=== PATIENT | male | born 1935 | race Caucasian/White ===

== ENCOUNTER 2019-09-20 15:43 | Outpatient (CLI) | payer OTHER, SELFPAY ==
--- NOTE | 2019-09-20 16:14 | MR_ITS ---
WS: [id number] MRI CERVICAL SPINE HISTORY: CHRONIC NECK PAIN COMPARISON: None available. C3 anterolisthesis by 4.4 mm. Less than 2 mm retrolisthesis of C4. There is severe degenerative disc disease at C4-5, C5-6 and C6-7. Osteophytic ridging and disc bulgin g at multiple levels. Craniocervical junction, C1 and C2 relationship, odontoid process and soft tissues are normal. C2-C3: Mild osteophytic ridging with no stenosis. C3-C4: Mild unroofing of the disc. There is annular disc bulging and osteophytic ridging. Contact on the ventral cord moderate central and bilateral foraminal stenosis. C4-C5: Diffuse osteophytic ridging. Severe disc space narrowing at this level. Mild central stenosis. Severe bilateral foraminal stenosis, LEFT greater than RIGHT predominantly due to osteophytes. C5-C6: Marked osteophytic ridging and facet arthritis. Mild central stenosis with moderate bilateral foraminal stenosis, LEFT greater than RIGHT. C6-C7: Marked osteophytic ridging with mild central stenosis. Moderate bilateral foraminal stenosis. C7-T1: Diffuse annular disc bulging and osteophytic ridging. Mild facet arthropathy. Mild central and bilateral foraminal stenosis. Paraspinal soft tissue are normal. MR/MR cervical spin wo con* [id number] IMPRESSION: 1. Severe degenerative changes throughout the cervical spine. Multilevel steno ses due to combination of osteophytic ridging and disc disease. 2. C3 anterolisthesis by 4.4 mm. 3. Advanced degenerative disc disease most significant at C4-5, C5-6 and C6-7. 4. Moderate central and bilateral foraminal stenosis is at the C3-4 level. 5. Mild central stenosis with severe bilateral foraminal stenosis at C4-5. 6. Mild central stenosis with moderate bilateral foraminal stenosis at C5-6 an d C6-7.
== END 2019-09-20 15:44 | disposition home or self-care (01) ==
PROVIDERS: Family Provider Internal Medicine; PCP Internal Medicine; Visit Provider Emergency Medicine Emergency Medical Services
DX: G89.29 Other chronic pain (principal); M48.02 Spinal stenosis, cervical region; M25.78 Osteophyte, vertebrae; M50.323 Other cervical disc degeneration at C6-C7 level
CPT/HCPCS: 72141

== ENCOUNTER 2019-10-24 04:42 | Emergency (ER) | payer OTHER, MEDICARE, SELFPAY ==
[2019-10-24 04:45] VITALS: BP 188/79; PULSE 68; RESP 17; TEMP 36.8; O2SAT 97; BMI 19.5
--- NOTE | 2019-10-24 04:53 | CTR_ITS ---
PROCEDURE INFORMATION: Exam: CT Abdomen And Pelvis Without Contrast Exam date and time: 10/24/2019 5:28 AM Age: 84 years old Clinical indication: Abdominal pain; Flank; Right; Prior surgery; Surgery date: 6+ months; Surgery type: Appy; Additional info: Flank pain TECHNIQUE: Imaging protocol: Computed tomography of the abdomen and pelvis without contrast. Radiation optimization: All CT scans at this facility use at least one of these dose optimization techniques: automated exposure control; mA and/or kV adjustment per patient size (includes targeted exams where dose is matched to clinical indication); or iterative reconstruction. COMPARISON: CT Abdomen/Pelvis Renal [id number] 11/14/2016 8:38 AM RADIATION DOSE METRICS: Total DLP (mGy-cm): 492.86 FINDINGS: Lungs: There is right middle lobe and lingular bronchiectasis with patchy areas of irregular peribronchovascular consolidation. Liver: The liver is normal. Gallbladder and bile ducts: The gallbladder is normal. There is no biliary dilation. Pancreas: There is moderate atrophy of the pancreas. Spleen: Splenic size is normal. There are scattered calcifications consistent with healed granulomas. Adrenals: The adrenal glands are unremarkable. Kidneys and ureters: Moderate right hydronephrosis. Right renal and perirenal edema. Diffusely distended right ureter. 5 x 3 x 3 mm stone in the distal right ureter at the ureterovesical junction. No hydronephrosis or ureteral dilation on the left. There are bilateral nonobstructive intrarenal stones. Stomach and bowel: The stomach is unremarkable. The small bowel is nondilated. The colon is unremarkable. Appendix: The appendix is not definitively identified, although there are no secondary signs of appendicitis. Intraperitoneal space: There is no free air or significant intraperitoneal free fluid. Vasculature: There is moderate aortic atherosclerotic disease. There is no aortic aneurysm. Lymph nodes: There is no lymphadenopathy in the retroperitoneum, mesentery, pelvis or inguinal regions. Bladder: The bladder wall is thin. There is a 3 mm stone lying dependently in the bladder lumen near the left ureterovesical junction. Reproductive: The prostate and seminal vesicles are unremarkable. Bones/joints: There is severe multilevel degenerative disease in the lumbar spine. There is moderate degenerative disease of the right hip. The pelvis and hips are intact. Soft tissues: The ventral abdominal wall is intact. There is a fat containing right posterior diaphragmatic hernia. CT/CT kidney stone [id number] IMPRESSION: 1. 5 mm obstructive stone in the distal right ureter at the ureterovesical junction producing moderate hydronephrosis. 2. Bilateral nonobstructive nephrolithiasis. 3. 3 mm stone in the urinary bladder. 4. 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 5. Incidental findings above. Radiation Dose CTDIVOL = (mGy): DLP = 492.86 (mGy-cm)
--- NOTE | 2019-10-24 05:02 | W.ED.ABDPA2 ---
Documented by User: Tobias Polanco DO 10/24/19 05:50 HPI - Abdominal Pain General: Chief Complaint: Abdominal Pain Stated Complaint: ABD PAIN; R FLANK PAIN/BACK PAIN Time Seen by Provider: 10/24/19 04:52 History of Present Illness: HPI narrative: 84-year-old male complains of right-sided back and flank pain radiating into his abdomen for the last 7 days or so on and off. He notes that it came and went several times, but is been constant since midnight last night. No vomiting. No fever. Some hesitancy and frequency. No blood in the urine. MD elicited complaint: flank pain Pertinent past history: kidney stones Onset (ago): day(s) Pain Consistency: constant Location: R flank and Pelvis Severity: moderate Quality: stabbing Radiation: RLQ Exacerbating factors: movement Relieving factors: nothing Associated Symptoms: Reports constipation and nausea; Denies coffee ground emesis, fever(s), hematochezia, hematuria and vomiting Review of Systems Const: Denies: fever(s) Eyes: Denies: change in vision ENMT: Denies: swelling of lips/tongue Card: Denies: chest pain, palpitations or irregular heart rhythm Resp: Denies: dyspnea or productive cough GI: Reports: nausea and constipation; Denies: vomiting, coffee ground emesis or hematochezia : Denies: hematuria Musc: Reports: back pain; Denies: neck pain Skin/Breast: Denies: rash Neuro: Denies: headache(s), dizziness or vertigo Psych: Denies: anxiety Physical Exam Const: GENERAL APPEARANCE: well developed ORIENTATION/CONSCIOUSNESS: Yes oriented to person, Yes oriented to place and Yes oriented to time HENMT: COMMON NORMALS: normocephalic, external ears normal and Normal external nose present HEAD & SCALP: normocephalic FACE & SINUS: normal facial exam NOSE: Normal external nose present and No nasal discharge present EXTERNAL EAR: Yes external ears normal MOUTH: tongue normal Eye: COMMON NORMALS: Equal, round and reactive pupils present, EOMs intact bilaterally and conjunctivae normal EYELID: eyelids normal CONJUNCTIVA: Yes conjunctivae normal PUPIL: Yes Equal, round and reactive pupils present Neck/C-Spine: GENERAL: No tracheal deviation Chest: COMMONS NORMALS: normal inspection of the chest CHEST: No tenderness Resp: COMMON NORMALS: clear to auscultation bilaterally EFFORT & INSPECTION: No tachypneic, No respiratory distress, No retractions, No uses accessory muscles and No tracheal deviation AUSCULTATION: clear to auscultation bilaterally, no rhonchi, no wheezes and lung sounds not diminished Cardio: COMMON NORMALS: regular rate and regular rhythm RATE: regular rate RHYTHM: regular rhythm HEART SOUNDS: no murmurs PERIPHERAL PULSES: radial pulses present GI: INSPECTION: No abdominal distension AUSCULTATION: No Hyperactive bowel sounds present and No Hypoactive bowel sounds present PALPATION: No Guarding due to palpation present (GI) and No Rigid due to palpation PERCUSSION: no dullness to percussion and no tympanic to percussion : BLADDER/KIDNEY EXAM: Yes CVA tenderness on the right Back/Pelvis: GENERAL BACK: Yes CVA tenderness Neuro: SENSORIUM/ORIENTATION: Yes oriented to person, Yes oriented to place and Yes oriented to time Psych: COMMON NORMALS: mental status grossly normal Skin: COMMON NORMALS: no rashes or lesions noted GENERAL SKIN EXAM: no rashes or lesions noted Course Vital Signs: Vital signs: Vital Signs Temperature 98.2 F 10/24/19 04:45 Pulse Rate 52 L 10/24/19 07:38 Respiratory Rate 16 10/24/19 07:38 Blood Pressure 149/69 10/24/19 07:38 Pulse Oximetry 98 10/24/19 07:38 MDM - Abdominal Pain MDM Narrative: Medical decision making narrative: 84-year-old male presents with right flank pain on and off for the last week. No fever. No vomiting. His white blood cell count is 8.9. Hemoglobin 12. Creatinine is 1.4. On CT he has by my measurement of 4 to 5 mm stone at the right UVJ with right-sided hydronephrosis. Awaiting a official read. Also awaiting a urine sample. Will be checked out to Dr. Gomes at shift change. Lab Data: Labs: Lab Results 10/24/19 10/24/19 10/24/19 Range/Units 05:02 05:02 05:24 WBC 8.9 (4.0-10.0) 10^3/ uL RBC 4.15 (4.1-5.3) 10^6/u L Hgb 12.0 (11.7-16.6) g/dL Hct 37.6 L (42.0-52.0) % MCV 90.6 (80-94) fL MCH 28.9 (28.0-34.0) pg MCHC 31.9 (30.0-36.0) g/dL RDW 13.5 (12.1-15.1) % Plt Count 230 (130-400) 10^3/c mm MPV 10.3 (7.4-10.4) fL Neut % (Auto) 66.5 % Lymph % (Auto) 21.7 % [place] % (Auto) 9.8 % Eos % (Auto) 1.6 % Baso % (Auto) 0.2 % Neut # (Auto) 5.9 (1.8-7.7) 10^3/u L Lymph # (Auto) 1.9 (0.8-4.8) 10^3/u L [place] # (Auto) 0.9 (0.2-0.9) 10^3/u L Eos # (Auto) 0.1 (0.0-0.8) 10^3/u L Baso # (Auto) 0.0 (0.0-0.1) 10^3/u L Nucleated RBC % (a uto) 0 % Nucleated RBCs # 0.0 /100WBC Sodium 139 (136-145) mmol/L Potassium 4.4 (3.5-5.1) mmol/L Chloride 103 (98-107) mmol/L Carbon Dioxide 26 (22-29) mmol/L Anion Gap 14.4 (5-19) BUN 18 (8-23) mg/dL Creatinine 1.4 H (0.7-1.2) mg/dL Glucose 121 H (65-115) mg/dL Calculated Osmolal ity 286 (285-295) mOsm/k g Calcium 9.5 (8.5-10.5) mg/dL Total Bilirubin 0.5 (0.15-1.2) mg/dL AST 22 (0-40) U/L ALT 11 (0-41) U/L Alkaline Phosphata se 103 (40-130) IU/L Total Protein 7.4 (6.6-8.7) g/dL Albumin 4.0 (3.5-5.2) g/dL Globulin 3.4 (1.3-4.6) g/dL Urine Color Yellow (Yellow) Urine Appearance Clear (CLEAR) Urine pH 5 (5-7) Ur Specific Gravit y 1.020 (1.005-1.030) Urine Protein Neg (Negative) Urine Glucose (UA) Norm (Normal) Urine Ketones Negative (Negative) Urine Blood 2+ H (Negative) Urine Nitrate Negative (Negative) Urine Bilirubin Neg (NEGATIVE) Urine Urobilinogen Norm (Negative) mg/dL Ur Leukocyte Joceline ase Negative (Negative) Urine RBC 10-15 H (0-2) /hpf Urine WBC 0-4 H (0-5) /hpf Ur Squamous Epith Cells 0-4 H (0-5) Amorphous Sediment Not Reportable Urine Bacteria Trace (NONE) Hyaline Casts Rare Urine Mucus 1+ Discharge Plan Discharge Patient Disposition: Home, Self-Care Clinical Impression: Calculus of kidney Condition: Stable Prescriptions: New hydrocodone-acetaminophen 5-325 mg tablet 1 tab PO Q6H PRN (Reason: pain) Qty: 25 RF: 0 Zofran 4 mg tablet 4 mg PO Q6H PRN (Reason: nausea and vomiting) Qty: 20 RF: 0 tamsulosin 0.4 mg capsule 0.4 mg PO DAILY Qty: 14 RF: 0 Discharge Orders: Discharge Order (Routine); Ordered 10/24/19 Ordered By: Steve Gomes Referrals: George Dale MD [Physician] - (Follow-up renal stone) Discharge Diet: Advance as tolerated Discharge Activity: Resume usual activity Patient Instructions: Kidney Stones (ED), Renal Colic (ED), How to Strain Your Urine (ED) Discharge Date/Time: 10/24/19 07:38 Sign Out Sign Out Data: Patient Sign Out occurred on 10/24/19 at 06:27. Patient's care was discussed, and care was transferred from to Steve Gomes DO. Coding Level of Care Code ED Customer Orders Clerk for [employer] Exam Comprehensive Documented by User: Steve Gomes DO 10/24/19 14:41 HPI - Abdominal Pain General: Chief Complaint: Abdominal Pain Stated Complaint: ABD PAIN; R FLANK PAIN/BACK PAIN Time Seen by Provider: 10/24/19 04:52 Course Vital Signs: Vital signs: Vital Signs Temperature 98.2 F 10/24/19 04:45 Pulse Rate 52 L 10/24/19 07:38 Respiratory Rate 16 10/24/19 07:38 Blood Pressure 149/69 10/24/19 07:38 Pulse Oximetry 98 10/24/19 07:38 MDM - Abdominal Pain MDM Narrative: Medical decision making narrative: Patient has nephrolithiasis. Will discharge home on Zofran hydrocodone and tamsulosin Follow-up with Dr. Suyapa su stone return to pathology lab available his pain is well controlled now all questions were answered patient is experiencing good pain control will discharge home with above plan. Lab Data: Labs: Lab Results 10/24/19 10/24/19 10/24/19 Range/Units 05:02 05:02 05:24 WBC 8.9 (4.0-10.0) 10^3/ uL RBC 4.15 (4.1-5.3) 10^6/u L Hgb 12.0 (11.7-16.6) g/dL Hct 37.6 L (42.0-52.0) % MCV 90.6 (80-94) fL MCH 28.9 (28.0-34.0) pg MCHC 31.9 (30.0-36.0) g/dL RDW 13.5 (12.1-15.1) % Plt Count 230 (130-400) 10^3/c mm MPV 10.3 (7.4-10.4) fL Neut % (Auto) 66.5 % Lymph % (Auto) 21.7 % [place] % (Auto) 9.8 % Eos % (Auto) 1.6 % Baso % (Auto) 0.2 % Neut # (Auto) 5.9 (1.8-7.7) 10^3/u L Lymph # (Auto) 1.9 (0.8-4.8) 10^3/u L [place] # (Auto) 0.9 (0.2-0.9) 10^3/u L Eos # (Auto) 0.1 (0.0-0.8) 10^3/u L Baso # (Auto) 0.0 (0.0-0.1) 10^3/u L Nucleated RBC % (a uto) 0 % Nucleated RBCs # 0.0 /100WBC Sodium 139 (136-145) mmol/L Potassium 4.4 (3.5-5.1) mmol/L Chloride 103 (98-107) mmol/L Carbon Dioxide 26 (22-29) mmol/L Anion Gap 14.4 (5-19) BUN 18 (8-23) mg/dL Creatinine 1.4 H (0.7-1.2) mg/dL Glucose 121 H (65-115) mg/dL Calculated Osmolal ity 286 (285-295) mOsm/k g Calcium 9.5 (8.5-10.5) mg/dL Total Bilirubin 0.5 (0.15-1.2) mg/dL AST 22 (0-40) U/L ALT 11 (0-41) U/L Alkaline Phosphata se 103 (40-130) IU/L Total Protein 7.4 (6.6-8.7) g/dL Albumin 4.0 (3.5-5.2) g/dL Globulin 3.4 (1.3-4.6) g/dL Urine Color Yellow (Yellow) Urine Appearance Clear (CLEAR) Urine pH 5 (5-7) Ur Specific Gravit y 1.020 (1.005-1.030) Urine Protein Neg (Negative) Urine Glucose (UA) Norm (Normal) Urine Ketones Negative (Negative) Urine Blood 2+ H (Negative) Urine Nitrate Negative (Negative) Urine Bilirubin Neg (NEGATIVE) Urine Urobilinogen Norm (Negative) mg/dL Ur Leukocyte Joceline ase Negative (Negative) Urine RBC 10-15 H (0-2) /hpf Urine WBC 0-4 H (0-5) /hpf Ur Squamous Epith Cells 0-4 H (0-5) Amorphous Sediment Not Reportable Urine Bacteria Trace (NONE) Hyaline Casts Rare Urine Mucus 1+ Discharge Plan Discharge Patient Disposition: Home, Self-Care Clinical Impression: Calculus of kidney Condition: Stable Prescriptions: New hydrocodone-acetaminophen 5-325 mg tablet 1 tab PO Q6H PRN (Reason: pain) Qty: 25 RF: 0 Zofran 4 mg tablet 4 mg PO Q6H PRN (Reason: nausea and vomiting) Qty: 20 RF: 0 tamsulosin 0.4 mg capsule 0.4 mg PO DAILY Qty: 14 RF: 0 Discharge Orders: Discharge Order (Routine); Ordered 10/24/19 Ordered By: Steve Gomes Referrals: George Dale MD [Physician] - (Follow-up renal stone) Discharge Diet: Advance as tolerated Discharge Activity: Resume usual activity Patient Instructions: Kidney Stones (ED), Renal Colic (ED), How to Strain Your Urine (ED) Discharge Date/Time: 10/24/19 07:38 Sign Out Sign Out Data: Patient Sign Out occurred on 10/24/19 at 06:27. Patient's care was discussed, and care was transferred from to Steve Gomes DO. Coding Level of Care Code ED Customer Orders Clerk for [place] Fwd Exam Comprehensive
[2019-10-24 05:08] VITALS: BP 146/72; PULSE 53; RESP 18; O2SAT 98
[2019-10-24 05:16] LABS: Basophils % 0.2 %; Eosinophils # 0.1 10^3/uL (0.0-0.8); Eosinophils % 1.6 %; Hematocrit 37.6 % (42.0-52.0); Lymphocytes # 1.9 10^3/uL (0.8-4.8); Lymphocytes % 21.7 %; Mean Corpuscular HGB Conc 31.9 g/dL (30.0-36.0); Mean Corpuscular Hemoglobin 28.9 pg (28.0-34.0); Mean Corpuscular Volume 90.6 fL (80-94); Mean Platelet Volume 10.3 fL (7.4-10.4); Monocytes # 0.9 10^3/uL (0.2-0.9); Monocytes % 9.8 %; Neutrophils # 5.9 10^3/uL (1.8-7.7); Neutrophils % 66.5 %; Nucleated Red Blood Cells % 0 %; Platelet Count 230 10^3/cmm (130-400); Red Blood Count 4.15 10^6/uL (4.1-5.3); Red Cell Distribution Width 13.5 % (12.1-15.1); White Blood Count 8.9 10^3/uL (4.0-10.0)
[2019-10-24] MEDS: ondansetron 2 mg/ML SDV 2 mL 4 MG IVP (05:31)
[2019-10-24] MEDS: sodium chloride 0.9% 500 ML IV (05:31)
[2019-10-24 05:32] VITALS: RESP 18
[2019-10-24] MEDS: HYDROmorphone 1 mg/mL INJ 1 mL IVP (05:32)
[2019-10-24 05:33] LABS: Alanine Aminotransferase 11 U/L (0-41); Alkaline Phosphatase 103 IU/L (40-130); Anion Gap 14.4 (5-19); Aspartate Amino Transferase 22 U/L (0-40); Blood Urea Nitrogen 18 mg/dL (8-23); Calcium 9.5 mg/dL (8.5-10.5); Carbon Dioxide 26 mmol/L (22-29); Chloride 103 mmol/L (98-107); Globulin 3.4 g/dL (1.3-4.6); Glucose 121 mg/dL (65-115); Osmolality Calculated 286 mOsm/kg (285-295); Potassium 4.4 mmol/L (3.5-5.1); Sodium 139 mmol/L (136-145); Total Bilirubin 0.5 mg/dL (0.15-1.2); Total Protein 7.4 g/dL (6.6-8.7)
--- NOTE | 2019-10-24 05:39 | PC.NURSE ---
Pt. to CT scan via stretcher, with tech
[2019-10-24 05:59] VITALS: BP 125/73; PULSE 59; RESP 19; O2SAT 99
--- NOTE | 2019-10-24 06:00 | PC.NURSE ---
Pt. resting with eyes closed. Breathing even, non labored. VSS. 1:1 sitter at bedside. Awaiting acceptance at psychiatric facility
[2019-10-24 06:23] LABS: Add Urine Microscopic? YES; Bilirubin Urine Neg (NEGATIVE); Blood Urine 2+ (Negative); Glucose Urine UA Norm (Normal); Ketones Urine Negative (Negative); Leukocyte Esterase Urine Negative (Negative); Nitrate Urine Negative (Negative); Protein Urine Neg (Negative); Urine Appearance Clear (CLEAR); Urine Color Yellow (Yellow); Urobilinogen Urine Norm (Negative); pH Urine 5 (5-7)
[2019-10-24 06:24] LABS: Add Urine Culture? Yes; Bacteria Urine TRACE; Hyaline Casts Urine RARE; Mucus Urine 1+; Squamous Epithelial Cell Urine 0-4 (0-5); WBC Urine 0-4 /hpf (0-5)
[2019-10-24 07:38] VITALS: BP 149/69; PULSE 52; RESP 16; O2SAT 98
--- NOTE | 2019-10-27 12:29 | DCPLANNER ---
funeral location manager had message to schedule a follow up appointment for patient with Dr. Dale. funeral location manager called the office of Dr. Dale, spoke with Dorian, gave clinic patients information. funeral location manager was told that patients information would be printed and reviewed. Clinic will call patient with appointment information. Patient has [facility] insurance, insurance case manager called Shira with [facility], and informed her that patient was seen in the ER and that patient needed a follow up appointment with urology.
--- NOTE | 2019-11-10 14:22 | DCPLANNER ---
clothing manager called the office of Dr. Dale to confirm if an appointment had been scheduled for patient. clothing manager spoke with Marti, was told that patient cancelled appointment.
== END 2019-10-24 07:38 | disposition home or self-care (01) ==
PROVIDERS: Emergency Medicine; Emergency Provider Family Medicine; PCP Internal Medicine
DX: N20.0 Calculus of kidney (principal)
CPT/HCPCS: 12345; 74176; 80053; 81001; 81003; 85025; 87086; 96361; 96374; 96375; 99283; J1170; J2405; J7040

== ENCOUNTER 2019-11-30 14:14 | Emergency (ER) | payer OTHER, MEDICARE, SELFPAY ==
[2019-11-30 14:28] VITALS: BP 143/80; PULSE 87; RESP 14; TEMP 37; O2SAT 96; BMI 19.5
--- NOTE | 2019-11-30 14:35 | ED_ITS ---
HPI - General Adult General: Chief complaint: General Medical Stated complaint: vertigo Time Seen by Provider: 11/30/19 14:33 History of Present Illness: HPI narrative: 84-year-old male presents emergency room complaining of vertigo is been off and on for several months the last month is been particularly bad he states when he standing up anytime he looks up he will get severe unsteadiness when asking about spinning sensation however though he does not get that he does gets very unsteady and he will feel like he is going loses balance and falls. Gets better if he sits down he can look up when he seated and it does not bother nearly as bad. Not really take anything for it [facility] and was [facility] here he denies any chest pain or tightness. He is not been sick recently no fever no respiratory symptoms. Onset (ago): day(s) Location: head Severity: severe Relieving factors: rest Exacerbating factors: other (Looking up while standing) Associated symptoms: Deny chest pain, confusion, cough, diaphoresis, decreased appetite, dyspnea, fevers/chills, headache(s), malaise, nausea, rash, palpitations, seizures, short of breath, syncope, vomiting or weakness Treatments prior to arrival: none Review of Systems Const: Denies: malaise or diaphoresis ENMT: Denies: throat pain, ear or mastoid pain, nasal discharge or nasal congestion Card: Denies: chest pain, palpitations or syncope Resp: Denies: dyspnea GI: Denies: nausea or vomiting : Denies: flank pain, dysuria, urinary frequency or urinary urgency Skin/Breast: Denies: rash or pruritus Neuro: Denies: headache(s) or confusion PFSH ED PFSH: Medical History (Updated 11/30/19 @ 17:08 by Steve Gomes DO) BPH (benign prostatic hyperplasia) Nephrolithiasis Surgical History (Updated 11/30/19 @ 15:07 by Steve Gomes DO) History of appendectomy History of hernia repair Social History (Updated 11/30/19 @ 15:07 by Steve Gomes DO) Smoking and tobacco status: never smoked Alcohol intake: never Physical Exam Const: COMMON NORMALS: no acute distress GENERAL APPEARANCE: cooperative and comfortable ORIENTATION/CONSCIOUSNESS: Yes awake, Yes oriented to person, Yes oriented to place and Yes oriented to time HENMT: COMMON NORMALS: normocephalic, atraumatic and hearing grossly normal bilaterally HEAD & SCALP: normocephalic and atraumatic Eye: COMMON NORMALS: Equal, round and reactive pupils present, EOMs intact bilaterally, conjunctivae normal and no scleral icterus CONJUNCTIVA: Yes conjunctivae normal PUPIL: Yes Equal, round and reactive pupils present Neck/C-Spine: COMMON NORMALS: full ROM, no lymphadenopathy, supple and no JVD Lymph: LYMPHATIC: no lymphadenopathy noted and no lymphedema noted Resp: COMMON NORMALS: normal respiratory effort, No retractions, No use of accessory muscles and clear to auscultation bilaterally AUSCULTATION: clear to auscultation bilaterally Cardio: COMMON NORMALS: no JVD, regular rate, regular rhythm and No murmurs present (Cardio) RATE: regular rate RHYTHM: regular rhythm GI: COMMON NORMALS: Soft to palpation and No hepatosplenomegaly present AUSCULTATION: Yes normoactive bowel sounds PALPATION: Yes Soft to palpation, No Tenderness to palpation present (GI), No Guarding due to palpation present (GI) and Yes No hepatosplenomegaly present Extremity: COMMON NORMALS: normal to inspection, capillary refill normal, no clubbing, cyanosis or edema, no calf tenderness and no pedal edema Neuro: SENSORIUM/ORIENTATION: Yes oriented to person, Yes oriented to place and Yes oriented to time OTHER: No focal neurologic deficits Skin: COMMON NORMALS: no rashes or lesions noted GENERAL SKIN EXAM: no rashes or lesions noted Course Vital Signs: Vital signs: Vital Signs Temperature 98.6 F 11/30/19 14:28 Pulse Rate 59 L 11/30/19 17:34 Respiratory Rate 14 11/30/19 17:34 Blood Pressure 150/71 11/30/19 17:34 Pulse Oximetry 97 11/30/19 17:34 MDM - General Adult MDM Narrative: Medical decision making narrative: She is somewhat improved already it is reproducible with change in position no other findings on evaluation will go ahead and discharge home put her on meclizine return if she has any further problems Lab Data: Labs: Lab Results 11/30/19 11/30/19 Range/Units 14:57 14:57 WBC 6.5 (4.0-10.0) 10^3/ uL RBC 3.73 L (4.1-5.3) 10^6/u L Hgb 10.5 L (11.7-16.6) g/dL Hct 33.6 L (42.0-52.0) % MCV 90.1 (80-94) fL MCH 28.2 (28.0-34.0) pg MCHC 31.3 (30.0-36.0) g/dL RDW 12.7 (12.1-15.1) % Plt Count 257 (130-400) 10^3/c mm MPV 10.0 (7.4-10.4) fL Neut % (Auto) 68.1 % Lymph % (Auto) 19.5 % [place] % (Auto) 9.9 % Eos % (Auto) 1.9 % Baso % (Auto) 0.3 % Neut # (Auto) 4.39 (1.8-7.7) 10^3/u L Lymph # (Auto) 1.3 (0.8-4.8) 10^3/u L [place] # (Auto) 0.6 (0.2-0.9) 10^3/u L Eos # (Auto) 0.1 (0.0-0.8) 10^3/u L Baso # (Auto) 0.0 (0.0-0.1) 10^3/u L Nucleated RBC % (a uto) 0 % Nucleated RBCs # 0.0 /100WBC Sodium 135 L (136-145) mmol/L Potassium 4.4 (3.5-5.1) mmol/L Chloride 100 (98-107) mmol/L Carbon Dioxide 27 (22-29) mmol/L Anion Gap 12.4 (5-19) BUN 21 (8-23) mg/dL Creatinine 1.2 (0.7-1.2) mg/dL GFR Calculation Not Reportable Glucose 121 H (65-115) mg/dL Calculated Osmolal ity 278 L (285-295) mOsm/k g Calcium 9.5 (8.5-10.5) mg/dL Total Bilirubin 0.3 (0.15-1.2) mg/dL AST 19 (0-40) U/L ALT 9 (0-41) U/L Alkaline Phosphata se 103 (40-130) IU/L Total Protein 7.3 (6.6-8.7) g/dL Albumin 3.6 (3.5-5.2) g/dL Globulin 3.7 (1.3-4.6) g/dL Discharge Plan Discharge Patient Disposition: Home Clinical Impression: Positional vertigo Condition: Stable Prescriptions: New meclizine 25 mg tablet 25 mg PO DAILY PRN (Reason: dizziness) Qty: 20 RF: 0 No Action losartan 50 mg Tablet 25 mg PO DAILY RF: 0 latanoprost 0.005 % drops 1 drp ophthalmic (eye) QPM RF: 0 Calcium 600 600 mg calcium (1,500 mg) Tablet 600 mg PO DAILY RF: 0 iron 325 mg (65 mg iron) Tablet 325 mg PO DAILY RF: 0 ibuprofen 200 mg Tablet 200 mg PO BID RF: 0 omeprazole 20 mg Capsule,Delayed Release(Dr/Ec) 20 mg PO QAM RF: 0 timolol maleate 0.5 % drops 1 drp ophthalmic (eye) BID RF: 0 Flonase Allergy Relief 50 mcg/actuation [place],Suspension 2 spray INTRANASAL DAILY PRN (Reason: unknown) RF: 0 Proscar 5 mg Tablet 5 mg PO DAILY RF: 0 brimonidine 0.15 % drops 1 drp ophthalmic (eye) BID RF: 0 Glucosamine Complex-MSM Capsule 1 cap PO DAILY RF: 0 Fish Oil 1,000 mg (120 mg-180 mg) Capsule 1 cap PO DAILY RF: 0 calcitonin (salmon) 1 spray nasal DAILY RF: 0 tamsulosin 0.4 mg capsule 0.4 - 0.8 mg PO DAILY RF: 0 Discharge Orders: Discharge Order (Routine); Ordered 11/30/19 Ordered By: Steve Gomes Referrals: Wilber Dodge MD [Primary Care Provider] - Discharge Diet: Usual diet Discharge Activity: Limit activity as instructed Activity Restrictions/Additional Instructions: Follow-up with Dr. Dodge in 1 week return to the ER if you have further problems Discharge Date/Time: 11/30/19 17:35 Coding Level of Care Code ED Police Dispatcher for [place] Exam Comprehensive NIH stroke score NIHSS Level Of Consciousness - 1a: 0 Level Of Consciousness Questions - 1b: Both Correct Level Of Consciousness Commands - 1c: Both Correct Best Gaze - 2: Normal Visual [place] - 3: No Visual Loss Facial Palsy - 4: Normal Motor Arm Right - 5: No Drift Motor Arm Left - 5: No Drift Motor Leg Right - 6: No Drift Motor Leg Left - 6: No Drift Limb Ataxia - 7: Absent Sensory - 8: Normal Best Language - 9: No Aphasia Dysarthia - 10: Normal Extinction And Inattention - 11: 0 Score Total Score: 0
[2019-11-30 14:46] VITALS: O2SAT 96
--- NOTE | 2019-11-30 14:47 | CTR_ITS ---
PROCEDURE INFORMATION: Exam: CT Angiography Head With Contrast Exam date and time: 11/30/2019 3:44 PM Age: 84 years old Clinical indication: Other: CVA; Patient HX: Vertigo x1 month, gets foggy when standing TECHNIQUE: Imaging protocol: Computed tomography angiography of the head with intravenous contrast. 3D rendering: MIP and/or 3D reconstructed images were created by the technologist. Radiation optimization: All CT scans at this facility use at least one of these dose optimization techniques: automated exposure control; mA and/or kV adjustment per patient size (includes targeted exams where dose is matched to clinical indication); or iterative reconstruction. Contrast material: VISIPAQUE 320; Contrast volume: 95 ml; Contrast route: INTRAVENOUS (IV); COMPARISON: CT head wo con* [id number] 11/30/2019 4:13 PM RADIATION DOSE METRICS: Total DLP (mGy-cm): 1544.03 FINDINGS: ANTERIOR CIRCULATION: Right internal carotid artery: Unremarkable. Intracranial segment is patent with no significant stenosis. No aneurysm. Right middle cerebral artery: Unremarkable. No occlusion or significant stenosis. No aneurysm. Right anterior cerebral artery: Unremarkable. No occlusion or significant stenosis. No aneurysm. Left internal carotid artery: Unremarkable. Intracranial segment is patent with no significant stenosis. No aneurysm. Left middle cerebral artery: Unremarkable. No occlusion or significant stenosis. No aneurysm. Left anterior cerebral artery: Unremarkable. No occlusion or significant stenosis. No aneurysm. POSTERIOR CIRCULATION: Right vertebral artery: Unremarkable. No occlusion or significant stenosis. No aneurysm. Left vertebral artery: Unremarkable. No occlusion or significant stenosis. No aneurysm. Basilar artery: Unremarkable. No occlusion or significant stenosis. No aneurysm. Right posterior cerebral artery: Unremarkable. No occlusion or significant stenosis. No aneurysm. Left posterior cerebral artery: Unremarkable. No occlusion or significant stenosis. No aneurysm. IMPRESSION: No large vessel stenosis or occlusion. PROCEDURE INFORMATION: Exam: CT Angiography Neck With Contrast Exam date and time: 11/30/2019 3:44 PM Age: 84 years old Clinical indication: Other: CVA; Patient HX: Vertigo x1 month, gets foggy when standing TECHNIQUE: Imaging protocol: Computed tomography angiography of the neck with intravenous contrast. 3D rendering: MIP and/or 3D reconstructed images were created by the technologist. Radiation optimization: All CT scans at this facility use at least one of these dose optimization techniques: automated exposure control; mA and/or kV adjustment per patient size (includes targeted exams where dose is matched to clinical indication); or iterative reconstruction. Contrast material: VISIPAQUE 320; Contrast volume: 95 ml; Contrast route: INTRAVENOUS (IV); COMPARISON: CT head wo con* [id number] 11/30/2019 4:13 PM RADIATION DOSE METRICS: Total DLP (mGy-cm): 1544.03 FINDINGS: Right common carotid artery: No stenosis. No dissection or occlusion. Right internal carotid artery: Minimal calcified plaque proximally. Tortuous. No stenosis of the extracranial segment. No dissection or occlusion. Right external carotid artery: No occlusion or stenosis of the origin. Right vertebral artery: No stenosis. No dissection or occlusion. Left common carotid artery: No stenosis. No dissection or occlusion. Left internal carotid artery: Minimal partially calcified plaque proximally. Tortuous. No stenosis of the extracranial segment. No dissection or occlusion. Left external carotid artery: No occlusion or stenosis of the origin. Left vertebral artery: No stenosis. No dissection or occlusion. Bones/joints: No acute fracture. Soft tissues: Normal. No significant soft tissue swelling. CT/CT angio headneck* [id number] IMPRESSION: No stenosis or occlusion. REFERENCES: NASCET CRITERIA. The degree of internal carotid artery stenosis is based on NASCET criteria. Normal is no stenosis. Mild is less than 50% stenosis. Moderate is 50-69% stenosis. Severe is 70% to 99% stenosis. Total occlusion is no detectable patent lumen. Radiation Dose CTDIVOL = (mGy): DLP = 1544.03~1544.03 (mGy-cm)
--- NOTE | 2019-11-30 14:47 | CTR_ITS ---
PROCEDURE INFORMATION: Exam: CT Head Without Contrast Exam date and time: 11/30/2019 3:44 PM Age: 84 years old Clinical indication: Dizziness and numbness / parasthesia; Left; Additional info: L arm numbness TECHNIQUE: Imaging protocol: Computed tomography of the head without contrast. Radiation optimization: All CT scans at this facility use at least one of these dose optimization techniques: automated exposure control; mA and/or kV adjustment per patient size (includes targeted exams where dose is matched to clinical indication); or iterative reconstruction. COMPARISON: No relevant prior studies available. RADIATION DOSE METRICS: Total DLP (mGy-cm): 863.21 FINDINGS: Brain: No acute intracranial mass or bleed. Mild generalized cerebral atrophy. Mild cerebral hemisphere subcortical and periventricular white matter low-density which appears chronic. Punctate left basal ganglion mineralization. Ventricles: Normal. No ventriculomegaly. Bones/joints: Unremarkable. No acute fracture. Sinuses: Visualized sinuses are unremarkable. No fluid levels. Mastoid air cells: Visualized mastoid air cells are well aerated. Soft tissues: Unremarkable. CT/CT head wo con* [id number] IMPRESSION: No acute findings. Mild cerebral atrophy and mild senescent white matter changes. Radiation Dose CTDIVOL = (mGy): DLP = 863.21 (mGy-cm)
[2019-11-30 15:02] LABS: Basophils % 0.3 %; Eosinophils # 0.1 10^3/uL (0.0-0.8); Eosinophils % 1.9 %; Hematocrit 33.6 % (42.0-52.0); Hemoglobin 10.5 g/dL (11.7-16.6); Lymphocytes # 1.3 10^3/uL (0.8-4.8); Lymphocytes % 19.5 %; Mean Corpuscular HGB Conc 31.3 g/dL (30.0-36.0); Mean Corpuscular Hemoglobin 28.2 pg (28.0-34.0); Mean Corpuscular Volume 90.1 fL (80-94); Monocytes # 0.6 10^3/uL (0.2-0.9); Monocytes % 9.9 %; Neutrophils # 4.39 10^3/uL (1.8-7.7); Neutrophils % 68.1 %; Nucleated Red Blood Cells % 0 %; Platelet Count 257 10^3/cmm (130-400); Red Blood Count 3.73 10^6/uL (4.1-5.3); Red Cell Distribution Width 12.7 % (12.1-15.1); White Blood Count 6.5 10^3/uL (4.0-10.0)
[2019-11-30 15:24] LABS: Alanine Aminotransferase 9 U/L (0-41); Albumin Level 3.6 g/dL (3.5-5.2); Alkaline Phosphatase 103 IU/L (40-130); Anion Gap 12.4 (5-19); Aspartate Amino Transferase 19 U/L (0-40); Blood Urea Nitrogen 21 mg/dL (8-23); Calcium 9.5 mg/dL (8.5-10.5); Carbon Dioxide 27 mmol/L (22-29); Chloride 100 mmol/L (98-107); Globulin 3.7 g/dL (1.3-4.6); Glucose 121 mg/dL (65-115); Osmolality Calculated 278 mOsm/kg (285-295); Potassium 4.4 mmol/L (3.5-5.1); Sodium 135 mmol/L (136-145); Total Bilirubin 0.3 mg/dL (0.15-1.2); Total Protein 7.3 g/dL (6.6-8.7)
[2019-11-30 16:16] VITALS: BP 148/76; PULSE 68; O2SAT 99
--- NOTE | 2019-11-30 16:17 | PC.NURSE ---
pt to CT by stretcher with tech
[2019-11-30] MEDS: iodixanol 320 mg/mL 100mL Btl IV (16:25)
[2019-11-30 17:34] VITALS: BP 150/71; PULSE 59; RESP 14; O2SAT 97
== END 2019-11-30 17:35 | disposition home or self-care (01) ==
PROVIDERS: Emergency Provider Family Medicine; PCP Internal Medicine
DX: H81.10 Benign paroxysmal vertigo, unspecified ear (principal)
CPT/HCPCS: 12345; 36415; 70450; 70496; 70498; 80053; 85025; 99282; 99284; Q9967

== ENCOUNTER → 2020-09-18 07:56 | Outpatient (BNVA) | payer OTHER, SELFPAY | PROVIDERS: PCP Internal Medicine; Referring Provider Emergency Medicine Emergency Medical Services; Visit Provider Specialist | DX: G56.02 Carpal tunnel syndrome, left upper limb (principal); G56.22 Lesion of ulnar nerve, left upper limb | CPT/HCPCS: 95885; 95908; 99202 ==

== ENCOUNTER → 2020-11-16 00:01 | Outpatient (BNVA) | payer OTHER, SELFPAY | PROVIDERS: PCP Internal Medicine; Visit Provider Orthopaedic Surgery | DX: Z01.812 Encounter for preprocedural laboratory examination (principal); Z20.822 Contact with and (suspected) exposure to COVID-19 | CPT/HCPCS: 87635 ==

== ENCOUNTER 2020-11-22 05:57 | Day surgery (SDC) | payer OTHER, SELFPAY ==
[2020-11-22 06:17] VITALS: BP 174/78; PULSE 76; RESP 16; TEMP 36.6; O2SAT 96
--- NOTE | 2020-11-22 06:50 | W.PM.OPSUD ---
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
[2020-11-22] MEDS: sodium chloride 0.9% 1,000 ML 30 ML IV (06:51)
--- NOTE | 2020-11-22 06:52 | ANES.PREANE2 ---
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 Proposed Procedure: Operation Date: 11/22/20 07:00 Proposed Procedures p left Carpal Tunnel Release [id number] g56.02 g56.22(Left) - Demetrius Ching MD s left Ulna Nerve Decompression(Left) - Demetrius Ching MD Familial anesthetic complications: None Was Beta Ramos taken within 24 hours: N/A Was Clonidine taken within 24 hours: N/A Last intake: Intake Last Liquid Date 11/21/20 Last Liquid Time 19:00 Last Solid Date 11/21/20 Last Solid Time 19:00 Social: Social History: No alcohol and No tobacco Exam: Pre-Anes Outpt Exam: alert, oriented x 3, clear to auscultation bilaterally and regular rate & rhythm Airway: Cervical ROM: WNL MP: 3 Dentition: Other CV/HEM: CV/HEM: HTN GI: GI: GERD Anesthetic Plan: ASA status: 2 Anesthesia: MAC and Regional (specify below) Risk of > 500 ml blood loss (7ml/kg in children): No Meds/Allergies Current Medications: Current Medications Generic Name Dose Route Start Last Admin Trade Name Freq PRN Reason Stop Dose Admin Sodium Chloride 1,000 mls @ 30 ml s/hr 11/22/20 06:15 11/22/20 06:51 Sodium Chloride 0.9% IV 11/23/20 06:14 30 mls/hr .Q24H JUICE Administration PFSH Anesthesia PFSH: Medical History BPH (benign prostatic hyperplasia) Nephrolithiasis Surgical History History of appendectomy History of hernia repair Social History Smoking and tobacco status: never smoked Alcohol intake: never Data Anesthesia Cardiac Studies: No Data to Display
--- NOTE | 2020-11-22 08:07 | P.OP_ITS ---
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 A tourniquet was inflated to 225 mmHg. A timeout was performed. A 5 cm long incision was made behind the medial epicondyle. Dissection was accomplished bluntly under loupe magnification identifying the ulnar nerve pr oximally. Utilizing a hemostat the fascia over the nerve was elevated and incised proximally. Dissection was then carried distally behind the medial epicondyle and into the flexor carpi ulnaris musculature. Dissection was stopped with the first muscular branches identified. Elbow was brought through range of motion with the nerve seen to stay reduced behind the medial epicondyle. No formal transition was thought to be warranted. Wounds were irrigated with saline. A 3 cm long incision was made in line with the fourth ray from the distal edge of the carpal tunnel extending proximally. The subcutaneous fat and palmar fascia was divided with a scalpel blade. Under loupe magnification the ulnar neurovascular bundle was identified distally. A hemostat could be passed under the transverse carpal ligament allowing the distal 25% to be divided. A slotted guide was then passed beneath the transverse carpal ligament and the middle 50% divided. Blunt scissors were then passed over the guide freeing the proximal ligament. The tourniquet was deflated. Hemostasis provided with electrocautery. Wound edges were infiltrated with 10 cc of a half percent Marcaine solution about the left medial elbow and left carpal tunnel incisions. Deep tissues were closed with 2-0 Vicryl. Skin edges were reapproximated with a running 3-0 Prolene along the medial elbow and simple Prolene stitches over the carpal tunnel incisions.. Sterile dressings were applied. The patient was taken to the recovery room in stable condition
[2020-11-22 08:12] VITALS: BP 176/81; PULSE 71; RESP 14; TEMP 36.3; O2SAT 99
[2020-11-22 08:18] VITALS: BP 160/77; PULSE 71; RESP 14; O2SAT 99
[2020-11-22 08:23] VITALS: BP 160/85; BP 162/70; PULSE 71; PULSE 75; RESP 14; RESP 17; TEMP 36.3; TEMP 36.6; O2SAT 99
--- NOTE | 2020-11-22 08:26 | SUR.OPER ---
0820 pt awake. good cap refill on operative hand. pt able to move all fingers. report given to ops.
[2020-11-22 08:38] VITALS: BP 180/80; PULSE 69; RESP 15; TEMP 36.6; O2SAT 98
--- NOTE | 2020-11-22 14:48 | ANE.PACU2 ---
Inpatient post-anesthesia follow up: Airway intact: Yes Vital signs: Temperature 98 F Pulse Rate 69 Respiratory Rate 15 Blood Pressure 180/80 Pulse Oximetry 98 Oxygen Delivery Me thod Room Air Oxygen Flow Rate Fraction of Inspir ed Oxygen Hydration adequate: Yes Nausea and vomiting: No Pain level: 2 Mental status: Baseline
== END 2020-11-22 09:10 | disposition home or self-care (01) ==
PROVIDERS: PCP Internal Medicine; Visit Provider Orthopaedic Surgery
PROC: (CPT 64721; principal; 2020-11-22 07:00)
PROC: (CPT 64718; 2020-11-22 07:00)
DX: G56.02 Carpal tunnel syndrome, left upper limb (principal); G56.22 Lesion of ulnar nerve, left upper limb; I10 Essential (primary) hypertension; N40.0 Benign prostatic hyperplasia without lower urinary tract symptoms
CPT/HCPCS: 64718; 64721; 96365; J0690; J3010; J3490; J7030

== ENCOUNTER 2020-11-22 14:29 | Emergency (ER) | payer OTHER, MEDICARE, SELFPAY ==
[2020-11-22 15:18] VITALS: BP 168/85; PULSE 79; RESP 19; TEMP 37; O2SAT 95
--- NOTE | 2020-11-22 15:19 | ED_ITS ---
HPI - Male Genitourinary General: Chief complaint: Urogenital-Male Stated complaint: CANT URINATE AFTER SURGERY Time Seen by Provider: 11/22/20 15:25 History of Present Illness: HPI Narrative: 85-year-old male postop unable to void. He had a left carpal tunnel release earlier today. He has not been able to void throughout the day return to the emergency room exquisitely uncomfortable. He denies any flank pain denies any fever sweats or chills Onset (ago): hour(s) Duration: constant Location: abdomen Severity: moderate Quality: aching Relieving factors: none Exacerbating factors: none Associated symptoms: Reports urinary retention; Deny discharge, dysuria, fevers/chills, hematuria, nausea, rash, swelling, urinary incontinence or vomiting Review of Systems Const: Denies: fever(s), chills, body aches, change in appetite, fatigue or malaise ENMT: Denies: throat pain, ear or mastoid pain, nasal discharge or nasal congestion Card: Denies: chest pain, edema, dyspnea on exertion or orthopnea Resp: Denies: dyspnea, productive cough or non-productive cough GI: Denies: nausea or vomiting : Denies: dysuria, urinary incontinence or hematuria Skin/Breast: Denies: rash or pruritus PFSH ED PFSH: Medical History BPH (benign prostatic hyperplasia) Nephrolithiasis Surgical History History of appendectomy History of hernia repair Social History Smoking and tobacco status: never smoked Alcohol intake: never Physical Exam Const: COMMON NORMALS: no acute distress GENERAL APPEARANCE: cooperative and comfortable ORIENTATION/CONSCIOUSNESS: Yes awake, Yes oriented to person, Yes oriented to place and Yes oriented to time HENMT: COMMON NORMALS: normocephalic, atraumatic and hearing grossly normal bilaterally HEAD & SCALP: normocephalic and atraumatic Resp: COMMON NORMALS: normal respiratory effort, No retractions, No use of accessory muscles and clear to auscultation bilaterally AUSCULTATION: clear to auscultation bilaterally Cardio: COMMON NORMALS: regular rate, regular rhythm and No murmurs present (Cardio) RATE: regular rate RHYTHM: regular rhythm GI: COMMON NORMALS: Soft to palpation and No hepatosplenomegaly present AUSCULTATION: Yes normoactive bowel sounds PALPATION: Yes Soft to palpation, No Tenderness to palpation present (GI), No Guarding due to palpation present (GI) and Yes No hepatosplenomegaly present Extremity: COMMON NORMALS: normal to inspection, capillary refill normal, no clubbing, cyanosis or edema, no calf tenderness and no pedal edema Neuro: SENSORIUM/ORIENTATION: Yes oriented to person, Yes oriented to place and Yes oriented to time Skin: COMMON NORMALS: no rashes or lesions noted GENERAL SKIN EXAM: no rashes or lesions noted Course 2 Vital Signs: Vital signs: Vital Signs Temperature 98.6 F 11/22/20 15:18 Pulse Rate 79 11/22/20 15:18 Respiratory Rate 15 11/22/20 15:45 Blood Pressure 168/85 11/22/20 15:18 Pulse Oximetry 95 11/22/20 15:18 MDM - Male MDM Narrative: Medical decision making narrative: Acute urinary retention secondary to recent anesthesia. Leg bag placed discharged home continue current medications Case management will make follow-up arrangements with [facility] Lab Data: Labs: Lab Results 11/22/20 Range/Units 15:30 Urine Color Yellow (Yellow) Urine Appearance Sl hazy (CLEAR) Urine pH 7 (5-7) Ur Specific Gravit y 1.005 (1.005-1.030) Urine Protein Neg (Negative) Urine Glucose (UA) Norm (Normal) Urine Ketones Negative (Negative) Urine Blood 3+ H (Negative) Urine Nitrate Negative (Negative) Urine Bilirubin Neg (Negative) Urine Urobilinogen Norm (Negative) mg/dL Ur Leukocyte Joceline ase Negative (Negative) Urine RBC 40-50 H (0-2) /hpf Urine WBC None (0-5) /hpf Ur Squamous Epith Cells None (0-5) /hpf Amorphous Sediment Not Reportable Urine Bacteria None (NONE) /hpf Discharge Plan Discharge Patient Disposition: Home Clinical Impression: Acute retention of urine Condition: Stable Prescriptions: No Action hydrocodone-acetaminophen 5-325 mg tablet 1 tab PO Q4H Qty: 15 RF: 0 losartan 50 mg Tablet 25 mg PO DAILY RF: 0 latanoprost 0.005 % drops 1 drp ophthalmic (eye) QPM RF: 0 calcium carbonate [Calcium 600] 600 mg calcium (1,500 mg) Tablet 600 mg PO DAILY RF: 0 ibuprofen 200 mg Tablet 200 mg PO BID RF: 0 omeprazole 20 mg Capsule,Delayed Release(Dr/Ec) 20 mg PO QAM RF: 0 fluticasone propionate [Flonase Allergy Relief] 50 mcg/actuation [place],Suspension 2 spray INTRANASAL DAILY PRN (Reason: unknown) RF: 0 finasteride [Proscar] 5 mg Tablet 5 mg PO DAILY RF: 0 Glucosamine Complex-MSM Capsule 1 cap PO DAILY RF: 0 omega 2-cxa-vcc-fish oil [Fish Oil] 1,000 mg (120 mg-180 mg) Capsule 1 cap PO DAILY RF: 0 calcitonin (salmon) 1 spray nasal DAILY RF: 0 tamsulosin 0.4 mg capsule 0.4 - 0.8 mg PO DAILY RF: 0 Discharge Orders: Discharge ED (Routine); Ordered 11/22/20 Ordered By: Steve Gomes Referrals: Wilber Dodge MD [Primary Care Provider] - Patient Instructions: Opioid Safety Activity Restrictions/Additional Instructions: Case management will call with a follow-up appointment with Dr. Dale Coding Level of Care Code ED Spaghetti Machine Operator for Chg Fwd Exam Detailed
[2020-11-22 15:23] VITALS: RESP 15
[2020-11-22 15:45] VITALS: RESP 15
[2020-11-22 16:12] LABS: Add Urine Microscopic? YES; Bilirubin Urine Neg (Negative); Blood Urine 3+ (Negative); Glucose Urine UA Norm (Normal); Ketones Urine Negative (Negative); Leukocyte Esterase Urine Negative (Negative); Nitrate Urine Negative (Negative); Protein Urine Neg (Negative); Specific Gravity, Urine 1.005 (1.005-1.030); Urine Appearance SL Hazy (CLEAR); Urine Color Yellow (Yellow); Urobilinogen Urine Norm (Negative); pH Urine 7 (5-7)
[2020-11-22 16:13] LABS: Add Urine Culture? Yes; RBC Urine 40-50 /hpf (0-2)
--- NOTE | 2020-11-23 09:14 | DCPLANNER ---
talent acquisition operations manager had message to schedule a follow up appointment for patient with Dr. Dale. talent acquisition operations manager called the office of Dr. Dale, spoke with Abhi, gave clinic patients information. talent acquisition operations manager was told that patients information would be printed and reviewed. Patient has [employer] insurance, heel caser sent patients information to Shira with [employer] [facility], so that the authorization process could be started.
--- NOTE | 2020-11-26 07:35 | DCPLANNER ---
Patient has a follow up appointment scheduled for Thursday, December 03, 2020 at 3;[address] Dale. Clinic will call patient with appointment information.
--- NOTE | 2020-12-07 14:29 | DCPLANNER ---
Patient had a follow up appointment scheduled for 12.03.[address] Dale - patient did attend appointment.
== END 2020-11-22 15:46 | disposition home or self-care (01) ==
PROVIDERS: Emergency Provider Family Medicine; PCP Internal Medicine
DX: R33.9 Retention of urine, unspecified (principal)
CPT/HCPCS: 51702; 81001; 87086; 99283

== ENCOUNTER 2021-02-21 16:26 | Inpatient (IN) | payer OTHER, MEDICARE, SELFPAY ==
[2021-02-21] VITALS (8 sets, daily range): BP systolic 120–165; BP diastolic 65–96; PULSE 90–118; RESP 16–24; TEMP 36.9; O2SAT 91–100
--- NOTE | 2021-02-21 18:19 | W.ED.ABDPA2 ---
HPI - Abdominal Pain General: Chief Complaint: Abdominal Pain Stated Complaint: NAUSEA, SEVERE ABD CRAMPS Time Seen by Provider: 02/21/21 18:16 History of Present Illness: HPI narrative: 85-year-old male patient comes in today with some mid abdominal pain that started this afternoon. Patient states that he had eaten some cereal and started feeling little nauseous this morning at about 11:00. Patient reports that he laid down and he awoken this afternoon around 4 with more significant discomfort and episode of loose stools. Patient continued to feel nauseous. Patient denies any history of bowel obstruction, has had kidney stones and appendicitis with removal. Patient appears well. Patient reports feeling better after emesis in the waiting room. Symptoms had just been for today. MD elicited complaint: abdominal pain Associated Symptoms: Reports change in stool character, diarrhea (Loose stools), nausea and vomiting (Once) Review of Systems General: Reports: 10 or more systems reviewed and unremarkable except in HPI and below GI: Reports: nausea, vomiting (Once), diarrhea (Loose stools) and change in stool character PFSH ED PFSH: Medical History BPH (benign prostatic hyperplasia) Nephrolithiasis Urinary retention Surgical History History of appendectomy History of hernia repair Family History Father , AT AGE 67 CAD (coronary artery disease) Mother , AT AGE 67 Cancer Social History Alcohol intake: never Marital status: Single Current occupational status: retired Physical Exam Const: COMMON NORMALS: no acute distress and patient oriented x3 GENERAL APPEARANCE: cooperative HENMT: COMMON NORMALS: normocephalic and Normal external nose present HEAD & SCALP: normal to inspection and normocephalic NOSE: Normal external nose present MOUTH: Normal oral and palatal mucosa present THROAT: posterior oropharynx normal Eye: GENERAL EYE: appearance normal, both eyes and all related structures Neck/C-Spine: COMMON NORMALS: full ROM Chest: COMMONS NORMALS: normal inspection of the chest Resp: COMMON NORMALS: normal respiratory effort EFFORT & INSPECTION: Yes able to speak in complete sentences Cardio: COMMON NORMALS: regular rate and regular rhythm RATE: regular rate RHYTHM: regular rhythm GI: COMMON NORMALS: Soft to palpation PALPATION: Yes Soft to palpation and Yes Tenderness to palpation present (GI) (Mild left lower quadrant tenderness) : COMMON NORMALS: Yes no CVA tenderness BLADDER/KIDNEY EXAM: Yes no CVA tenderness Back/Pelvis: COMMON NORMALS: no CVA tenderness and thoracic and lumbar spine normal to inspection Extremity: COMMON NORMALS: normal to inspection Neuro: COMMON NORMALS: patient oriented x3 and moves all extremities Psych: COMMON NORMALS: mental status grossly normal and cooperative Skin: COMMON NORMALS: no rashes or lesions noted GENERAL SKIN EXAM: no rashes or lesions noted Course ED course: 2019, discussed with Dr. Gonzalez regarding patient's abnormal CT scan showing small bowel obstruction. He recommended that patient be admitted, he recommended discussion with the general surgeon and admit to hospitalist services. Consultations: Consultation #1: Consulted Dr. Osborne, general surgeon, regarding abnormal CT with suggestion of a small bowel obstruction. He agreed to consult with hospitalist. Time: 20:28 Consultation #2: Consulted with Dr. Thao for admission to hospitalist services Time: 20:40 Vital Signs: Vital signs: Vital Signs Temperature 98.4 F 02/21/21 16:45 Pulse Rate 90 02/21/21 19:06 Respiratory Rate 16 02/21/21 19:06 Blood Pressure 120/65 02/21/21 19:06 Pulse Oximetry 97 02/21/21 19:06 MDM - Abdominal Pain MDM Narrative: Medical decision making narrative: Patient came in due to nausea and some abdominal discomfort starting this afternoon at 11:00. Patient reports worsening symptoms throughout the day. Patient did report report a loose stool this morning. Patient has a history of appendix removal but no other bowel surgeries. Patient reports no other episodes of small bowel obstruction. Respirations were even lungs were clear to auscultation. Abdomen was soft with some left lower quadrant abdominal tenderness. Bowel sounds are decreased. Skin was warm and dry. Differential diagnosis includes but not limited to gastroenteritis, ileus, small bowel obstruction. Laboratory values noted a white count of 13,000, white blood cells were noted in the urine, CMP was unremarkable, CT noted to small bowel obstruction. Reviewed this with Dr. Gonzalez he recommended discussion with general surgery, Dr. Osborne, and admission to the hospital. Dr. Osborne was consulted and agreed to plan. Dr. Thao was consulted for hospitalist services. Patient needs admission for further evaluation by surgery, treatment of pain, IV fluids, and monitoring. Lab Data: Labs: Lab Results 02/21/21 02/21/21 02/21/21 18:28 18:28 19:04 WBC 13.6 10^3/uL H 10 ^3/uL (4.0-10.0) RBC 5.13 10^6/uL 10^6 /uL (4.1-5.3) Hgb 14.5 g/dL g/dL (11.7-16.6) Hct 45.1 % % (42.0-52.0) MCV 87.9 fl fl (80-94) MCH 28.3 pg pg (28.0-34.0) MCHC 32.2 g/dL g/dL (30.0-36.0) RDW 14.2 % % (12.1-15.1) Plt Count 262 10^3/cmm 10^3 /cmm (130-400) MPV 10.7 fL H fL (7.4-10.4) Neut % (Auto) 90.5 % % Lymph % (Auto) 3.8 % % [place] % (Auto) 4.8 % % Eos % (Auto) 0.3 % % Baso % (Auto) 0.3 % % Neut # (Auto) 12.29 10^3/uL H 1 0^3/uL (1.8-7.7) Lymph # (Auto) 0.5 10^3/uL L 10^ 3/uL (0.8-4.8) [place] # (Auto) 0.7 10^3/uL 10^3/ uL (0.2-0.9) Eos # (Auto) 0.0 10^3/uL 10^3/ uL (0.0-0.8) Baso # (Auto) 0.0 10^3/uL 10^3/ uL (0.0-0.1) Nucleated RBC % (a uto) 0 % % Nucleated RBCs # 0.0 /100WBC /100W BC Sodium 137 mmol/L mmol/L (136-145) Potassium 4.4 mmol/L mmol/L (3.5-5.1) Chloride 97 mmol/L L mmol/ L (98-107) Carbon Dioxide 26 mmol/L mmol/L (22-29) Anion Gap 18.4 (5-19) BUN 19 mg/dL mg/dL (8-23) Creatinine 1.0 mg/dL mg/dL (0.7-1.2) GFR Calculation Not Reportable Glucose 137 mg/dL H mg/dL (65-115) Calculated Osmolal ity 288 mOsm/kg mOsm/ kg (285-295) Calcium 10.6 mg/dL H mg/d L (8.5-10.5) Total Bilirubin 0.6 mg/dL mg/dL (0.15-1.2) AST 26 U/L U/L (0-40) ALT 13 U/L U/L (0-41) Alkaline Phosphata se 144 IU/L H IU/L (40-130) Total Protein 9.7 g/dL H g/dL (6.6-8.7) Albumin 4.8 g/dL g/dL (3.5-5.2) Globulin 4.9 g/dL H g/dL (1.3-4.6) Lipase 18 U/L U/L (13-60) Urine Color Yellow (Yellow) Urine Appearance Clear (CLEAR) Urine pH 5 (5-7) Ur Specific Gravit y 1.020 (1.005-1.030) Urine Protein Neg (Negative) Urine Glucose (UA) Norm (Normal) Urine Ketones Negative (Negative) Urine Blood Neg (Negative) Urine Nitrate Negative (Negative) Urine Bilirubin Neg (Negative) Urine Urobilinogen Norm mg/dL mg/dL (Negative) Ur Leukocyte Joceline ase Trace H (Negative) Urine RBC Not Reportable Urine WBC 15-25 /hpf H /hpf (0-5) Ur Squamous Epith Cells 0-4 /hpf H /hpf (0-5) Amorphous Sediment Not Reportable Urine Bacteria 2+ /hpf H /hpf (NONE) Urine Mucus 1+ /hpf /hpf Discharge Plan Discharge Patient Disposition: Admitted As Inpatient Clinical Impression: SBO (small bowel obstruction) Condition: Stable Coding Level of Care Code ED Commercial Lines Account Manager for g Fwd Exam Comprehensive
--- NOTE | 2021-02-21 18:20 | CTR_ITS ---
PROCEDURE INFORMATION: Exam: CT Abdomen And Pelvis With Contrast Exam date and time: 02/21/2021 6:20 PM Age: 85 years old Clinical indication: Abdominal pain; Generalized; Prior surgery; Surgery type: Hernia, appy; Additional info: Diffuse abd pain, diarrhea, bloating TECHNIQUE: Imaging protocol: Computed tomography of the abdomen and pelvis with contrast. Radiation optimization: All CT scans at this facility use at least one of these dose optimization techniques: automated exposure control; mA and/or kV adjustment per patient size (includes targeted exams where dose is matched to clinical indication); or iterative reconstruction. Contrast material: VISI 320; Contrast volume: 95 ml; Contrast route: INTRAVENOUS (IV); COMPARISON: CT kidney stone [id number] 10/24/2019 5:31 AM RADIATION DOSE METRICS: Total DLP (mGy-cm): 689.15 FINDINGS: Lungs: Patchy bibasilar mixed interstitial and airspace infiltrates somewhat increased compared to prior exam. Liver: Hepatic steatosis. Several subcentimeter hepatic cysts. Gallbladder and bile ducts: Normal. No calcified stones. No ductal dilation. Pancreas: Normal. No ductal dilation. Spleen: Benign splenic granulomas. Adrenal glands: Normal. No mass. Kidneys and ureters: Bilateral punctate nonobstructing renal calyceal stones. Bilateral renal cysts, negative for follow-up advised. Stomach and bowel: Small bowel demonstrates mild dilation to 3.2 cm with fluid levels consistent with an obstruction with an equivocal transition point in the upper mid pelvis. Appendix: No evidence of appendicitis. Intraperitoneal space: Unremarkable. No free air. No significant fluid collection. Vasculature: Unremarkable. No abdominal aortic aneurysm. Lymph nodes: Unremarkable. No enlarged lymph nodes. Urinary bladder: Unremarkable as visualized. Reproductive: Prostate gland enlarged. Bones/joints: Unremarkable. No acute fracture. Soft tissues: Unremarkable. CT/CT abdomen pelvis w con* [id number] IMPRESSION: 1. Small bowel demonstrates mild dilation to 3.2 cm with fluid levels consistent with an obstruction with an equivocal transition point in the upper mid pelvis. 2. Patchy bibasilar mixed interstitial and airspace infiltrates somewhat increased compared to prior exam. 3. Hepatic steatosis. 4. Benign splenic granulomas. 5. Bilateral punctate nonobstructing renal calyceal stones. 6. Bilateral renal cysts, negative for follow-up advised. 7. Several subcentimeter hepatic cysts. 8. Prostate gland enlarged. Radiation Dose CTDIVOL = (mGy): DLP = 689.15 (mGy-cm)
[2021-02-21 18:37] LABS: Basophils % 0.3 %; Eosinophils % 0.3 %; Hematocrit 45.1 % (42.0-52.0); Hemoglobin 14.5 g/dL (11.7-16.6); Lymphocytes # 0.5 10^3/uL (0.8-4.8); Lymphocytes % 3.8 %; Mean Corpuscular HGB Conc 32.2 g/dL (30.0-36.0); Mean Corpuscular Hemoglobin 28.3 pg (28.0-34.0); Mean Corpuscular Volume 87.9 fl (80-94); Mean Platelet Volume 10.7 fL (7.4-10.4); Monocytes # 0.7 10^3/uL (0.2-0.9); Monocytes % 4.8 %; Neutrophils # 12.29 10^3/uL (1.8-7.7); Neutrophils % 90.5 %; Nucleated Red Blood Cells % 0 %; Platelet Count 262 10^3/cmm (130-400); Red Blood Count 5.13 10^6/uL (4.1-5.3); Red Cell Distribution Width 14.2 % (12.1-15.1); White Blood Count 13.6 10^3/uL (4.0-10.0)
[2021-02-21 19:14] LABS: Add Urine Microscopic? YES; Bilirubin Urine Neg (Negative); Blood Urine Neg (Negative); Glucose Urine UA Norm (Normal); Ketones Urine Negative (Negative); Leukocyte Esterase Urine Trace (Negative); Nitrate Urine Negative (Negative); Protein Urine Neg (Negative); Urine Appearance Clear (CLEAR); Urine Color Yellow (Yellow); Urobilinogen Urine Norm (Negative); pH Urine 5 (5-7)
[2021-02-21 19:21] LABS: Alanine Aminotransferase 13 U/L (0-41); Albumin Level 4.8 g/dL (3.5-5.2); Alkaline Phosphatase 144 IU/L (40-130); Anion Gap 18.4 (5-19); Aspartate Amino Transferase 26 U/L (0-40); Blood Urea Nitrogen 19 mg/dL (8-23); Calcium 10.6 mg/dL (8.5-10.5); Carbon Dioxide 26 mmol/L (22-29); Chloride 97 mmol/L (98-107); Globulin 4.9 g/dL (1.3-4.6); Glucose 137 mg/dL (65-115); Lipase 18 U/L (13-60); Osmolality Calculated 288 mOsm/kg (285-295); Potassium 4.4 mmol/L (3.5-5.1); Sodium 137 mmol/L (136-145); Total Bilirubin 0.6 mg/dL (0.15-1.2); Total Protein 9.7 g/dL (6.6-8.7)
[2021-02-21 19:21] LABS: Bacteria Urine 2+ /hpf; Mucus Urine 1+ /hpf; Squamous Epithelial Cell Urine 0-4 /hpf (0-5); WBC Urine 15-25 /hpf (0-5)
[2021-02-21 19:22] LABS: Add Urine Culture? Yes
[2021-02-21] MEDS: iodixanol 320 mg/mL 100mL Btl IV (19:32)
[2021-02-21] MEDS: LORazepam 2 mg/mL INJ 1 mL 0.5 MG IVP (20:45)
[2021-02-21] MEDS: sodium chloride 0.9% 500 ML 999 ML IV (20:51)
--- NOTE | 2021-02-21 20:58 | PM.HP ---
Providers/Chief Complaint Primary Care Provider: Eric Linda DO Chief Complaint: NAUSEA, SEVERE ABD CRAMPS History of Present Illness Yusuf Hayes is a 85 year old male with past medical history of prior appendectomy, kidney stones, BPH who is presenting to emergency room with complaints of abdominal cramps, nausea and vomiting which started earlier today. Pain is generalized moderate in intensity nonradiating. The patient experienced 2 episodes of vomiting. He nauseous. Reports chills. Reports 1 loose stool without any blood. Patient denies any similar episodes in the past. Denies any recent travel or suspicious food. On review of systems the patient reports chronic shortness of breath and chronic cough without any recent changes. No chest pain or palpitations. No fever Review of Systems General: Reports: 10 or more systems reviewed and unremarkable except in HPI and below Medications/Allergies Home Medications Medication Instructions Recorded Confirmed Last Taken Type Glucosamine Complex-MSM 1 cap PO DAILY 11/30/19 12/05/20 11/21/20 History calcitonin (salmon) 1 spray NASAL DAILY 11/30/19 12/05/20 11/21/20 History calcium carbonate [Calcium 600] 600 mg PO DAILY 11/30/19 12/05/20 11/21/20 History finasteride [Proscar] 5 mg PO DAILY 11/30/19 12/05/20 11/21/20 History fluticasone propionate [Flonase 2 spray INTRANASAL DAILY PRN 11/30/19 12/05/20 Unknown History Allergy Relief] ibuprofen 200 mg PO BID 11/30/19 12/05/20 11/21/20 History latanoprost 1 drp OPHTHALMIC (EYE) QPM 11/30/19 12/05/20 11/21/20 History losartan 25 mg PO DAILY 11/30/19 12/05/20 11/21/20 History omega 8-smc-zzi-fish oil [Fish Oil] 1 cap PO DAILY 11/30/19 12/05/20 11/21/20 History omeprazole 20 mg PO QAM 11/30/19 12/05/20 11/21/20 History tamsulosin 0.4 - 0.8 mg PO DAILY 11/30/19 12/05/20 11/21/20 History Allergies Allergy/AdvReac Type Severity Reaction Status Date / Time No Known Allergies Allergy Verified 12/05/20 13:40 PFSH Acute PFSH: Medical History BPH (benign prostatic hyperplasia) Nephrolithiasis Urinary retention Surgical History History of appendectomy History of hernia repair Family History Father , AT AGE 67 CAD (coronary artery disease) Mother , AT AGE 67 Cancer Social History Alcohol intake: never Marital status: Single Current occupational status: retired Vitals/I&O/Wt Last Vital Signs Temp 98.4 F 02/21/21 16:45 Pulse 90 02/21/21 19:06 Resp 16 02/21/21 19:06 BP 120/65 02/21/21 19:06 Pulse Ox 97 02/21/21 19:06 Weight last 48 hrs Weight 56.699 kg Physical Exam Narrative: EXAM NARRATIVE: The patient is awake alert and oriented. No acute distress. Mood and affect are appropriate. Responses are adequate. Chills are present. Skin is warm and dry. Moist mucous Eyes PERRL, extraocular muscle intact Neck supple. No JVD Lungs are clear bilaterally. No wheezes or crackles. Heart S1, S2, regular Abdomen soft, nontender, distended, no rebound, no guarding, bowel sounds are weak. Extremities no edema cyanosis or calf tenderness bilaterally Neurologic examination is nonfocal. Data : 02/21/21 18:28 02/21/21 18:28 Other Labs: Laboratory Results WBC 13.6 10^3/uL (4.0-10.0) H 02/21/21 18: RBC 5.13 10^6/uL (4.1-5.3) 02/21/21 18: Hgb 14.5 g/dL (11.7-16.6) 02/21/21 18: Hct 45.1 % (42.0-52.0) 02/21/21 18: MCV 87.9 fl (80-94) 02/21/21 18: MCH 28.3 pg (28.0-34.0) 02/21/21 18: MCHC 32.2 g/dL (30.0-36.0) 02/21/21 18: RDW 14.2 % (12.1-15.1) 02/21/21 18: Plt Count 262 10^3/cmm (130-400) 02/21/21 18: MPV 10.7 fL (7.4-10.4) H 02/21/21 18: Neut % (Auto) 90.5 % 02/21/21 18: Lymph % (Auto) 3.8 % 02/21/21 18: [place] % (Auto) 4.8 % 02/21/21 18: Eos % (Auto) 0.3 % 02/21/21 18: Baso % (Auto) 0.3 % 02/21/21 18: Neut # (Auto) 12.29 10^3/uL (1.8-7.7) H 02/21/21: Lymph # (Auto) 0.5 10^3/uL (0.8-4.8) L 02/21/21 18: [place] # (Auto) 0.7 10^3/uL (0.2-0.9) 02/21/21 18: Eos # (Auto) 0.0 10^3/uL (0.0-0.8) 02/21/21 18: Baso # (Auto) 0.0 10^3/uL (0.0-0.1) 02/21/21 18: Nucleated RBC % (auto) 0 % 02/21/21 18: Nucleated RBCs # 0.0 /100WBC 02/21/21 18: Sodium 137 mmol/L (136-145) 02/21/21 18: Potassium 4.4 mmol/L (3.5-5.1) 02/21/21 18: Chloride 97 mmol/L (98-107) L 02/21/21 18: Carbon Dioxide 26 mmol/L (22-29) 02/21/21 18: Anion Gap 18.4 (5-19) 02/21/21 18: BUN 19 mg/dL (8-23) 02/21/21 18: Creatinine 1.0 mg/dL (0.7-1.2) 02/21/21 18: GFR Calculation Not Reportable 02/21/21 18: Glucose 137 mg/dL (65-115) H 02/21/21 18: Calculated Osmolality 288 mOsm/kg (285-295) 02/21/21 18: Calcium 10.6 mg/dL (8.5-10.5) H 02/21/21 18: Total Bilirubin 0.6 mg/dL (0.15-1.2) 02/21/21 18: AST 26 U/L (0-40) 02/21/21 18: ALT 13 U/L (0-41) 02/21/21 18: Alkaline Phosphatase 144 IU/L (40-130) H 02/21/21 18: Total Protein 9.7 g/dL (6.6-8.7) H 02/21/21 18: Albumin 4.8 g/dL (3.5-5.2) 02/21/21 18: Globulin 4.9 g/dL (1.3-4.6) H 02/21/21 18: Lipase 18 U/L (13-60) 02/21/21 18:28 Urine Color Yellow (Yellow) 02/21/21 19: Urine Appearance Clear (CLEAR) 02/21/21 19: Urine pH 5 (5-7) 02/21/21 19:04 Ur Specific [place] 1.020 (1.005-1.030) 02/21/21 19:04 Urine Protein Neg (Negative) 02/21/21 19:04 Urine Glucose (UA) Norm (Normal) 02/21/21 19:04 Urine Ketones Negative (Negative) 02/21/21 19: Urine Blood Neg (Negative) 02/21/21 19:04 Urine Nitrate Negative (Negative) 02/21/21 19:04 Urine Bilirubin Neg (Negative) 02/21/21 19:04 Urine Urobilinogen Norm mg/dL (Negative) 02/21/21 19:04 Ur Leukocyte Esterase Trace (Negative) H 02/21/21 19:04 Urine RBC Not Reportable 02/21/21 19:04 Urine WBC 15-25 /hpf (0-5) H 02/21/21 19:04 Ur Squamous Epith Cells 0-4 /hpf (0-5) H 02/21/21 19:04 Amorphous Sediment Not Reportable 02/21/21 19:04 Urine Bacteria 2+ /hpf (NONE) H 02/21/21 19:04 Urine Mucus 1+ /hpf 02/21/21 19:04 Impressions Abdomen/Pelvis CT 02/21/21 18:20 IMPRESSION: 1. Small bowel demonstrates mild dilation to 3.2 cm with fluid levels consistent with an obstruction with an equivocal transition point in the upper mid pelvis. 2. Patchy bibasilar mixed interstitial and airspace infiltrates somewhat increased compared to prior exam. 3. Hepatic steatosis. 4. Benign splenic granulomas. 5. Bilateral punctate nonobstructing renal calyceal stones. 6. Bilateral renal cysts, negative for follow-up advised. 7. Several subcentimeter hepatic cysts. 8. Prostate gland enlarged. Radiation Dose CTDIVOL = (mGy): DLP = 689.15 (mGy-cm) A&P Assessment and plan (1) SBO (small bowel obstruction): Bowel rest, NG tube, IV fluids for hydration, will monitor and replace electrolytes as needed. Status: Acute (2) Dehydration: As above Status: Acute (3) Pneumonia: Will check chest x-ray, procalcitonin. We will start him on Levaquin. We will stop antibiotics if the infection is ruled out. Will monitor CBC. Status: Acute (4) Hypercalcemia: Probably due to dehydration. We will continue monitoring the calcium level. If persists additional testing might be necessary Status: Acute (5) Elevated blood protein: As above. Status: Acute Additional A&P Information 85-year-old male presenting with complaints of abdominal cramps, nausea and vomiting, one episode of loose stool, chills. CT shows possible small bowel obstruction. Dr. Osborne is consulted and will see the patient in the morning. The patient has associated dehydration, hypercalcemia, elevated protein level. Also reports cough and CT shows bilateral infiltrates. I wonder if the patient has pneumonia as well. CODE STATUS. The patient wants to be full code. DVT prophylaxis. Heparin. The plan of care was discussed with the patient. He verbalized understanding and agreement. Attestations Medical Necessity Statement*: That heBased on my assessment of patient's current condition will need to stay for more than 2 midnights to complete the plan of care. Coding Level of Care Code Acute Senior Loan Officer for [facility] Fwd Diagnoses SBO (small bowel obstruction) K56.609 Dehydration E86.0 Pneumonia J18.9 Hypercalcemia E83.52 Elevated blood protein R77.9
--- NOTE | 2021-02-21 21:06 | XRR_ITS ---
PROCEDURE INFORMATION: Exam: XR Chest Exam date and time: 02/21/2021 9:06 PM Age: 85 years old Clinical indication: Device placement; Ng tube; Additional info: Ng insertion TECHNIQUE: Imaging protocol: XR of the chest. Views: 1 view. COMPARISON: CT abdomen pelvis w con* [id number] 02/21/2021 7:29 PM FINDINGS: Tubes, catheters and devices: Enteric tube tip extending below the diaphragm inferiorly off the field of view. Lungs: Bibasilar atelectasis. Pleural spaces: Unremarkable. No pleural effusion. No pneumothorax. Heart/Mediastinum: Unremarkable. No cardiomegaly. Bones/joints: Unremarkable. XR/XR chest 1V portable [id number] IMPRESSION: 1. Bibasilar atelectasis. 2. Enteric tube tip extending below the diaphragm inferiorly off the field of view. Radiation Dose CTDIVOL = (mGy): DLP = (mGy-cm)
[2021-02-21 22:01] LABS: NT Pro B Type Natriuretic Pept 219 pg/mL (0-450); Procalcitonin 0.07 ng/mL (0-0.5)
[2021-02-21] MEDS: heparin 5,000 unit/mL INJ 1 mL 5000 UNIT SUBCUT (22:01)
[2021-02-21] MEDS: D5-NS 0.45% + KCL 20 mEq 20 MEQ/1,000 ML BAG 100 MEQ IV (22:01)
[2021-02-22] VITALS (14 sets, daily range): BP systolic 117–141; BP diastolic 51–84; PULSE 85–104; RESP 17–28; TEMP 36.4–37.3; O2SAT 92–96
--- NOTE | 2021-02-22 04:42 | PC.NURSE ---
Patient arrived from ED. On arrival patient noted to be orientx4, with intermittent confusion. Heart rate 90's-100's normal sinus, LSCTA, brisk cap refill. Abd noted to be slightly distended with tenderness to LUQ, LLQ, and mid epigastric. OGT to R nare to LIWS. Will continue to monitor.
[2021-02-22 05:01] LABS: Basophils % 0.2 %; Eosinophils % 0.2 %; Hematocrit 37.9 % (42.0-52.0); Hemoglobin 12.3 g/dL (11.7-16.6); Lymphocytes # 0.4 10^3/uL (0.8-4.8); Lymphocytes % 2.5 %; Mean Corpuscular HGB Conc 32.5 g/dL (30.0-36.0); Mean Corpuscular Hemoglobin 28.6 pg (28.0-34.0); Mean Corpuscular Volume 88.1 fl (80-94); Mean Platelet Volume 10.8 fL (7.4-10.4); Monocytes # 0.7 10^3/uL (0.2-0.9); Monocytes % 4.1 %; Neutrophils # 15.96 10^3/uL (1.8-7.7); Neutrophils % 92.6 %; Nucleated Red Blood Cells % 0 %; Platelet Count 215 10^3/cmm (130-400); Red Cell Distribution Width 14.1 % (12.1-15.1); White Blood Count 17.2 10^3/uL (4.0-10.0)
[2021-02-22 05:24] LABS: Alanine Aminotransferase 8 U/L (0-41); Albumin Level 3.6 g/dL (3.5-5.2); Alkaline Phosphatase 98 IU/L (40-130); Anion Gap 16.3 (5-19); Aspartate Amino Transferase 19 U/L (0-40); Blood Urea Nitrogen 20 mg/dL (8-23); Carbon Dioxide 25 mmol/L (22-29); Chloride 100 mmol/L (98-107); Globulin 3.4 g/dL (1.3-4.6); Glucose 133 mg/dL (65-115); Magnesium 1.6 mg/dL (1.7-2.3); Osmolality Calculated 289 mOsm/kg (285-295); Phosphorus 2.4 mg/dL (2.5-4.5); Potassium 4.3 mmol/L (3.5-5.1); Sodium 137 mmol/L (136-145); Total Bilirubin 0.6 mg/dL (0.15-1.2)
[2021-02-22] MEDS: D5-NS 0.45% + KCL 20 mEq 20 MEQ/1,000 ML BAG 100 MEQ IV ×2 (06:02→16:27)
--- NOTE | 2021-02-22 08:58 | XR_ITS ---
WS: [id number] Portable AP upright chest, 02/22/2021 Clinical Data: shortness of breath. Comparison: Portable chest, 02/21/2021 Findings: The nasogastric tube barely enters the fundus of the stomach. Minimal bibasilar atelectasis is noted. The heart is at the upper limits of normal. The aortic arch and descending thoracic aorta show calcification and tortuosity. Monitor leads are on the chest wall. XR/XR chest 1V portable [id number] Impression: 1. Nasogastric tube barely enters the fundus. 2. Cardiomegaly and atherosclerosis. 3. Minimal bibasilar atelectasis.
--- NOTE | 2021-02-22 08:59 | XR_ITS ---
WS: [id number] KUB, AP portable supine, 02/22/2021 Clinical Data: nausea Comparison: KUB, 09/05/2009. Findings: No abnormal intraabdominal masses or calcifications are seen. There is no dilatated small bowel or ev idence of obstruction. The nasogastric tube barely enters the stomach. There is air in the small bowel and colon. There is c ontrast material in the bladder from a CT scan. There is degenerative change with levoscoliosis of th e lumbar spine. There are monitor leads on the upper abdomen and chest wall. XR/XR KUB portable [id number] Impression: 1. Moderate generalized ileus. 2. Nasogastric tube enters the fundus of the stomach.
[2021-02-22 09:02] LABS: C Reactive Protein 36.2 mg/L (0.0-4.9)
[2021-02-22] MEDS: piperacillin-tazobactam 3.375 GM in sodium chloride 0.9% (plus) 50 ML IV ×2 (09:35→16:22)
[2021-02-22] MEDS: heparin 5,000 unit/mL INJ 1 mL 5000 UNIT SUBCUT ×2 (09:58→20:18)
--- NOTE | 2021-02-22 10:01 | PC.CHAP ---
Pastoral Care Encounter/Spiritual Assessment Type of Contact [] Declined gas appliance servicer visit [] Patient/Family/Request visit [] Outpatient visit [] Follow-up visit [] Physician referral [] Code/Alert [x] Routine visit [] Staff referral [] Actively dying [x] Patient sleeping [] Family support [] [] Out of room [] Palliative care [] [] Receiving care in room [] Pre-surgical visit [] Trauma [] Long length of stay [x] ICU visit [] Other: Relational/Emotional Strength [] Patient feels connected with others/family/visitors/staff [] Distress [] Loneliness/isolation [] Abandonment Spirituality of Patient [] Person of Jeri [] Attends Adventism of their Jeri [] Believes in Prayer [] Reads Bible or Mosque materials [] There are Spiritual issues to be addressed Certified Scrub Tech Interventions [x] Prayer [] Active listening [] Non-anxious presence [] Spiritual/emotional support [] Crisis/trauma care [] Spiritual counseling [] Bereavement support [] Provided bereavement packet [] Provided Bible/devotional materials [] Provided toy/stuffed animal, coloring book to patient or family member [] Provided Communion [] Anointing/Hart [] Salvation [x] Completed spiritual assessment [] Other: Impact on Illness or Injury [] Angry [] Fearful [] Anxious [] Often cries [] Exhaustion [] Unable to work [] Unable to attend episcopal [] Unable to walk/stand [] Unable to read [] Unable to drive [] Unable to eat/drink [] Unable to sleep [] Unable to be with family [] Patient intubated [] Other: Summary Time spent with patient
--- NOTE | 2021-02-22 10:53 | PC.NURSE ---
Called report to Ela MOREIRA.
--- NOTE | 2021-02-22 11:50 | PC.NURSE ---
Transferred patient to room 262 via wheelchair, clothes, glasses and cell phone with patient. Ela RN at bedside gave updated report.
--- NOTE | 2021-02-22 13:50 | P.CONIM_ITS ---
Providers/Reason For Consult Consulting Physician/Specialty*: General Surgery Dr. Osborne Reason for Consult*: sbo Attending Physician: Jeffrey Briceño MD Primary Care Provider: Eric Linda DO History of Present Illness History of Present Illness Yusuf Hayes is a 85 year old male Review of Systems General: Reports: 10 or more systems reviewed and unremarkable except in HPI and below Meds/Allergies Home Medications and Allergies Home Medications Medication Instructions Recorded Confirmed Last Taken Type Glucosamine Complex-MSM 1 cap PO DAILY@12 11/30/19 02/22/21 11/21/20 History calcium carbonate [Calcium 600] 600 mg PO DAILY 11/30/19 02/22/21 11/21/20 History finasteride [Proscar] 5 mg PO BEDTIME 11/30/19 02/22/21 11/21/20 History fluticasone propionate [Flonase 2 spray INTRANASAL DAILY PRN 11/30/19 02/22/21 Unknown History Allergy Relief] ibuprofen 200 mg PO BID@11/30/19 02/22/21 11/21/20 History latanoprost 1 drp OPHTHALMIC (EYE) BEDTIME 11/30/19 02/22/21 11/21/20 History losartan 25 mg PO QAM 11/30/19 02/22/21 11/21/20 History omega 4-jox-xwn-fish oil [Fish Oil] 1 cap PO DAILY 11/30/19 02/22/21 11/21/20 History omeprazole 20 mg PO DAILY@12 11/30/19 02/22/21 11/21/20 History tamsulosin 0.8 mg PO BEDTIME 11/30/19 02/22/21 11/21/20 History calcitonin (salmon) 1 spray INTRANASAL (ALT) DAILY 02/22/21 02/22/21 02/21/21 History right nare multivitamin 1 tab PO DAILY 02/22/21 02/22/21 Unknown History Allergies Allergy/AdvReac Type Severity Reaction Status Date / Time No Known Allergies Allergy Verified 02/22/21 10:21 Current Medications Current Medications Generic Name Dose Route Start Last Admin Trade Name Freq PRN Reason Stop Dose Admin Heparin Sodium (Porcine) 5,000 unit 02/22/21 10:00 02/22/21 09:58 Heparin 5,000 Unit/Ml Inj 1 Ml SUBCUT 5,000 unit Q12H JUICE Administration Potassium Chloride/Dextrose/Sod Cl 20 meq in 1,000 mls @ 100 mls/hr 02/21/21 20:45 02/22/21 06:02 D5-Ns 0.45% + Kcl 20 Meq IV 100 mls/hr .Q10H JUICE Administration Piperacillin Sod/Tazobactam 50 mls @ 12.5 mls/hr 02/22/21 09:00 02/22/21 09:35 Sod 3.375 gm/ Sodium Chloride IV 12.5 mls/hr Q8H JUICE Administration PFSH Acute PFSH: Medical History BPH (benign prostatic hyperplasia) Nephrolithiasis Urinary retention Surgical History History of appendectomy History of hernia repair Family History Father , AT AGE 67 CAD (coronary artery disease) Mother , AT AGE 67 Cancer Social History Alcohol intake: never Marital status: Single Current occupational status: retired Vitals/I&O/Wt Last Vital Signs Temp 99.1 F 02/22/21 08:00 Pulse 85 02/22/21 10:00 Resp 20 H 02/22/21 10:00 BP 141/76 02/22/21 10:00 Pulse Ox 95 02/22/21 10:00 02/21/21 02/22/21 02/22/21 22:59 06:59 14:59 Intake Total 500 / 1301.667 801.667 / 1301.667 Output Total 300 / 300 400 / 400 Balance 500 / 1001.667 501.667 / 1001.667 -400 / -400 Weight last 48 hrs Weight 125 lb Physical Exam Narrative: EXAM NARRATIVE: HEENT: Normocephalic Eye: Sclera /conjunctiva normal Abdomen: Soft to palpation, non tender, non distended, well healed laparotomy scar Neurological: Oriented to place person and time Skin: Intact, no lesions appreciated on gross exam A&P Assessment and plan (1) SBO (small bowel obstruction): 85 year old male who has had a prior appendectomy and epsidoes of constipation who presents with abdominal pain, nausea and vomiting. There was no evidence of peritonitis and exam is benign. CT abdomen/pelvis shows distended SB measuring 3.2cm with air fluid levels suggestive of obstruction clamp NG tube start clear liquid diet 1 bottle mag citrate Abdominal series in the AM Discussed with the patient that if there is no improvement in the next 48 -72 hours , then we might have to consider surgical options. Status: Acute Consult Attestations Medical Necessity Statement: As per attending physician Coding Level of Care Code Acute President [employer] for [facility] Fwd Diagnoses SBO (small bowel obstruction) K56.609
[2021-02-22] MEDS: magnesium citrate Btl 296 mL 150 ML PO (14:53)
--- NOTE | 2021-02-22 18:12 | PM.PN ---
Vitals/I&O/Wt Last Vital Signs Temp 98.0 F 02/22/21 15:43 Pulse 87 02/22/21 15:43 Resp 18 02/22/21 15:43 BP 132/84 02/22/21 15:43 Pulse Ox 94 02/22/21 15:43 02/22/21 02/22/21 02/22/21 06:59 14:59 22:59 Intake Total 801.667 / 1301.667 410 / 410 1000 / 1410 Output Total 300 / 300 400 / 400 Balance 501.667 / 1001.667 10 1000 / 1010 Weight last 48 hrs Weight 56.699 kg Physical Exam Narrative: EXAM NARRATIVE: ng TUBE IN PLACE Const: COMMON NORMALS: no acute distress and patient oriented x3 Resp: COMMON NORMALS: normal respiratory effort, No retractions, No use of accessory muscles and clear to auscultation bilaterally AUSCULTATION: clear to auscultation bilaterally Cardio: COMMON NORMALS: regular rate, regular rhythm, S1 normal heart sound present and S2 normal heart sound present RATE: regular rate RHYTHM: regular rhythm HEART SOUNDS: S1 normal heart sound present and S2 normal heart sound present GI: COMMON NORMALS: Normal to inspection, nondistended, normoactive bowel sounds present AUSCULTATION: Yes Hypoactive bowel sounds present PALPATION: Yes Tenderness to palpation present (GI) (DIFFUSE TENDERNESS) Extremity: COMMON NORMALS: no pedal edema Neuro: COMMON NORMALS: patient oriented x3 Psych: COMMON NORMALS: mental status grossly normal Data : 02/22/21 04:30 02/22/21 04:30 A&P Assessment and plan (1) SBO (small bowel obstruction): Bowel rest, NG tube, IV fluids for hydration, will monitor and replace electrolytes as needed. surgery is on consult Status: Acute (2) Dehydration: As above Status: Acute (3) Pneumonia: -aspiration pneumonia -continue zosyn -aspiration precautions Status: Acute (4) Hypercalcemia: Probably due to dehydration. Status: Acute (5) Elevated blood protein: As above. Status: Acute Additional A&P Information 85-year-old male presenting with complaints of abdominal cramps, nausea and vomiting, one episode of loose stool, chills. CT shows possible small bowel obstruction. Dr. Osborne is consulted and will see the patient in the morning. The patient has associated dehydration, hypercalcemia, elevated protein level. Also reports cough and CT shows bilateral infiltrates. I wonder if the patient has pneumonia as well. CODE STATUS. The patient wants to be full code. DVT prophylaxis. Heparin. The plan of care was discussed with the patient. He verbalized understanding and agreement. Attestations Medical Necessity Statement*: patient requires hospitalization for SBO Coding Level of Care Code Acute Gravity Meter Operator for [facility] Fw Diagnoses SBO (small bowel obstruction) K56.609 Dehydration E86.0 Pneumonia J18.9 Hypercalcemia E83.52 Elevated blood protein R77.9
[2021-02-22] MEDS: finasteride 5 mg Tablet PO (20:18)
[2021-02-23] VITALS: BP 102/58; PULSE 76; RESP 18; TEMP 36.6; O2SAT 96
[2021-02-23] MEDS: D5-NS 0.45% + KCL 20 mEq 20 MEQ/1,000 ML BAG 100 MEQ IV (00:16)
[2021-02-23] MEDS: piperacillin-tazobactam 3.375 GM in sodium chloride 0.9% (plus) 50 ML IV ×2 (00:17→09:13)
[2021-02-23 04:00] VITALS: BP 104/63; PULSE 71; RESP 18; TEMP 36.5; O2SAT 93
[2021-02-23 05:34] LABS: Basophils % 0.2 %; Eosinophils # 0.1 10^3/uL (0.0-0.8); Eosinophils % 0.5 %; Hematocrit 32.6 % (42.0-52.0); Hemoglobin 10.4 g/dL (11.7-16.6); Lymphocytes # 0.9 10^3/uL (0.8-4.8); Lymphocytes % 7.2 %; Mean Corpuscular HGB Conc 31.9 g/dL (30.0-36.0); Mean Corpuscular Hemoglobin 28.1 pg (28.0-34.0); Mean Corpuscular Volume 88.1 fl (80-94); Mean Platelet Volume 10.9 fL (7.4-10.4); Monocytes # 0.7 10^3/uL (0.2-0.9); Monocytes % 5.2 %; Neutrophils # 11.22 10^3/uL (1.8-7.7); Neutrophils % 86.5 %; Nucleated Red Blood Cells % 0 %; Platelet Count 187 10^3/cmm (130-400); Red Cell Distribution Width 14.2 % (12.1-15.1)
--- NOTE | 2021-02-23 06:00 | XRR_ITS ---
PROCEDURE INFORMATION: Exam: XR Abdomen Exam date and time: 02/23/2021 6:00 AM Age: 85 years old Clinical indication: Abdominal pain; Additional info: Sbo TECHNIQUE: Imaging protocol: XR of the abdomen. Views: 2 Views. Upright and supine views. Total images: 2 COMPARISON: CR XR KUB portable [id number] 02/22/2021 8:59 AM FINDINGS: Gastrointestinal tract: Bowel gas pattern is nondistended and nonobstructive. Intraperitoneal space: Normal. No free air. Vasculature: Atherosclerosis is evident. Bones/joints: Spinal degenerative changes are evident. This finding is stable when compared to the prior exam. Mild degenerative changes of the right hip. XR/XR abdomen min 2V [id number] IMPRESSION: Normal bowel gas pattern Radiation Dose CTDIVOL = (mGy): DLP = (mGy-cm)
[2021-02-23 06:05] LABS: Alanine Aminotransferase 9 U/L (0-41); Albumin Level 3.1 g/dL (3.5-5.2); Alkaline Phosphatase 136 IU/L (40-130); Anion Gap 13.2 (5-19); Aspartate Amino Transferase 17 U/L (0-40); Blood Urea Nitrogen 18 mg/dL (8-23); C Reactive Protein 166.5 mg/L (0.0-4.9); Calcium 8.4 mg/dL (8.5-10.5); Carbon Dioxide 25 mmol/L (22-29); Chloride 100 mmol/L (98-107); Globulin 3.4 g/dL (1.3-4.6); Glucose 106 mg/dL (65-115); Magnesium 1.9 mg/dL (1.7-2.3); Osmolality Calculated 280 mOsm/kg (285-295); Phosphorus 1.7 mg/dL (2.5-4.5); Potassium 4.2 mmol/L (3.5-5.1); Sodium 134 mmol/L (136-145); Total Bilirubin 0.9 mg/dL (0.15-1.2); Total Protein 6.5 g/dL (6.6-8.7)
[2021-02-23 08:00] VITALS: BP 110/71; PULSE 84; RESP 16; TEMP 36.8; O2SAT 94
[2021-02-23] MEDS: heparin 5,000 unit/mL INJ 1 mL 5000 UNIT SUBCUT (09:13)
[2021-02-23] MEDS: phosphorus 250 mg Tablet PO (09:13)
[2021-02-23 11:25] VITALS: BP 131/62; PULSE 73; RESP 16; TEMP 36.8; O2SAT 96
--- NOTE | 2021-02-23 12:32 | PM.DCS ---
Discharge Providers Date of Admission: 02/21/21 20:56 Date of Discharge: February 23, 2021 Attending Provider at Admission: Felix Thao Attending Provider at Discharge: Jeffrey Briceño MD Primary Care Provider: Eric Linda DO Diagnoses at Discharge Discharge Diagnosis (1) SBO (small bowel obstruction): Status: Acute (2) Dehydration: Status: Acute (3) Pneumonia: Status: Acute (4) Hypercalcemia: Status: Acute (5) Elevated blood protein: Status: Acute Reason for Visit Reason for Visit: NAUSEA, SEVERE ABD CRAMPS Hospital Course Hospital Course This is a 85-year-old male with a past medical history of BPH, nephrolithiasis, history of appendectomy, hernia repair, who presents [facility] due to abdominal pain, nausea, vomiting Patient was admitted to [facility] for small bowel obstruction, likely secondary to adhesions, CT scan abdomen pelvis showed 1. Small bowel demonstrates mild dilation to 3.2 cm with fluid levels consistent with an obstruction with an equivocal transition point in the upper mid pelvis. General surgery was consulted, patient was medically managed, n.p.o., IV fluids, NG tube, and clinically monitored. Patient had slow clinical progress, had NG tube output, he removed his NG tube on his own, but continued to have clinical improvement, remained afebrile, abdominal pain improved, was transitioned to full liquid diet, had a good bowel movement the morning of 02/23/2021, passing gas,good bowel sounds, minimal abdominal pain. He will be discharged on full liquid diet, instructions to advance diet as tolerated, MiraLAX bowel regimen for the next 7 days, follow-up with primary care provider 1 week. Patient had evidence of aspiration pneumonia, likely secondary to nausea and vomiting, discharged on 7 days of Augmentin. Patient was advised if he had to fevers, worsening abdominal pain, decrease in stooling go to the emergency room. Physical Exam Const: COMMON NORMALS: no acute distress and patient oriented x3 Resp: COMMON NORMALS: normal respiratory effort, No retractions, No use of accessory muscles and clear to auscultation bilaterally AUSCULTATION: clear to auscultation bilaterally Cardio: COMMON NORMALS: regular rate, regular rhythm, S1 normal heart sound present and S2 normal heart sound present RATE: regular rate RHYTHM: regular rhythm HEART SOUNDS: S1 normal heart sound present and S2 normal heart sound present GI: COMMON NORMALS: Normal to inspection, nondistended, normoactive bowel sounds present, Soft to palpation and non-tender PALPATION: Yes Soft to palpation Extremity: COMMON NORMALS: no pedal edema Neuro: COMMON NORMALS: patient oriented x3 Psych: COMMON NORMALS: mental status grossly normal Discharge Data Data Completed and Pending: Completed Studies During Hospitalization Category Date Time Status CT abdomen pelvis w con* [id number] Urge nt Cat Scan 02/21/21 18:20 Completed CXRP [XR chest 1V portable [id number]] R outine Exams 02/22/21 08:58 Completed XR KUB portable 7 [id number] Routine Exams 02/22/21 08:59 Completed XR abdomen min 2V [id number] Routine Exams 02/23/21 06:00 Completed XR chest 1V chaitanya ble [id number] Stat Exams 02/21/21 21:06 Completed Pending at discharge Category Date Time Status C Reactive Protei n AM LABS Lab 02/24/21 04:00 Ordered C Reactive Protei n AM LABS Lab 02/25/21 04:00 Ordered Complete Blood Co unt w/Auto AM LABS Lab 02/24/21 04:00 Ordered Complete Blood Co unt w/Auto AM LABS Lab 02/25/21 04:00 Ordered Comprehensive Met abolic Panel AM LA BS Lab 02/24/21 04:00 Ordered Comprehensive Met abolic Panel AM LA BS Lab 02/25/21 04:00 Ordered Magnesium AM LABS Lab 02/24/21 04:00 Ordered Magnesium AM LABS Lab 02/25/21 04:00 Ordered Phosphorus AM LAB S Lab 02/24/21 04:00 Ordered Phosphorus AM LAB S Lab 02/25/21 04:00 Ordered Sputum Culture an d Gram Stain Stat Lab 02/22/21 08:33 Uncollected Labs from last 24 hours 02/23/21 02/23/21 04:58 04:58 WBC 13.0 H RBC 3.70 L Hgb 10.4 L Hct 32.6 L MCV 88.1 MCH 28.1 MCHC 31.9 RDW 14.2 Plt Count 187 MPV 10.9 H Neut % (Auto) 86.5 Lymph % (Auto) 7.2 Jessamine % (Auto) 5.2 Eos % (Auto) 0.5 Baso % (Auto) 0.2 Neut # (Auto) 11.22 H Lymph # (Auto) 0.9 Jessamine # (Auto) 0.7 Eos # (Auto) 0.1 Baso # (Auto) 0.0 Nucleated RBC % (a uto) 0 Nucleated RBCs # 0.0 Sodium 134 L Potassium 4.2 Chloride 100 Carbon Dioxide 25 Anion Gap 13.2 BUN 18 Creatinine 1.2 GFR Calculation Not Reportable Glucose 106 Calculated Osmolal ity 280 L Calcium 8.4 L Phosphorus 1.7 L Magnesium 1.9 Total Bilirubin 0.9 AST 17 ALT 9 Alkaline Phosphata se 136 H C-Reactive Protein 166.5 H Total Protein 6.5 L Albumin 3.1 L Globulin 3.4 Vitals: Last Vital Signs Temp 98.2 F 02/23/21 11:25 Pulse 73 02/23/21 11:25 Resp 16 02/23/21 11:25 BP 131/62 02/23/21 11:25 Pulse Ox 96 02/23/21 11:25 Discharge Plan Discharge Patient Disposition: Home Condition: Stable Prescriptions: New Miralax 17 gram/dose powder 17 g PO DAILY 30 Days Qty: 510 RF: 0 Augmentin 875-125 mg tablet 1 tab PO BID 7 Days Qty: 14 RF: 0 Continued losartan 50 mg Tablet 25 mg PO QAM RF: 0 latanoprost 0.005 % drops 1 drp ophthalmic (eye) BEDTIME RF: 0 calcium carbonate [Calcium 600] 600 mg calcium (1,500 mg) Tablet 600 mg PO DAILY RF: 0 ibuprofen 200 mg Tablet 200 mg PO BID@12,22 RF: 0 omeprazole 20 mg Capsule,Delayed Release(Dr/Ec) 20 mg PO DAILY@12 RF: 0 fluticasone propionate [Flonase Allergy Relief] 50 mcg/actuation [place],Suspension 2 spray INTRANASAL DAILY PRN (Reason: Allergy Symptoms) RF: 0 finasteride [Proscar] 5 mg Tablet 5 mg PO BEDTIME RF: 0 Glucosamine Complex-MSM Capsule 1 cap PO DAILY@12 RF: 0 omega 7-gut-twq-fish oil [Fish Oil] 1,000 mg (120 mg-180 mg) Capsule 1 cap PO DAILY RF: 0 tamsulosin 0.4 mg capsule 0.8 mg PO BEDTIME RF: 0 multivitamin Tablet 1 tab PO DAILY RF: 0 calcitonin (salmon) 200 unit/actuation [place],Non-Aerosol 1 spray INTRANASAL (ALT) DAILY RF: 0 Discharge Orders: Discharge Order (Routine); Ordered 02/23/21 Ordered By: Jeffrey Briceño Referrals: Eric Linda, [Primary Care Provider] - (Please follow up with primary care provider within two weeks.) Discharge Diet: Full LIquid Discharge Activity: Resume usual activity Patient Instructions: Amoxicillin/Clavulanate Potassium (By mouth), Polyethylene Glycol 3350 (By mouth), Bowel Obstruction (GEN), Opioid Safety Activity Restrictions/Additional Instructions: -If you have recurrent abdominal pain please go to the emergency room -Follow-up with primary care provider in 1 week Discharge Attestations Time Spent in Discharge Care*: less than 30 min Quality Metrics Clinical Quality Measures During this hospital stay, did patient experience: None Coding Level of Care Code Acute [facility] note Diagnoses SBO (small bowel obstruction) K56.609 Dehydration E86.0 Pneumonia J18.9 Hypercalcemia E83.52 Elevated blood protein R77.9
--- NOTE | 2021-02-23 13:50 | PM.PN ---
Subjective Subjective: Interval history: Patient has been doing well denies any significant pain, tolerating full liquid diet, had BM Vitals/I&O/Wt Last Vital Signs Temp 98.2 F 02/23/21 11:25 Pulse 73 02/23/21 11:25 Resp 16 02/23/21 11:25 BP 131/62 02/23/21 11:25 Pulse Ox 96 02/23/21 11:25 02/22/21 02/23/21 02/23/21 22:59 06:59 14:59 Intake Total 1910 / 3351.667 1031.667 / 3351.667 1506.667 / 1506.667 Output Total 750 / 1600 450 / 1600 Balance 1160 / 1751.667 581.667 / 6805.976 1332.667 / 1506.667 Weight last 48 hrs Weight 125 lb Physical Exam Narrative: EXAM NARRATIVE: Abdomen: Soft, nontender, nondistended Data : 02/23/21 04:58 02/23/21 04:58 Micro: Microbiology 02/21/21 19:04 Urine Culture - Final Urine,Clean Catch A&P Assessment and plan (1) SBO (small bowel obstruction): 85 year old male who has had a prior appendectomy and epsidoes of constipation who presents with abdominal pain, nausea and vomiting. There was no evidence of peritonitis and exam is benign. CT abdomen/pelvis shows distended SB measuring 3.2cm with air fluid levels suggestive of obstruction Patient pulled NG tube and has been tolerating a full liquid diet and had bowel movements. Abdominal exam is benign DC home on bowel regimen Status: Acute Attestations Medical Necessity Statement*: As per primary Coding Level of Care Code Acute Medical Unit Secretary for [facility] Fwd Diagnoses SBO (small bowel obstruction) K56.609
--- NOTE | 2021-02-23 13:59 | PC.NURSE ---
Patient's left arm appears swollen and purple where IV was located. Patient reports he has had hematomas in the past and it is soft to touch and patient denies pain.
== END 2021-02-23 14:30 | disposition home or self-care (01) | DRG 388 ==
LOC: ER 20:32 → ICU 21:35 → MEDSURG 02-22 11:47
PROVIDERS: Admitting Provider Internal Medicine; Emergency Provider Nurse Practitioner Family; PCP Emergency Medicine Emergency Medical Services; Visit Provider Family Medicine
DX: K56.50 Intestinal adhesions [bands], unspecified as to partial versus complete obstruction (principal); J69.0 Pneumonitis due to inhalation of food and vomit; N40.1 Benign prostatic hyperplasia with lower urinary tract symptoms; R33.8 Other retention of urine; Z87.442 Personal history of urinary calculi; E86.0 Dehydration; E83.52 Hypercalcemia; K59.09 Other constipation
CPT/HCPCS: 36415; 71045; 74018; 74019; 74177; 80053; 81001; 83690; 83735; 83880; 84100; 84145; 85025; 86140; 87086; 96365; 96366; 96372; 99285; J1644; J2060; J2543; J7040; Q9967

== ENCOUNTER → 2021-08-07 08:54 | Outpatient (BNVA) | payer OTHER, SELFPAY | PROVIDERS: PCP Emergency Medicine Emergency Medical Services; Visit Provider Internal Medicine Critical Care Medicine | DX: R05.3 Chronic cough (principal); R06.02 Shortness of breath | CPT/HCPCS: 71046; 99204 ==

== ENCOUNTER 2021-08-26 12:38 | Outpatient (CLI) | payer OTHER, SELFPAY ==
--- NOTE | 2021-08-26 12:45 | USCV_ITS ---
Yusuf Hayes Age: 86 Gender: M : 1935 Exam Date: 08/26/2021 13:02 Ordering Phys: Snow Hardwick MD Technologist: Helio Fonseca Exam Location: [facility] – [place] Indication: sob BP: 160 / 90 HR: 81 Rhythm: Sinus Technical Quality: MEASUREMENTS (Male / Female) Normal Values 2D ECHO LV Diastolic Diameter PLAX 3.7 cm 4.2 - 5.9 / 3.9 - 5.3 cm LV Systolic Diameter PLAX 2.2 cm IVS Diastolic Thickness 1.1 cm 0.6 - 1.0 / 0.6 - 0.9 cm IVS Systolic Thickness 1.0 cm LVPW Diastolic Thickness 1.1 cm 0.6 - 1.0 / 0.6 - 0.9 cm LVPW Systolic Thickness 1.3 cm LVOT Diameter 2.0 cm LV Ejection Fraction 2D Teich 70.9 % LV Ejection Fraction MOD 2C 64.8 % LV Ejection Fraction 2C AL 64.7 % LA Diameter 3.2 cm LA Width 3.0 cm LA Height 3.4 cm RA Width 3.1 cm RA Height 3.5 cm Aorta at Sinotubular Diameter 2.7 cm IVC Diameter 1.6 cm M-MODE Aortic Annulus Diameter 3.5 cm MV E Point Septal Separation 0.4 cm DOPPLER AV Peak Velocity 113.0 cm/s LVOT Peak Velocity 104.0 cm/s AV Area Cont Eq vti 3.5 cm squared AV Area Cont Eq pk 2.9 cm squared MV Peak Velocity 106.0 cm/s MV Area PHT 3.7 cm squared Mitral E to A Ratio 0.7 MV E' Velocity 31.5 cm/s Mitral E to MV E' Ratio 6.6 Mitral E to LV E' Lateral Ratio 7.7 Mitral E to LV E' Septal Ratio 5.8 TR Peak Velocity 277.5 cm/s TR Peak Gradient 30.8 mmHg TR Mean Velocity 238.3 cm/s TR Mean Gradient 24.9 mmHg TR Velocity Time Integral 20.5 cm Right Atrial Pressure 3.0 mmHg Pulmonary Artery Systolic Pressu 33.8 mmHg RV Acceleration Time 0.1 s RV Ejection Time 0.3 s RV AcT/ET 0.3 FINDINGS Left Ventricle Normal left ventricular size, systolic function and wall thickness, with no regional wall motion abnormalities. Normal left ventricular wall thickness. Normal diastolic filling pattern. Right Ventricle The right ventricle is normal in size and function. Right Atrium The right atrium is normal in size. Left Atrium The left atrium is normal in size. Mitral Valve Structurally normal mitral valve without significant stenosis or prolapse. There is no mitral regurgitation. Aortic Valve Structurally normal aortic valve without significant sclerosis or stenosis. There is no aortic regurgitation. Tricuspid Valve Structurally normal tricuspid valve without significant stenosis. Mild Tricuspid regurgitation. RVSP is 30-35mmHg Pulmonic Valve Structurally normal pulmonic valve without significant stenosis. There is no pulmonic regurgitation. Pericardium Normal pericardium without effusion. Aorta Ascending aorta is dilated CONCLUSIONS LV systolic function is normal with EF of 55-60% Grade 1 diastolic dysfunction Mild mitral regurgitation Trace aortic regurgitation Mild tricuspid regurgitation No comparison studies are available Billy Jason MD (Electronically Signed) Final Date: 01 Sep 2021 12:13 S
== END 2021-08-26 12:39 | disposition home or self-care (01) ==
LOC: RAD 12:38
PROVIDERS: PCP Emergency Medicine Emergency Medical Services; Visit Provider Internal Medicine Critical Care Medicine
DX: R06.02 Shortness of breath (principal); I34.0 Nonrheumatic mitral (valve) insufficiency; I07.1 Rheumatic tricuspid insufficiency
CPT/HCPCS: 93306

== ENCOUNTER → 2021-09-18 08:16 | Outpatient (BNVA) | payer OTHER, SELFPAY | PROVIDERS: PCP Emergency Medicine Emergency Medical Services; Visit Provider Internal Medicine Critical Care Medicine | DX: R05.9 Cough, unspecified (principal); R06.02 Shortness of breath | CPT/HCPCS: 99213; 99214 ==

== ENCOUNTER 2021-09-18 09:04 | Outpatient (CLI) | payer OTHER, SELFPAY ==
--- NOTE | 2021-09-18 10:41 | PFTS_ITS ---
Date of Study:09/18/21 Date of Dictation: 09/20/2021 MECHANICS: Prebronchodilator forced vital capacity (FVC) is normal. Prebronchodilator forced expiratory volume in one second (FEV1) is normal. FEV1/FVC is normal. There is no postbronchodilator study FLOW VOLUME LOOP: Normal LUNG VOLUMES: Total lung capacity (TLC) is reduced. Residual volume (RV) is mildly reduced. DIFFUSING CAPACITY FOR CARBON MONOXIDE: Mildly reduced . INTERPRETATION: The spirometry is normal. Postbronchodilator study not performed. Flow volume loop consistent is normal. Lung volumes suggestive of mild restriction. There is mild gas transfer defect. Clinical correlation recommended. MTDD
== END 2021-09-18 09:05 | disposition home or self-care (01) ==
LOC: RT 09:05
PROVIDERS: PCP Emergency Medicine Emergency Medical Services; Visit Provider Internal Medicine Critical Care Medicine
DX: R06.02 Shortness of breath (principal)
CPT/HCPCS: 94010; 94726; 94729

== ENCOUNTER 2021-11-28 07:54 | Outpatient (CLI) | payer OTHER, SELFPAY ==
--- NOTE | 2021-11-28 07:59 | ECG_ITS ---
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 Interpretive Statements NAME OF STUDY: LEXISCAN SESTAMIBI STRESS TEST INDICATION: Shortness of Breath PROCEDURE: At the baseline, the blood pressure was 135/68 mmHg with a heart rate of 63 bpm. The electrocardiogram showed sinus rhythm, normal axis. Poor anterior R wave progression. Nonspecific T wave abnormality. The Lexiscan was infused over a period of 20 seconds. A total of 0.4 milligrams of Lexiscan was infused. The stress phase was continued for a total of 5 minutes. Heart rate at the end of the stress phase was 90 bpm with a blood pressure of 142/65 mmHg. The EKG at the peak infusion revealed sinus rhythm with PACs with no significant ST-T wave changes. Sestamibi was injected 20 seconds after the Lexiscan infusion. Blood pressure at the end of the recovery phase was 143/60 mmHg with a heart rate of 83 beats per minute. CONCLUSION: 1. No significant EKG changes with the] LexiScan infusion. 2. No LexiScan induced chest pain or cardiac arrhythmia. 3. Normal blood pressure and heart rate response. 4. Sestamibi/sestamibi perfusion scan pending; see separate report. Electronically Signed On 12-05-2021 12:23:07 CDT by Jeannine Andrews M.D. [id number]
--- NOTE | 2021-11-28 08:00 | NMCV_ITS ---
NM aleks perf SPECT r/s* [id number] Yusuf Hayes Age: 86 Gender: M : 1935 Exam Date: 11/28/2021 09:38 Ordering Phys: Snow Hardwick MD Technologist: YANET Holman Exam Location: [facility] Indications: SHORTNESS OF BREATH STRESS TEST Please see separate stress test report in [facility] for full findings IMAGE PROTOCOL Rest/Stress 1 Lexiscan Day Radiopharmaceutical Dose (mCi) Administration Site Administered by Rest: Tc-99m 10.7 IV YANET Skinner Sestamibi Stress:Tc-99m 32.6 IV YANET Skinner Sestamibi Rest: 28-Nov-2021 60 Discovery 630 Stress: 28-Nov-2021 30 Discovery 630 0.4mg Lexiscan. Supine position only as patient was unable to lay prone. SPECT RESULTS Technical Quality: Excellent Raw Data Analysis: Normal Image Corrections: No attenuation or motion correction applied Summed Stress Score: 0 Summed Rest Score: 0 Summed Difference Score: 0 PERFUSION FINDINGS SPECT images demonstrate homogeneous tracer distribution throughout the myocardium. FUNCTIONAL RESULTS (calculated via Gated SPECT) Stress Image LV EF (%): 79 Stress EDV (mL):56 TID: 0.89 Stress ESV (mL):12 FUNCTIONAL FINDINGS: The left ventricle is normal in size. Transient Ischemia Dilatation of 0.89. The left ventricular ejection fraction is normal with a value of 79%. There is normal left ventricular wall thickening. IMPRESSIONS 1. Myocardial perfusion imaging is normal. 2. Overall left ventricular systolic function is normal without regional wall motion abnormalities, LVEF=79%. 3. EKG portion of the study will be reported separately. Jeannine Andrews MD (Electronically Signed) Final Date: 02 December 2021 08:40 S
[2021-11-28 08:15] VITALS: BMI 18.9
[2021-11-28] MEDS: regadenoson 0.4 Mg/5 ml Syringe IVP (10:21)
[2021-11-28 10:40] VITALS: BP 144/61; PULSE 85
== END 2021-11-28 07:55 | disposition home or self-care (01) ==
LOC: CDL 07:55
PROVIDERS: PCP Emergency Medicine Emergency Medical Services; Visit Provider Internal Medicine Critical Care Medicine
DX: R06.02 Shortness of breath (principal)
CPT/HCPCS: 78452; 93017; A9500; J2785

== ENCOUNTER → 2021-12-02 10:13 | Outpatient (BNVA) | payer OTHER, SELFPAY | PROVIDERS: PCP Emergency Medicine Emergency Medical Services; Visit Provider Internal Medicine Critical Care Medicine | DX: R06.02 Shortness of breath (principal); R05.9 Cough, unspecified | CPT/HCPCS: 99214 ==

== ENCOUNTER → 2022-04-07 13:43 | Outpatient (BNVA) | payer OTHER, SELFPAY | PROVIDERS: PCP Emergency Medicine Emergency Medical Services; Referring Provider Emergency Medicine Emergency Medical Services; Visit Provider Specialist | DX: R41.3 Other amnesia (principal); R20.0 Anesthesia of skin; R20.2 Paresthesia of skin; F41.8 Other specified anxiety disorders; R48.2 Apraxia; G62.9 Polyneuropathy, unspecified | CPT/HCPCS: 36415; 82607; 82746; 96116; 99205 ==

== ENCOUNTER 2022-06-05 09:14 | Outpatient (CLI) | payer OTHER, SELFPAY ==
--- NOTE | 2022-06-05 09:30 | MR_ITS ---
WS: [id number] MRI HEAD WITHOUT CONTRAST TECHNIQUE: Sagittal T1, T2 axial, T2 axial FLAIR, axial and coronal T1 images, axial susceptibility w eighted imaging, axial diffusion weighted images, and coronal T2 images were obtained. CLINICAL INFORMATION: R41.3 - Other amnesia COMPARISON: CT 2020 FINDINGS: No evidence of restricted diffusion to suggest acute ischemia. Ventricular system and basal cisterns are patent. Moderate small vessel changes. Moderate parenchymal volume loss. Small chronic lacunar in farct in the LEFT basal ganglia. Small vessel changes in the rigo. Normal posterior fossa. Normal vas cular flow voids at the skull base. No extra-axial fluid collections. No evidence of mass or mass eff ect. Mild mucosal thickening ethmoid air cells. Normal posterior nasopharynx. Mastoid air cells are well a erated. Mild central canal stenosis in the upper cervical spine at C3-C4 C4-C5 and C5-C6. Slight ante rolisthesis C3 on C4. No hemosiderin on the susceptibility weighted images. Normal optic chiasm and p ituitary infundibulum. Moderate symmetric atrophy temporal lobes and hippocampal formations. Normal c avernous sinuses and Meckel's cave. Normal posterior nasopharynx. MR/MR head wo con* [id number] IMPRESSION: 1. No evidence of restricted diffusion to suggest acute ischemia. 2. Moderate small vessel changes with moderate parenchymal volume loss. Small vessel changes in the rigo. 3. 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 4. No hemosiderin on susceptibly weighted images. 5. Moderate symmetric atrophy temporal lobes and temporal formations.a 6. Paranasal sinuses and mastoid air cells are well aerated. 7. Slight anterolisthesis C3 on C4 with mild central canal stenosis C3-C4 C4-C 5 and C5-C6. This can be followed up with cervical spine MRI.
== END 2022-06-05 09:15 | disposition home or self-care (01) ==
PROVIDERS: PCP Emergency Medicine Emergency Medical Services; Visit Provider Specialist
DX: R41.3 Other amnesia (principal); I63.81 Other cerebral infarction due to occlusion or stenosis of small artery; G31.9 Degenerative disease of nervous system, unspecified; M48.061 Spinal stenosis, lumbar region without neurogenic claudication
CPT/HCPCS: 70551

== ENCOUNTER → 2022-06-17 11:47 | Outpatient (BNVA) | payer OTHER, SELFPAY | PROVIDERS: PCP Emergency Medicine Emergency Medical Services; Visit Provider Specialist | DX: G31.84 Mild cognitive impairment of uncertain or unknown etiology (principal); G62.9 Polyneuropathy, unspecified; R48.2 Apraxia; F41.8 Other specified anxiety disorders; M48.02 Spinal stenosis, cervical region | CPT/HCPCS: 99214 ==

== ENCOUNTER 2022-07-30 06:00 | Outpatient (RCR) | payer OTHER, SELFPAY | END 2022-08-17 23:59 | disposition home or self-care (01) | LOC: APT 06:00 | PROVIDERS: Visit Provider Emergency Medicine Emergency Medical Services | DX: H81.10 Benign paroxysmal vertigo, unspecified ear (principal) | CPT/HCPCS: 97110; 97161 ==

== ENCOUNTER → 2022-08-13 13:56 | Outpatient (BNVA) | payer OTHER, SELFPAY | PROVIDERS: PCP Emergency Medicine Emergency Medical Services; Visit Provider Specialist | DX: G62.9 Polyneuropathy, unspecified (principal); R48.2 Apraxia; F41.8 Other specified anxiety disorders; M48.02 Spinal stenosis, cervical region; G31.84 Mild cognitive impairment of uncertain or unknown etiology | CPT/HCPCS: 99214 ==

== ENCOUNTER 2022-08-18 06:00 | Outpatient (RCR) | payer OTHER, SELFPAY | END 2022-09-17 23:59 | disposition home or self-care (01) | LOC: APT 06:00 | PROVIDERS: PCP Emergency Medicine Emergency Medical Services; Visit Provider Emergency Medicine Emergency Medical Services | DX: H81.13 Benign paroxysmal vertigo, bilateral (principal) | CPT/HCPCS: 97110; 97112; 97530 ==

== ENCOUNTER → 2022-08-28 09:09 | Outpatient (BNVA) | payer OTHER, SELFPAY | PROVIDERS: PCP Emergency Medicine Emergency Medical Services; Visit Provider Dermatology | DX: C44.622 Squamous cell carcinoma of skin of right upper limb, including shoulder (principal); C44.329 Squamous cell carcinoma of skin of other parts of face; L57.0 Actinic keratosis | CPT/HCPCS: 12032; 12052; 17000; 17003; 17311; 17313 ==

== ENCOUNTER 2022-09-03 13:22 | Emergency (ER) | payer OTHER, SELFPAY ==
[2022-09-03 13:44] VITALS: BP 150/76; PULSE 91; RESP 16; TEMP 36.7; O2SAT 97; BMI 19.5
[2022-09-03 15:10] LABS: Basophils % 0.3 %; Eosinophils # 0.1 10^3/uL (0.0-0.8); Eosinophils % 0.9 %; Hematocrit 34.1 % (42.0-52.0); Hemoglobin 10.8 g/dL (11.7-16.6); Lymphocytes # 0.8 10^3/uL (0.8-4.8); Lymphocytes % 12.1 %; Mean Corpuscular HGB Conc 31.7 g/dL (30.0-36.0); Mean Corpuscular Hemoglobin 28.7 pg (28.0-34.0); Mean Corpuscular Volume 90.7 fl (80-94); Monocytes # 0.8 10^3/uL (0.2-0.9); Monocytes % 11.3 %; Neutrophils # 5.22 10^3/uL (1.8-7.7); Neutrophils % 74.8 %; Nucleated Red Blood Cells % 0 %; Platelet Count 445 10^3/cmm (130-400); Red Blood Count 3.76 10^6/uL (4.1-5.3)
--- NOTE | 2022-09-03 15:15 | W.ED.RECABL ---
HPI - Recheck/Abnormal Lab/Rx General: Chief Complaint: Recheck/Abnormal Lab/Rx Stated Complaint: [facility], blood in urine Time Seen by Provider: 09/03/22 15:14 History of Present Illness: Patient is an 87-year-old male comes to the ED to recheck labs. [facility] and says that he had some blood work done there and they told him that his hemoglobin was low and he needs to come to the ED to be reevaluated. Patient says he has a history of anemia and usually his hemoglobin ranges from 10-12. He is unsure of how low the hemoglobin level was when the [facility] tested it couple days ago. He states that for the past 2 weeks he has been having some on and off left flank pain that radiates down into the left side of his bladder. He states that he has had kidney stones in the past and says this pain feels similar to past kidney stones. Pain in left flank stopped 2 days ago when he says last 2 days he has had no pain and is feeling great. He does endorse a little bit of generalized fatigue and states that his endurance when up and walking has decreased a little bit. Denies any fevers, nausea/vomiting, chest pain, shortness of breath, abdominal pain, vomiting, bladder or bowel symptoms. Patient denies any current health complaints or symptoms. Review of Systems Const: Denies: fever(s), chills or fatigue Eyes: Denies: change in vision or eye discomfort ENMT: Denies: throat pain, odynophagia, nasal discharge or nasal congestion Card: Denies: chest pain, palpitations, edema, swelling of feet/ankles, dyspnea on exertion or orthopnea Resp: Denies: dyspnea, productive cough or non-productive cough GI: Denies: abdominal pain, nausea, vomiting, diarrhea, constipation or hematochezia : Denies: flank pain, difficulty urinating, dysuria or hematuria Musc: Denies: neck pain, back pain or extremity swelling Skin/Breast: Denies: rash or new lesions Neuro: Denies: headache(s), numbness in extremities or weakness in extremities PFS ED PFSH: Medical History BPH (benign prostatic hyperplasia) History of nonmelanoma skin cancer Nephrolithiasis Urinary retention Surgical History History of appendectomy History of hernia repair Family History Father , AT AGE 67 CAD (coronary artery disease) Mother , AT AGE 67 Cancer Social History Smoking and tobacco status: never smoked Alcohol intake: never Marital status: Single Current occupational status: retired Physical Exam Const: COMMON NORMALS: patient oriented x3 HENMT: COMMON NORMALS: normocephalic HEAD & SCALP: normocephalic MOUTH: Normal oral and palatal mucosa present THROAT: posterior oropharynx normal and uvula midline Neck/C-Spine: COMMON NORMALS: supple GENERAL: Yes normal visual inspection Resp: COMMON NORMALS: normal respiratory effort, No retractions, No use of accessory muscles and clear to auscultation bilaterally AUSCULTATION: clear to auscultation bilaterally Cardio: COMMON NORMALS: regular rate, regular rhythm, S1 normal heart sound present, S2 normal heart sound present, No gallops present (Cardio), No clicks present (Cardio), No murmurs present (Cardio) and Peripheral pulses 2+ throughout RATE: regular rate RHYTHM: regular rhythm HEART SOUNDS: S1 normal heart sound present and S2 normal heart sound present PERIPHERAL PULSES: Peripheral pulses 2+ throughout GI: COMMON NORMALS: Normal to inspection, nondistended, normoactive bowel sounds present, Soft to palpation, non-tender and no masses PALPATION: Yes Soft to palpation : COMMON NORMALS: Yes no CVA tenderness BLADDER/KIDNEY EXAM: Yes no CVA tenderness Back/Pelvis: COMMON NORMALS: no CVA tenderness Extremity: COMMON NORMALS: normal to inspection Neuro: COMMON NORMALS: patient oriented x3 GAIT: Yes Normal gait present Skin: GENERAL SKIN EXAM: dry skin Course Vital Signs: Vital signs: Vital Signs Temperature 98.0 F 09/03/22 13:44 Pulse Rate 91 09/03/22 13:44 Respiratory Rate 16 09/03/22 13:44 Blood Pressure 150/76 09/03/22 13:44 Pulse Oximetry 97 09/03/22 13:44 Oxygen Delivery Me thod Room Air 09/03/22 13:44 MDM - Recheck/Abnormal Lab/Rx Medical Decision Making Patient is an 87-year-old male comes to the ED to recheck labs. [facility] and says that he had some blood work done there and they told him that his hemoglobin was low and he needs to come to the ED to be reevaluated. Patient says he has a history of anemia and usually his hemoglobin ranges from 10-12. He is unsure of how low the hemoglobin level was [facility]. He states that for the past 2 weeks he has been having some on and off left flank pain that radiates down into the left side of his bladder. He states that he has had kidney stones in the past and says this pain feels similar to past kidney stones. Pain in left flank stopped 2 days ago when he says last 2 days he has had no pain and is feeling great. He does endorse a little bit of generalized fatigue and states that his endurance when up and walking has decreased a little bit. Denies any fevers, nausea/vomiting, chest pain, shortness of breath, abdominal pain, vomiting, bladder or bowel symptoms. Patient denies any current health complaints or symptoms. Vitals are stable. Exam of patient is benign and he appears healthy and in no acute distress or pain. Hemoglobin was 10.8 but the rest of CBC and BMP was unremarkable. Patient does have some red blood cells in urine but no signs of any UTI. Patient was stable for discharge home and diagnosed with anemia and hematuria. He was told to follow-up with his PCP within the next week for reevaluation and to have his hemoglobin levels rechecked. Return ED precautions given. Patient understood and agreed with plan. Lab Data I reviewed the patient's lab results. 09/03/22 14:58 09/03/22 14:58 Laboratory Results WBC 7.0 10^3/uL (4.0-10.0) 09/03/22 14:58 RBC 3.76 10^6/uL (4.1-5.3) L 09/03/22 14:58 Hgb 10.8 g/dL (11.7-16.6) L 09/03/22 14:58 Hct 34.1 % (42.0-52.0) L 09/03/22 14:58 MCV 90.7 fl (80-94) 09/03/22 14:58 MCH 28.7 pg (28.0-34.0) 09/03/22 14:58 MCHC 31.7 g/dL (30.0-36.0) 09/03/22 14:58 RDW 13.0 % (12.1-15.1) 09/03/22 14:58 Plt Count 445 10^3/cmm (130-400) H 09/03/22 14:58 MPV 9.0 fL (7.4-10.4) 09/03/22 14:58 Neut % (Auto) 74.8 % 09/03/22 14:58 Lymph % (Auto) 12.1 % 09/03/22 14:58 [place] % (Auto) 11.3 % 09/03/22 14:58 Eos % (Auto) 0.9 % 09/03/22 14:58 Baso % (Auto) 0.3 % 09/03/22 14:58 Neut # (Auto) 5.22 10^3/uL (1.8-7.7) 09/03/22 14:58 Lymph # (Auto) 0.8 10^3/uL (0.8-4.8) 09/03/22 14:58 [place] # (Auto) 0.8 10^3/uL (0.2-0.9) 09/03/22 14:58 Eos # (Auto) 0.1 10^3/uL (0.0-0.8) 09/03/22 14:58 Baso # (Auto) 0.0 10^3/uL (0.0-0.1) 09/03/22 14:58 Nucleated RBC % (auto) 0 % 09/03/22 14:58 Nucleated RBCs # 0.0 /100WBC 09/03/22 14:58 Sodium 140 mmol/L (136-145) 09/03/22 14:58 Potassium 4.7 mmol/L (3.5-5.1) 09/03/22 14:58 Chloride 102 mmol/L (98-107) 09/03/22 14:58 Carbon Dioxide 25 mmol/L (22-29) 09/03/22 14:58 Anion Gap 17.7 (5-19) 09/03/22 14:58 BUN 27 mg/dL (8-23) H 09/03/22 14:58 Creatinine 1.4 mg/dL (0.7-1.2) H 09/03/22 14:58 GFR Calculation Not Reportable 09/03/22 14:58 Glucose 113 mg/dL (65-115) 09/03/22 14:58 Calculated Osmolality 296 mOsm/kg (285-295) H 09/03/22 14:58 Calcium 9.5 mg/dL (8.5-10.5) 09/03/22 14:58 Urine Color Yellow (Yellow) 09/03/22 13:55 Urine Appearance Clear (CLEAR) 09/03/22 13:55 Urine pH 6 (5-7) 09/03/22 13:55 Ur Specific [place] 1.015 (1.005-1.030) 09/03/22 13:55 Urine Protein Neg (Negative) 09/03/22 13:55 Urine Glucose (UA) Norm (Normal) 09/03/22 13:55 Urine Ketones Negative (Negative) 09/03/22 13:55 Urine Blood 3+ (Negative) H 09/03/22 13:55 Urine Nitrate Negative (Negative) 09/03/22 13:55 Urine Bilirubin Neg (Negative) 09/03/22 13:55 Urine Urobilinogen Norm mg/dL (Negative) 09/03/22 13:55 Ur Leukocyte Esterase Negative (Negative) 09/03/22 13:55 Urine RBC 5-10 /hpf (0-2) H 09/03/22 13:55 Urine WBC 5-10 /hpf (0-5) H 09/03/22 13:55 Ur Squamous Epith Cells None /hpf (0-5) 09/03/22 13:55 Amorphous Sediment Not Reportable 09/03/22 13:55 Urine Bacteria Trace /hpf (NONE) 09/03/22 13:55 Discharge Plan Discharge Patient Disposition: Home Clinical Impression: Hematuria Anemia Qualifiers: Anemia type: unspecified type Qualified Code(s): D64.9 - Anemia, unspecified Condition: Stable Prescriptions: No Action ammonium lactate 12 % cream 1 applic topical DAILY Qty: 385 3RF Rx Instructions: Apply neck down daily levalbuterol tartrate 45 mcg/actuation HFA aerosol inhaler 2 inh inhalation Q6H PRN (Reason: shortness of breath) Qty: 15 2RF (DME) cane Device See Rx Instructions .Route Qty: 1 0RF Rx Instructions: As directed aripiprazole 2 mg tablet 2 mg PO DAILY 90 Days Qty: 90 2RF Rx Instructions: Take 1 tablet at bedtime for anxiety and sleep citalopram 20 mg tablet 40 mg PO DAILY 90 Days Qty: 180 1RF Rx Instructions: Take 2 tablets daily gabapentin 100 mg capsule 100 mg PO TID 30 Days Qty: 90 6RF losartan 50 mg Tablet 25 mg PO QAM latanoprost 0.005 % drops 1 drp ophthalmic (eye) BEDTIME Rx Instructions: both eyes calcium carbonate [Calcium 600] 600 mg calcium (1,500 mg) Tablet 600 mg PO DAILY ibuprofen 200 mg Tablet 200 mg PO BID@12,22 omeprazole 20 mg Capsule,Delayed Release(Dr/Ec) 20 mg PO DAILY@12 fluticasone propionate [Flonase Allergy Relief] 50 mcg/actuation [place],Suspension 2 spray INTRANASAL DAILY PRN (Reason: Allergy Symptoms) finasteride [Proscar] 5 mg Tablet 5 mg PO BEDTIME Glucosamine Complex-MSM Capsule 1 cap PO DAILY@12 omega 4-rpl-hbz-fish oil [Fish Oil] 1,000 mg (120 mg-180 mg) Capsule 1 cap PO DAILY tamsulosin 0.4 mg capsule 0.8 mg PO BEDTIME multivitamin Tablet 1 tab PO DAILY calcitonin (salmon) 200 unit/actuation [place],Non-Aerosol 1 spray INTRANASAL (ALT) DAILY Discharge Orders: Discharge ED (Routine); Ordered 09/03/22 Ordered By: Shade Da Silva Referrals: Eric Linda DO [Primary Care Provider] - Discharge Diet: Regular Discharge Activity: Increase activity as tolerated Patient Instructions: Anemia, Hematuria - Male Activity Restrictions/Additional Instructions: Follow-up with medical provider as directed in the next 5 to 7 days for reevaluation. Have your primary care doctor recheck your hemoglobin levels as well at your next appointment. Talk with your doctor about being referred to urologist due to microscopic blood in urine. Continue taking all home medications as previously prescribed. return to the ER or your medical provider if condition worsens. Please read and understand discharge instructions. Thank you for choosing [facility] for your healthcare needs today. Please realize this is an emergency room and that we are providing you with a medical screening exam and this may not be complete and all inclusive of all the testing and or work up that you may need to determine your ailment or severity of your illness. It is very important that you follow up as instructed or that you return to the Emergency Department should you have concerns or if your condition changes or worsens in any way. Coding Level of Care Code ED Interactive Web Developer for [facility]
[2022-09-03 16:20] LABS: Add Urine Culture? No; Add Urine Microscopic? YES; Bacteria Urine TRACE /hpf; Bilirubin Urine Neg (Negative); Blood Urine 3+ (Negative); Glucose Urine UA Norm (Normal); Ketones Urine Negative (Negative); Leukocyte Esterase Urine Negative (Negative); Nitrate Urine Negative (Negative); Protein Urine Neg (Negative); Specific Gravity, Urine 1.015 (1.005-1.030); Urine Appearance Clear (CLEAR); Urine Color Yellow (Yellow); Urobilinogen Urine Norm (Negative); pH Urine 6 (5-7)
[2022-09-03 16:31] LABS: Anion Gap 17.7 (5-19); Blood Urea Nitrogen 27 mg/dL (8-23); Calcium 9.5 mg/dL (8.5-10.5); Carbon Dioxide 25 mmol/L (22-29); Chloride 102 mmol/L (98-107); Glucose 113 mg/dL (65-115); Osmolality Calculated 296 mOsm/kg (285-295); Potassium 4.7 mmol/L (3.5-5.1); Sodium 140 mmol/L (136-145)
== END 2022-09-03 16:45 | disposition home or self-care (01) ==
PROVIDERS: Family Medicine; Emergency Provider Physician Assistant; PCP Emergency Medicine Emergency Medical Services
DX: D64.9 Anemia, unspecified (principal); R31.9 Hematuria, unspecified
CPT/HCPCS: 36415; 80048; 81001; 85025; 99283

== ENCOUNTER → 2022-09-08 15:22 | Outpatient (BNVA) | payer OTHER, MEDICARE, SELFPAY | PROVIDERS: PCP Emergency Medicine Emergency Medical Services; Visit Provider Dermatology | DX: L57.0 Actinic keratosis (principal); Z48.02 Encounter for removal of sutures | CPT/HCPCS: 17000 ==

== ENCOUNTER 2022-09-12 11:48 | Outpatient (CLI) | payer OTHER, SELFPAY ==
--- NOTE | 2022-09-12 | CT_ITS ---
WS: [id number] CT ABDOMEN AND PELVIS NONCONTRAST HISTORY: HEMATURIA TECHNIQUE: Imaging performed through the abdomen and pelvis. Coronal and sagittal reformats are submi tted. All CT scans at [facility] use at least one of these dose optimization techniques: auto mated exposure control; mA and/or kV adjustment per patient size (includes targeted exams where dose is matched to clinical indication); or iterative reconstruction. DLP: 217.86 mGy.cm COMPARISON: 02/21/2021 Lower thorax: Chronic emphysematous changes. Mild interstitial thickening and bronchiectasis. Normal size heart. Liver: Normal size liver. No mass or bile duct dilatation. Gallbladder: Normal gallbladder. No pericholecystic fluid or cholelithiasis. No gallbladder wall thic kening. Pancreas: Normal size and attenuation. Normal pancreatic duct. No pancreatitis or mass. Spleen: Normal size with granulomata. Adrenal glands: Normal. No mass. Right kidney: Normal size kidney. Very mild perinephric stranding. Stable cystic mass mid kidney russ ures 1.5 cm. Nonobstructing calcifications in the RIGHT kidney. No ureteral calcification. Left kidney: Moderate hydroureteronephrosis. No ureteral calcification. Nonobstructing calcifications in the renal pelvis. Low-attenuation masses within the kidney are known cyst. Aorta: Moderate to severe atherosclerosis abdominal aorta. No aneurysm. Atherosclerosis continues int o the common iliac arteries. No free fluid, intraperitoneal air or significant lymphadenopathy. GI tract: Nondistended GI tract. No oral contrast provided. Marked overlapping loops of colon with di ffuse constipation. Prior appendectomy. Abdominal wall: Negative. No hernia. Pelvis: Well-distended urinary bladder. There are 2 calcifications in the urinary bladder. Each measu ring approximately 5 mm. One calcification is at the orifice of the LEFT ureter. The additional calci fications in the RIGHT bladder. Prostate gland is enlarged encroaching into the bladder. Osseous structures: Marked LEFT rotoscoliosis lumbar spine. Disc spaces are narrowed and degenerated. Air in the disc spaces. CT/CT abdomen pelvis wo con [id number] IMPRESSION: 1. Moderate LEFT hydroureteronephrosis. No ureteral calcifications are identif ied. There are 2 calcifications actually within the urinary bladder which were likely recently passed. These calcifications each measure approximately 5 mm an d one is closely positioned near the distal LEFT ureter. 2. Prior appendectomy. 3. No GI tract obstruction. 4. Nonobstructing bilateral renal calcifications.
== END 2022-09-12 11:49 | disposition home or self-care (01) ==
LOC: RAD 11:51
PROVIDERS: PCP Emergency Medicine Emergency Medical Services; Visit Provider Emergency Medicine Emergency Medical Services
DX: R31.9 Hematuria, unspecified (principal); R10.32 Left lower quadrant pain; N17.9 Acute kidney failure, unspecified; N13.30 Unspecified hydronephrosis; N28.89 Other specified disorders of kidney and ureter; Z90.89 Acquired absence of other organs
CPT/HCPCS: 74176

== ENCOUNTER → 2022-10-02 10:39 | Outpatient (BNVA) | payer OTHER, SELFPAY | PROVIDERS: PCP Emergency Medicine Emergency Medical Services; Visit Provider Nurse Practitioner Family | DX: C44.629 Squamous cell carcinoma of skin of left upper limb, including shoulder (principal); L57.0 Actinic keratosis; L81.4 Other melanin hyperpigmentation; D22.5 Melanocytic nevi of trunk; L57.8 Other skin changes due to chronic exposure to nonionizing radiation | CPT/HCPCS: 11102; 17000; 17003; 99213 ==

== ENCOUNTER → 2022-11-04 13:48 | Outpatient (BNVA) | payer OTHER, SELFPAY | PROVIDERS: PCP Emergency Medicine Emergency Medical Services; Visit Provider Specialist | DX: G31.84 Mild cognitive impairment of uncertain or unknown etiology (principal); F41.8 Other specified anxiety disorders; R48.2 Apraxia | CPT/HCPCS: 99213 ==

== ENCOUNTER → 2022-11-05 10:18 | Outpatient (BNVA) | payer OTHER, SELFPAY | PROVIDERS: PCP Emergency Medicine Emergency Medical Services; Visit Provider Dermatology | DX: C44.629 Squamous cell carcinoma of skin of left upper limb, including shoulder (principal) | CPT/HCPCS: 11603; 12032 ==

== ENCOUNTER 2022-11-25 12:58 | Emergency (ER) | payer OTHER, SELFPAY ==
[2022-11-25 13:07] VITALS: BP 140/72; PULSE 87; RESP 16; TEMP 36.7; O2SAT 97; BMI 19.1
[2022-11-25 13:10] VITALS: BP 114/62; PULSE 70; RESP 18; O2SAT 98
[2022-11-25 13:33] LABS: Basophils % 0.4 %; Eosinophils % 0.4 %; Hematocrit 36.8 % (42.0-52.0); Hemoglobin 11.6 g/dL (11.7-16.6); Lymphocytes # 0.7 10^3/uL (0.8-4.8); Mean Corpuscular HGB Conc 31.5 g/dL (30.0-36.0); Mean Corpuscular Hemoglobin 29.1 pg (28.0-34.0); Mean Corpuscular Volume 92.5 fl (80-94); Mean Platelet Volume 9.9 fL (7.4-10.4); Monocytes # 0.5 10^3/uL (0.2-0.9); Monocytes % 9.4 %; Neutrophils # 4.21 10^3/uL (1.8-7.7); Neutrophils % 77.6 %; Nucleated Red Blood Cells % 0 %; Platelet Count 215 10^3/cmm (130-400); Red Blood Count 3.98 10^6/uL (4.1-5.3); Red Cell Distribution Width 14.3 % (12.1-15.1); White Blood Count 5.4 10^3/uL (4.0-10.0)
[2022-11-25 13:45] LABS: Add Urine Microscopic? NO; Charge for UA Resulting for Rev
[2022-11-25 13:50] LABS: Bilirubin Urine Neg (Negative); Blood Urine Neg (Negative); Glucose Urine UA Norm (Normal); Ketones Urine Negative (Negative); Leukocyte Esterase Urine Negative (Negative); Nitrate Urine Negative (Negative); Protein Urine Neg (Negative); Sulfosalicylic Acid Urine Negative (Negative); Urine Appearance Clear (CLEAR); Urine Color Yellow (Yellow); Urobilinogen Urine Norm (Negative); pH Urine 9 (5-7)
[2022-11-25 13:50] LABS: Alanine Aminotransferase 12 U/L (0-41); Albumin Level 4.2 g/dL (3.5-5.2); Alkaline Phosphatase 111 U/L (40-130); Anion Gap 14.4 (5-19); Aspartate Amino Transferase 20 U/L (0-40); Blood Urea Nitrogen 17 mg/dL (8-23); Calcium 9.1 mg/dL (8.5-10.5); Carbon Dioxide 28 mmol/L (22-29); Chloride 99 mmol/L (98-107); Globulin 2.8 g/dL (1.3-4.6); Glucose 122 mg/dL (65-115); Lipase 22 U/L (13-60); Magnesium 2.2 mg/dL (1.7-2.3); Osmolality Calculated 287 mOsm/kg (285-295); Potassium 4.4 mmol/L (3.5-5.1); Sodium 137 mmol/L (136-145); Total Bilirubin 0.3 mg/dL (0.15-1.2)
--- NOTE | 2022-11-25 13:54 | ED_ITS ---
HPI - Male Genitourinary General: Chief complaint: Urogenital-Male Stated complaint: n/v possible uro genital Time Seen by Provider: 11/25/22 13:11 History of Present Illness: Presents to the ER with complaints of being nauseated for a month with no emesis. Patient has used prescription antinausea pills with no luck. Patient states for about the last week he has been having more volume of urine and urinary frequency but no pain burning or hematuria noted. Patient does have a h istory of kidney stones but has had this totally different than that. Patient denies any abdominal pain bloating distention etc. Review of Systems General: Reports: 10 or more systems reviewed and unremarkable except in HPI and below PFSH ED PFSH: Medical History BPH (benign prostatic hyperplasia) History of nonmelanoma skin cancer Nephrolithiasis Urinary retention Surgical History History of appendectomy History of hernia repair Family History Father , AT AGE 67 CAD (coronary artery disease) Mother , AT AGE 67 Cancer Social History Smoking and tobacco status: never smoked Alcohol intake: never Marital status: Single Current occupational status: retired Physical Exam Const: COMMON NORMALS: no acute distress, average body habitus, patient oriented x3, no limitations, healthy appearing, alert and well nourished HENMT: COMMON NORMALS: normocephalic, atraumatic, hearing grossly normal bilaterally, external ears normal, Normal external nose present and moist oral mucous membranes HEAD & SCALP: normocephalic and atraumatic NOSE: Normal external nose present EXTERNAL EAR: Yes external ears normal Neck/C-Spine: COMMON NORMALS: full ROM, no lymphadenopathy, supple, no meningeal signs, no JVD and Thyroid normal THYROID: Thyroid normal Lymph: LYMPHATIC: no lymphadenopathy noted Chest: COMMONS NORMALS: normal inspection of the chest and normal palpation of entire chest wall Resp: COMMON NORMALS: normal respiratory effort, No retractions, No use of accessory muscles and clear to auscultation bilaterally AUSCULTATION: clear to auscultation bilaterally Cardio: COMMON NORMALS: no JVD, regular rate, regular rhythm, S1 normal heart sound present, S2 normal heart sound present, No gallops present (Cardio), No clicks present (Cardio), No murmurs present (Cardio) and No rub (Cardio) RATE: regular rate RHYTHM: regular rhythm HEART SOUNDS: S1 normal heart sound present and S2 normal heart sound present GI: COMMON NORMALS: Normal to inspection, nondistended, normoactive bowel sounds present, Soft to palpation, non-tender, No hepatosplenomegaly present and no masses PALPATION: Yes Soft to palpation and Yes No hepatosplenomegaly present : COMMON NORMALS: Yes no CVA tenderness BLADDER/KIDNEY EXAM: Yes no CVA tenderness Back/Pelvis: COMMON NORMALS: no CVA tenderness Neuro: COMMON NORMALS: patient oriented x3 SENSORIUM/ORIENTATION: Yes alert MENINGEAL SIGNS: Yes no meningeal signs Course Vital Signs: Vital signs: Vital Signs Temperature 98.1 F 11/25/22 13:07 Pulse Rate 70 11/25/22 13:10 Respiratory Rate 18 11/25/22 13:10 Blood Pressure 114/62 11/25/22 13:10 Pulse Oximetry 98 11/25/22 13:10 Oxygen Delivery Me thod Room Air 11/25/22 13:07 MDM - Male Medical Decision Making Presents to the ER with complaints of nausea for the last month and increased urinary frequency and volume for the last couple weeks. Physical exam was performed lab work was obtained as well as a abdomen pelvis CT all of which were essentially benign except some gastric distention could be significant for gastroparesis, to find out patient already has an appointment set up through the [facility] to go have an EGD done. Patient be discharged home and told to keep this appointment. Differential Diagnosis Likely urinary tract infection; Unlikely priapism, urethritis, epididymitis, genital herpes simplex, prostatitis, acute retention of urine or inguinal hernia Medical Records I reviewed the patient's medical records. Lab Data I reviewed the patient's lab results. 11/25/22 13:26 11/25/22 13:26 Radiology Impressions Abdomen/Pelvis CT 11/25/22 14:02 IMPRESSION: 1. Mild gastric distension without evidence of gastritis. This finding is of uncertain significance. Possible gastroparesis or gastric outlet obstruction. Correlate with timing of last ingestion. No sign of small bowel obstruction. 2. Bilateral lower lung nodules measuring up to 10 mm, incompletely imaged on prior exams.For patients at low risk (minimal or absent history of smoking and of other known risk factors), recommend CT Chest at 3-6 months, then consider CT Chest at 18-24 months. For patients at high risk (history of smoking or of other known risk factors), recommend CT Chest at 3-6 months, then CT Chest at 18-24 months. (Reference: Ehsan) 3. Subcentimeter liver nodules, too small to fully characterize. In a low-risk patient, this is most likely to be benign and no further follow-up is recommended. In a high-risk patient, follow-up MRI in 3-6 months is recommended (or earlier if warranted by the patient's specific clinical circumstances). (Reference: Mackenzie) 4. Additional incidental findings above. COMMENTS: Consistent with the [employer]'s Incidental Findings Committee white paper (J Am Corby Radiol 2018): Any incidental renal lesion less than 1 cm or classified as too small to characterize, or any incidental cystic renal lesion characterized as simple-appearing, is likely benign. No follow-up imaging is recommended for these lesions per consensus recommendations based on imaging criteria. REFERENCES: 1. Ehsan H, et al. Guidelines for Management of Incidental Pulmonary Nodules Detected on CT Images: From the Fleischner Society 2017. Radiology. 2017;284(1):228-243. 2. Mackenzie BASS, et al. Management of Incidental Liver Lesions on CT: A White Paper of the ACR Incidental Findings Committee. J Am Corby Radiol. 2017;14(11):9773-2223. Laboratory Results WBC 5.4 10^3/uL (4.0-10.0) 11/25/22 13:26 RBC 3.98 10^6/uL (4.1-5.3) L 11/25/22 13:26 Hgb 11.6 g/dL (11.7-16.6) L 11/25/22 13:26 Hct 36.8 % (42.0-52.0) L 11/25/22 13:26 MCV 92.5 fl (80-94) 11/25/22 13:26 MCH 29.1 pg (28.0-34.0) 11/25/22 13:26 MCHC 31.5 g/dL (30.0-36.0) 11/25/22 13:26 RDW 14.3 % (12.1-15.1) 11/25/22 13:26 Plt Count 215 10^3/cmm (130-400) 11/25/22 13:26 MPV 9.9 fL (7.4-10.4) 11/25/22 13:26 Neut % (Auto) 77.6 % 11/25/22 13:26 Lymph % (Auto) 12.0 % 11/25/22 13:26 [place] % (Auto) 9.4 % 11/25/22 13:26 Eos % (Auto) 0.4 % 11/25/22 13:26 Baso % (Auto) 0.4 % 11/25/22 13:26 Neut # (Auto) 4.21 10^3/uL (1.8-7.7) 11/25/22 13:26 Lymph # (Auto) 0.7 10^3/uL (0.8-4.8) L 11/25/22 13:26 [place] # (Auto) 0.5 10^3/uL (0.2-0.9) 11/25/22 13:26 Eos # (Auto) 0.0 10^3/uL (0.0-0.8) 11/25/22 13:26 Baso # (Auto) 0.0 10^3/uL (0.0-0.1) 11/25/22 13:26 Nucleated RBC % (auto) 0 % 11/25/22 13:26 Nucleated RBCs # 0.0 /100WBC 11/25/22 13:26 Sodium 137 mmol/L (136-145) 11/25/22 13:26 Potassium 4.4 mmol/L (3.5-5.1) 11/25/22 13:26 Chloride 99 mmol/L (98-107) 11/25/22 13:26 Carbon Dioxide 28 mmol/L (22-29) 11/25/22 13:26 Anion Gap 14.4 (5-19) 11/25/22 13:26 BUN 17 mg/dL (8-23) 11/25/22 13:26 Creatinine 1.2 mg/dL (0.7-1.2) 11/25/22 13:26 GFR Calculation Not Reportable 11/25/22 13:26 Glucose 122 mg/dL (65-115) H 11/25/22 13:26 Calculated Osmolality 287 mOsm/kg (285-295) 11/25/22 13:26 Calcium 9.1 mg/dL (8.5-10.5) 11/25/22 13:26 Magnesium 2.2 mg/dL (1.7-2.3) 11/25/22 13:26 Total Bilirubin 0.3 mg/dL (0.15-1.2) 11/25/22 13:26 AST 20 U/L (0-40) 11/25/22 13:26 ALT 12 U/L (0-41) 11/25/22 13:26 Alkaline Phosphatase 111 U/L (40-130) 11/25/22 13:26 Total Protein 7.0 g/dL (6.6-8.7) 11/25/22 13:26 Albumin 4.2 g/dL (3.5-5.2) 11/25/22 13:26 Globulin 2.8 g/dL (1.3-4.6) 11/25/22 13:26 Lipase 22 U/L (13-60) 11/25/22 13:26 Urine Color Yellow (Yellow) 11/25/22 13:41 Urine Appearance Clear (CLEAR) 11/25/22 13:41 Urine pH 9 (5-7) H 11/25/22 13:41 Ur Specific [place] 1.010 (1.005-1.030) 11/25/22 13:41 Urine Protein Neg (Negative) 11/25/22 13:41 Urine Glucose (UA) Norm (Normal) 11/25/22 13:41 Urine Ketones Negative (Negative) 11/25/22 13:41 Urine Blood Neg (Negative) 11/25/22 13:41 Urine Nitrate Negative (Negative) 11/25/22 13:41 Urine Bilirubin Neg (Negative) 11/25/22 13:41 Prot Sulfosalicylic Acd Negative (Negative) 11/25/22 13:41 Urine Urobilinogen Norm mg/dL (Negative) 11/25/22 13:41 Ur Leukocyte Esterase Negative (Negative) 11/25/22 13:41 Discharge Plan Discharge Patient Disposition: Home Clinical Impression: Nausea, Gastroparesis Condition: Stable Prescriptions: No Action (DME) cane Device See Rx Instructions .Route Qty: 1 0RF Rx Instructions: As directed citalopram 20 mg tablet 20 mg PO DAILY 30 Days Qty: 90 5RF Rx Instructions: stop taking ~ 2 weeks ago per pt losartan 50 mg Tablet 25 mg PO QAM latanoprost 0.005 % drops 1 drp ophthalmic (eye) BEDTIME Rx Instructions: both eyes calcium carbonate [Calcium 600] 600 mg calcium (1,500 mg) Tablet 600 mg PO DAILY@12 ibuprofen 200 mg Tablet 200 mg PO BEDTIME PRN (Reason: Pain) omeprazole 20 mg Capsule,Delayed Release(Dr/Ec) 20 mg PO DAILY@12 fluticasone propionate [Flonase Allergy Relief] 50 mcg/actuation [place],Suspension 1 spray INTRANASAL BEDTIME finasteride [Proscar] 5 mg Tablet 5 mg PO BEDTIME omega 0-vhw-tql-fish oil [Fish Oil] 1,000 mg (120 mg-180 mg) Capsule 1 cap PO DAILY@12 tamsulosin 0.4 mg capsule 0.8 mg PO BEDTIME multivitamin Tablet 1 tab PO DAILY@12 calcitonin (salmon) 200 unit/actuation [place],Non-Aerosol 1 spray INTRANASAL (ALT) QAM Tylenol Ex Str Rapid Release 500 mg Tablet 500 mg PO BEDTIME PRN (Reason: Pain) ondansetron 4 mg tablet,disintegrating 4 mg PO Q6H PRN (Reason: Nausea And Vomiting) Atlidj-Memjd-GVB (with antiox) 500-500-66.7 mg Tablet 1 tab PO DAILY@12 ammonium lactate 12 % cream 1 applic topical DAILY PRN (Reason: unknown) Rx Instructions: Apply neck down daily Discharge Orders: Discharge ED (Routine); Ordered 11/25/22 Ordered By: Dae Goodman Referrals: Eric Linda DO [Primary Care Provider] - 1 week Patient Instructions: Acute Nausea and Vomiting (ED), Gastroparesis (ED) Activity Restrictions/Additional Instructions: [facility]. Please follow-up with your primary care practitioner in the next 7 to 10 days as needed for further evaluation and treatment. 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
--- NOTE | 2022-11-25 14:01 | PC.PHAR ---
pt states he takes care of his own medications-pt states he stop taking celexa 20mg daily about 2 weeks ago-[facility] for med list-medications entered are what the pt states he takes
--- NOTE | 2022-11-25 14:02 | CTR_ITS ---
PROCEDURE INFORMATION: Exam: CT Abdomen And Pelvis With Contrast Exam date and time: 11/25/2022 2:13 PM Age: 87 years old Clinical indication: Nausea; Prior surgery; Surgery date: 6+ months; Surgery type: Appy, hernia; Additional info: Nausea, abd pain HX of kidney stones TECHNIQUE: Imaging protocol: Computed tomography of the abdomen and pelvis with contrast. Radiation optimization: All CT scans at this facility use at least one of these dose optimization techniques: automated exposure control; mA and/or kV adjustment per patient size (includes targeted exams where dose is matched to clinical indication); or iterative reconstruction. Contrast material: OMNI 350; Contrast volume: 100 ml; Contrast route: INTRAVENOUS (IV); REPORTING DATA: Count of CT and Cardiac NM exams in prior 12 months: This patient has received 2 known CTs and 0 known cardiac nuclear medicine studies in the 12 months prior to the current study. COMPARISON: CT abdomen pelvis wo con [id number] 09/12/2022 1:08 PM RADIATION DOSE METRICS: Total DLP (mGy-cm): 308.64 FINDINGS: Lungs: There is multifocal subpleural scarring in the lower lungs bilaterally. There are scattered subpleural nodules measuring up to 10 mm in the left lower lobe. Diaphragm: There is a small sliding-type hiatal hernia. Liver: There are subcentimeter hypodense hepatic nodules which are too small to fully characterize on this exam. Gallbladder and bile ducts: The gallbladder is decompressed. There is diffuse irregular mural thickening. No stones. There is no intrahepatic or extrahepatic bile duct dilation. Pancreas: There is moderate atrophy of the pancreas. Spleen: Splenic size is normal. There are scattered calcifications consistent with healed granulomas. Adrenal glands: The adrenal glands are unremarkable. Kidneys and ureters: There is contrast in the renal collecting systems which would obscure small stones if present. There are simple cysts in both kidneys. There is no hydronephrosis or ureteral dilation. Stomach and bowel: The stomach contains fluid and contrast a small volume of gas. The lumen is mildly distended. No apparent wall thickening. The small bowel is nondilated. The colon is unremarkable. Appendix: The appendix is not visible. Intraperitoneal space: There is no free air or significant intraperitoneal free fluid. Vasculature: There is severe aortic atherosclerotic disease. Lymph nodes: There is no lymphadenopathy in the retroperitoneum, mesentery, pelvis or inguinal regions. Urinary bladder: The urinary bladder is unremarkable. Reproductive: There is nonspecific mild enlargement of the prostate gland. Bones/joints: There is severe multilevel degenerative disease in the lumbar spine. There is moderate degenerative disease of the right hip. Soft tissues: The abdominal wall is intact. CT/CT abdomen pelvis w con* [id number] IMPRESSION: 1. Mild gastric distension without evidence of gastritis. This finding is of uncertain significance. Possible gastroparesis or gastric outlet obstruction. Correlate with timing of last ingestion. No sign of small bowel obstruction. 2. Bilateral lower lung nodules measuring up to 10 mm, incompletely imaged on prior exams.For patients at low risk (minimal or absent history of smoking and of other known risk factors), recommend CT Chest at 3-6 months, then consider CT Chest at 18-24 months. For patients at high risk (history of smoking or of other known risk factors), recommend CT Chest at 3-6 months, then CT Chest at 18-24 months. (Reference: Ehsan) 3. Subcentimeter liver nodules, too small to fully characterize. In a low-risk patient, this is most likely to be benign and no further follow-up is recommended. In a high-risk patient, follow-up MRI in 3-6 months is recommended (or earlier if warranted by the patient's specific clinical circumstances). (Reference: Mackenzie) 4. Additional incidental findings above. COMMENTS: Consistent with the [employer]'s Incidental Findings Committee white paper (J Am Corby Radiol 2018): Any incidental renal lesion less than 1 cm or classified as too small to characterize, or any incidental cystic renal lesion characterized as simple-appearing, is likely benign. No follow-up imaging is recommended for these lesions per consensus recommendations based on imaging criteria. REFERENCES: 1. Ehsan H, et al. Guidelines for Management of Incidental Pulmonary Nodules Detected on CT Images: From the Fleischner Society 2017. Radiology. 2017;284(1):228-243. 2. Mackenzie BASS, et al. Management of Incidental Liver Lesions on CT: A White Paper of the ACR Incidental Findings Committee. J Am Corby Radiol. 2017;14(11):7795-8856.
[2022-11-25] MEDS: iohexol 350 mg/mL 500 mL Btl (per mL) IV (15:00)
== END 2022-11-25 16:08 | disposition home or self-care (01) ==
PROVIDERS: Emergency Provider Emergency Medicine; PCP Emergency Medicine Emergency Medical Services
DX: K31.84 Gastroparesis (principal); Z79.899 Other long term (current) drug therapy
CPT/HCPCS: 74177; 80053; 81003; 83690; 83735; 85025; 99285; Q9967

== ENCOUNTER 2023-02-03 12:45 | Outpatient (CLI) | payer OTHER, SELFPAY ==
--- NOTE | 2023-02-03 12:56 | US_ITS ---
WS: [id number] ULTRASOUND RENAL TECHNIQUE: Ultrasound examination of both kidneys. CLINICAL INFORMATION: ACUTE INJURY OF KIDNEY/CHRONIC KIDNEY DZ STAGE 2 COMPARISON: None. FINDINGS: Limited due to bowel gas. RIGHT: Right kidney is normal in size and appearance. Echogenicity: Normal. Cortical thickness: 0.4 cm; Normal. Hydronephrosis: None. Perinephric fluid: None. Right kidney measures: 8.1 cm x 4.2 cm x 4.1 cm. LEFT: Small LEFT simple cyst measuring 0.9 x 1.0 x 0.8 cm in the mid kidney Left kidney is normal in size and appearance. Echogenicity: Normal. Cortical thickness: 0.6 cm; Normal. Hydronephrosis: None. Perinephric fluid: None. Left kidney measures: 9.5 cm x 4.7 cm x 2.9 cm. Normal visualized aorta. Prevoid bladder volume 101 cc. Enlarged prostate measures 4.6 x 4.6 x 3.4 cm IMPRESSION: 1. No hydronephrosis in either kidney. 2. Bilateral renal cysts largest RIGHT mid kidney measuring 2.1 x 2.0 x 2.0 cm has a simple appearan ce 3. Enlarged prostate measures 4.6 x 4.6 x 3.4 cm. Recommend correlation PSA.
== END 2023-02-03 12:46 | disposition home or self-care (01) ==
LOC: RAD 12:46
PROVIDERS: PCP Emergency Medicine Emergency Medical Services; Visit Provider Internal Medicine Nephrology
DX: N17.9 Acute kidney failure, unspecified (principal); N18.2 Chronic kidney disease, stage 2 (mild); N28.1 Cyst of kidney, acquired
CPT/HCPCS: 76770

== ENCOUNTER 2023-05-06 06:00 | Outpatient (RCR) | payer OTHER, SELFPAY | END 2023-05-20 23:59 | disposition home or self-care (01) | LOC: APT 06:00 | PROVIDERS: PCP Emergency Medicine Emergency Medical Services; Visit Provider Emergency Medicine Emergency Medical Services | DX: H81.399 Other peripheral vertigo, unspecified ear (principal) | CPT/HCPCS: 97110; 97161; 97530 ==

== ENCOUNTER 2023-05-21 06:00 | Outpatient (RCR) | payer OTHER, SELFPAY | END 2023-06-18 23:59 | disposition home or self-care (01) | LOC: APT 06:00 | PROVIDERS: PCP Emergency Medicine Emergency Medical Services; Visit Provider Emergency Medicine Emergency Medical Services | DX: H81.399 Other peripheral vertigo, unspecified ear (principal) | CPT/HCPCS: 97110; 97112; 97530 ==

== ENCOUNTER 2023-06-02 13:25 | Outpatient (CLI) | payer OTHER, SELFPAY ==
--- NOTE | 2023-06-02 13:32 | CT_ITS ---
WS: [id number] CT chest w con* [id number] HISTORY: FOLLOW UP ON PULMONARY NODULES TECHNIQUE: Axial imaging performed through the thorax. Coronal and sagittal reformats are submitted. All CT scans at [facility] use at least one of these dose optimization techniques: automated exposure control; mA and/or kV adjustment per patient size (includes targeted exams where dose is mat ched to clinical indication); or iterative reconstruction. CONTRAST: Omnipaque 350; 100 mL IV. DLP: 233.26 mGy.cm COMPARISON: 11/25/2022 and 11/30/2019 Lungs and central airway: Mild hyperexpanded lungs. Previously described nodules at the lung bases moss ve significantly improved. There is residual tree-in-bud airspace disease in interstitial thickening. Greatest areas of thickening are adjacent to the fissures. Noncalcified nodule along the LEFT major fissure measures 7 mm. There is an additional fissural nodule on the LEFT measuring 3 mm. Linear opa cification in the RIGHT upper lobe is similar in appearance to the prior CT of 11/30/2019. Subsolid op acification along the RIGHT major fissure. Pleura: Normal. No pleural effusion. Heart and pericardium: Normal size heart with no pericardial effusion. Mediastinum and renny: Small mediastinal and hilar lymph nodes. The largest lymph node is 13 mm in the RIGHT suprahilar region. Vessels: Mild atherosclerosis aorta. Mild ectasia and dilatation of the ascending aorta to 3.8 cm. No rmal size pulmonary artery. Chest wall and lower neck: No soft tissue masses. Upper abdomen: Bilateral renal cysts. No adrenal mass. Osseous structures: Mild increase in thoracic kyphosis. Osteoporotic compression fractures at T7 and T11. IMPRESSION: 1. Improvement in the bilateral lower lobe pulmonary nodule since 11/25/2022. 2. There is additional scattered areas of interstitial thickening and scarring. 7 mm nodule along th e LEFT major fissure. Consider follow-up chest CT in 6 to 12 months if clinically thought necessary. 3. Small amount of fluid in the distal esophagus. 4. No mediastinal or hilar adenopathy. 5. Mildly ectatic thoracic aorta. 6. Osteoporotic mild compression fractures at T7 and T11.
[2023-06-02] MEDS: iohexol 350 mg/mL 500 mL Btl (per mL) IV (13:59)
== END 2023-06-02 13:26 | disposition home or self-care (01) ==
LOC: RAD 13:25
PROVIDERS: PCP Emergency Medicine Emergency Medical Services; Visit Provider Emergency Medicine Emergency Medical Services
DX: R91.8 Other nonspecific abnormal finding of lung field (principal); I77.810 Thoracic aortic ectasia
CPT/HCPCS: 71260; Q9967

== ENCOUNTER → 2023-08-05 09:09 | Outpatient (BNVA) | payer OTHER, SELFPAY | PROVIDERS: PCP Emergency Medicine Emergency Medical Services; Visit Provider Nurse Practitioner Family | DX: D48.5 Neoplasm of uncertain behavior of skin (principal); L57.0 Actinic keratosis; L81.4 Other melanin hyperpigmentation; D22.5 Melanocytic nevi of trunk; L57.8 Other skin changes due to chronic exposure to nonionizing radiation; Z85.828 Personal history of other malignant neoplasm of skin | CPT/HCPCS: 11102; 17004; 99213 ==

== ENCOUNTER → 2023-08-24 13:43 | Outpatient (BNVA) | payer MEDICARE, OTHER, SELFPAY | PROVIDERS: PCP Emergency Medicine Emergency Medical Services; Visit Provider Internal Medicine Nephrology | DX: N17.9 Acute kidney failure, unspecified (principal); E55.9 Vitamin D deficiency, unspecified; N18.9 Chronic kidney disease, unspecified | CPT/HCPCS: 80069; 82306; 82310; 83970; 85025 ==

== ENCOUNTER → 2023-09-01 09:09 | Outpatient (BNVA) | payer OTHER, SELFPAY | PROVIDERS: PCP Emergency Medicine Emergency Medical Services; Visit Provider Dermatology | DX: C44.391 Other specified malignant neoplasm of skin of nose (principal); L57.0 Actinic keratosis | CPT/HCPCS: 14060; 17000; 17311 ==

== ENCOUNTER 2023-12-22 13:23 | Emergency (ER) | payer OTHER, MEDICARE, SELFPAY ==
--- NOTE | 2023-12-22 13:24 | XR_ITS ---
WS: [id number] Examination: XR chest 1V portable [id number] Reason for Exam: cough Date: 12/22/2023 Comparison: 08/07/2021 Findings: The heart is not large. The mediastinum is not widened Lungs are hyperinflated. Chronic obstructive changes are present. There is basilar scarring. There is no pulmonary edema or large pleural effusion. There is no dense consolidation. XR/XR chest 1V portable [id number] IMPRESSION: Chronic changes are present without failure or new consolidation.
[2023-12-22 14:07] VITALS: BP 131/72; PULSE 103; TEMP 36.9; O2SAT 97; BMI 20.1
[2023-12-22 14:36] LABS: SARS Covid-2 Antigen negative (Negative)
--- NOTE | 2023-12-22 14:56 | W.ED.URI ---
HPI - URI/Sore Throat General: Chief Complaint: Upper Respiratory Infection Stated Complaint: Cough, Congestion Time Seen by Provider: 12/22/23 14:25 Source: patient Mode of arrival: ambulatory Limitations: no limitations History of Present Illness: Patient is a very nice youthful 88-year-old male here for complaints of a cough. Patient states he has had a chronic cough over the past 6 months or so. He states over the past 5 days it has seemed to worsen and now associated with rhinorrhea. He states he is not having any chest pain, shortness of breath, cough or difficulty breathing. He states cough is minimally productive with a small amount of yellow phlegm. Feels like cough is worse at night and keeping him up. He has been using dextromethorphan and feels like this helped somewhat. He is not running fevers. He otherwise feels well. He is not a smoker. MD elicited complaint: cough Onset (ago): day(s) Consistency: intermittent Severity: moderate Description of mucous: clear and yellow Able to tolerate fluids by mouth: Yes Exacerbating factors: nothing Relieving factors: nothing Associated symptoms: Reports no associated symptoms; Deny abdominal pain, chills, chest pain, diarrhea, ear or mastoid pain, fever(s), nausea, sinus pain or vomiting Treatments prior to arrival: none Related Data Home Medications Medication Instructions Recorded Confirmed calcium carbonate (Calcium 600) 600 mg PO DAILY@12 11/30/19 11/25/22 finasteride 5 mg tablet (Proscar) 5 mg PO BEDTIME 11/30/19 11/25/22 fluticasone propionate 50 1 spray intranasal BEDTIME 11/30/19 11/25/22 mcg/actuation nasal spray,suspension (Flonase Allergy Relief) ibuprofen 200 mg tablet 200 mg PO BEDTIME PRN Pain 11/30/19 11/25/22 latanoprost 0.005 % eye drops 1 drp ophthalmic (eye) BEDTIME 11/30/19 11/25/22 losartan 50 mg tablet 25 mg PO QAM 11/30/19 11/25/22 omega 2-uyk-jqj-fish oil 1,000 mg 1 cap PO DAILY@12 11/30/19 11/25/22 (120 mg-180 mg) capsule (Fish Oil) omeprazole 20 mg capsule,delayed 20 mg PO DAILY@11/30/19 11/25/22 release tamsulosin 0.4 mg capsule 0.8 mg PO BEDTIME 11/30/19 11/25/22 calcitonin (salmon) 200 1 spray intranasal (ALT) QAM 02/22/21 11/25/22 unit/actuation nasal spray multivitamin 1 tab PO DAILY@12 02/22/21 11/25/22 acetaminophen 500 mg tablet 500 mg PO BEDTIME PRN Pain 11/25/22 11/25/22 ammonium lactate 12 % topical cream 1 applic topical DAILY PRN unknown 11/25/22 11/25/22 agzgcmlynqz-nyd-pqqwyjirb-hrb 1 tab PO DAILY@12 11/25/22 11/25/22 149-hyalur 500 mg-500 mg-66.7 mg tablet (Hsfdzjjxxuu-Wbdaatchcnp-HCZ (with antiox)) ondansetron 4 mg disintegrating 4 mg PO Q6H PRN Nausea And Vomiting 11/25/22 11/25/22 tablet Previous Rx's Medication Instructions Recorded cane #1 ea 06/17/22 citalopram 20 mg tablet 20 mg PO DAILY 1 month #90 tabs 11/04/22 benzonatate 100 mg capsule 100 mg PO TID PRN cough #20 caps 12/22/23 Allergies Allergy/AdvReac Type Severity Reaction Status Date / Time No Known Allergies Allergy Verified 12/22/23 14:11 Review of Systems Const: Denies: fever(s), chills, body aches, fatigue or malaise ENMT: Reports: nasal discharge; Denies: throat pain, odynophagia, ear or mastoid pain or sinus pain Card: Denies: chest pain, palpitations, irregular heart rhythm, edema, lightheadedness, syncope or pre-syncope Resp: Denies: dyspnea GI: Denies: abdominal pain, nausea, vomiting or diarrhea Musc: Denies: neck pain, back pain, extremity pain, extremity swelling or joint pain Skin/Breast: Denies: rash Neuro: Denies: dizziness PFSH ED PFSH: Medical History History of nonmelanoma skin cancer Urinary retention BPH (benign prostatic hyperplasia) Nephrolithiasis Surgical History History of hernia repair History of appendectomy Family History Father , AT AGE 67 CAD (coronary artery disease) Mother , AT AGE 67 Cancer Social History Smoking and tobacco/nicotine status: never used tobacco/nicotine Alcohol intake: never Marital status: Single Current occupational status: retired Physical Exam Const: COMMON NORMALS: no acute distress, average body habitus, patient oriented x3, no limitations, healthy appearing, alert and well nourished GENERAL APPEARANCE: cooperative ORIENTATION/CONSCIOUSNESS: Yes awake, Yes oriented to person, Yes oriented to place and Yes oriented to time OTHER: very pleasant, vibrant 88 yo gentleman HENMT: COMMON NORMALS: normocephalic and atraumatic HEAD & SCALP: normal to inspection, normocephalic and atraumatic THROAT: posterior oropharynx normal Eye: GENERAL EYE: appearance normal, both eyes and all related structures Neck/C-Spine: COMMON NORMALS: no lymphadenopathy Resp: COMMON NORMALS: normal respiratory effort and clear to auscultation bilaterally AUSCULTATION: clear to auscultation bilaterally Cardio: COMMON NORMALS: regular rate and regular rhythm RATE: regular rate RHYTHM: regular rhythm Extremity: COMMON NORMALS: no clubbing, cyanosis or edema and no calf tenderness GENERAL: Yes normal exam except as noted Neuro: COMMON NORMALS: patient oriented x3, moves all extremities, no focal motor deficits, no sensory deficits noted and gait normal SENSORIUM/ORIENTATION: Yes alert, Yes oriented to person, Yes oriented to place and Yes oriented to time Skin: COMMON NORMALS: no rashes or lesions noted GENERAL SKIN EXAM: no rashes or lesions noted Course Vital Signs: Vital signs: Vital Signs Temperature 98.5 F 12/22/23 14:07 Pulse Rate 103 H 12/22/23 14:07 Blood Pressure 131/72 12/22/23 14:07 Pulse Oximetry 97 12/22/23 14:07 Oxygen Delivery Me thod Room Air 12/22/23 14:07 MDM - URI/Sore Throat Medical Decision Making Patient appears in no acute distress. His rapid COVID is negative. CXR is unremarkable. His main complaint is the cough that seems to keep him up at night. Discussed conservative therapies at home. Will attempt to try Bo Steiner to see if this helps. I would like him to follow[facility] 2 weeks if symptoms do not seem to be improving and for further evaluation of his chronic cough that he has had for 6+ months. I do not see any indication for antibiotics today. Return to ED precautions given. Medical Records I reviewed the patient's medical records. Lab Data I reviewed the patient's lab results. Radiology Impressions Chest X-Ray 12/22/23 13:24 IMPRESSION: Chronic changes are present without failure or new consolidation. Laboratory Results SARS-CoV-2 Ag (Rapid) negative (Negative) 12/22/23 14:15 All radiology interpretation(s) finalized by discharge Discharge Plan Discharge Patient Disposition: Home Clinical Impression: Chronic cough Condition: Stable Prescriptions: New benzonatate 100 mg capsule 100 mg PO TID PRN (Reason: cough) Qty: 20 0RF No Action (DME) cane Device See Rx Instructions .Route Qty: 1 0RF Rx Instructions: As directed citalopram 20 mg tablet 20 mg PO DAILY 30 Days Qty: 90 5RF Rx Instructions: stop taking ~ 2 weeks ago per pt losartan 50 mg Tablet 25 mg PO QAM latanoprost 0.005 % drops 1 drp ophthalmic (eye) BEDTIME Rx Instructions: both eyes calcium carbonate [Calcium 600] 600 mg calcium (1,500 mg) Tablet 600 mg PO DAILY@12 ibuprofen 200 mg Tablet 200 mg PO BEDTIME PRN (Reason: Pain) omeprazole 20 mg Capsule,Delayed Release(Dr/Ec) 20 mg PO DAILY@12 fluticasone propionate [Flonase Allergy Relief] 50 mcg/actuation [place],Suspension 1 spray INTRANASAL BEDTIME finasteride [Proscar] 5 mg Tablet 5 mg PO BEDTIME omega 9-lzp-siw-fish oil [Fish Oil] 1,000 mg (120 mg-180 mg) Capsule 1 cap PO DAILY@12 tamsulosin 0.4 mg capsule 0.8 mg PO BEDTIME multivitamin Tablet 1 tab PO DAILY@12 calcitonin (salmon) 200 unit/actuation [place],Non-Aerosol 1 spray INTRANASAL (ALT) QAM Tylenol Ex Str Rapid Release 500 mg Tablet 500 mg PO BEDTIME PRN (Reason: Pain) ondansetron 4 mg tablet,disintegrating 4 mg PO Q6H PRN (Reason: Nausea And Vomiting) Vcaimx-Evhrm-XRL (with antiox) 500-500-66.7 mg Tablet 1 tab PO DAILY@12 ammonium lactate 12 % cream 1 applic topical DAILY PRN (Reason: unknown) Rx Instructions: Apply neck down daily Discharge Orders: Discharge ED (Routine); Ordered 12/22/23 Ordered By: Halie Mariscal Referrals: Sarah Roberts [employer] [Primary Care Provider] - Activity Restrictions/Additional Instructions: As we discussed, I would [facility] 2 [facility] if cough does not begin to improve. You need to return to the emergency department for severe chest pain, shortness of breath, fever, difficulty breathing, coughing up blood, generally feeling worse or unwell, or any other concerns you may have. I hope you begin to feel better soon. 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
[2023-12-22 15:09] VITALS: BP 129/84; PULSE 83; O2SAT 94
== END 2023-12-22 15:11 | disposition home or self-care (01) ==
PROVIDERS: Emergency Medicine; Emergency Provider Physician Assistant; PCP Nurse Practitioner Family
DX: R05.3 Chronic cough (principal); Z11.52 Encounter for screening for COVID-19
CPT/HCPCS: 71045; 87426; 99284

== ENCOUNTER 2024-01-28 08:38 | Outpatient (CLI) | payer OTHER, SELFPAY ==
--- NOTE | 2024-01-28 08:43 | CT_ITS ---
WS: [id number] CT chest wo con [id number] HISTORY: FOLLOW UP ON ABNORMAL CXR TECHNIQUE: Axial imaging performed through the thorax. Coronal and sagittal reformats are submitted. All CT scans at [facility] use at least one of these dose optimization techniques: automated exposure control; mA and/or kV adjustment per patient size (includes targeted exams where dose is mat ched to clinical indication); or iterative reconstruction. CONTRAST: None DLP: 213.91 mGy.cm COMPARISON: Chest CT 06/02/2023, chest radiograph 12/22/2023 Lungs and central airway: Focal irregular scar and fibrosis in the pleura of the RIGHT apex. Similar to the study of 06/02/2023. No increasing consolidation. Mild tree-in-bud airspace disease in the RIGH T upper lobe with small reticular nodular opacifications. Similar findings in the RIGHT lower lobe an d posteriorly in the LEFT lower lobe. Additional dependent changes and nodules at the lung bases have progressed since the prior study. Ovoid 10 mm nodule abuts the LEFT fissure. Pleura: Normal. No pleural effusion. Heart and pericardium: Normal size heart with no pericardial effusion. Mediastinum and renny: Lymph nodes are difficult to evaluate without IV contrast. No large groups of l ymph nodes are identified. There are several small lymph nodes in the paratracheal region. These were also present on the prior study. Vessels: Ectatic atherosclerosis aorta with mild dilatation of 3.8 cm of the ascending aorta. Coronar y artery calcifications. Chest wall and lower neck: No soft tissue masses. Upper abdomen: Suprarenal aortic calcifications. Nonobstructing bilateral calcifications within each kidney. Osseous structures: Increase in the lumbar lordosis. T7 and T11 compression fractures. No acute fract ures. CT/CT chest wo con [id number] IMPRESSION: 1. Severe emphysema. 2. Stable pleural-based scar RIGHT upper lobe. 3. New areas of tree-in-bud airspace disease and scattered reticular nodular o pacifications. Likely representing mild endobronchial pneumonia. 4. No dense area of lobar consolidation. 5. No effusions. 6. Mildly ectatic atherosclerosis ascending thoracic aorta.
== END 2024-01-28 08:39 | disposition home or self-care (01) ==
LOC: RAD 08:39
PROVIDERS: PCP Nurse Practitioner Family; Visit Provider Nurse Practitioner Family
DX: J43.9 Emphysema, unspecified (principal); I70.0 Atherosclerosis of aorta
CPT/HCPCS: 71250

== ENCOUNTER 2024-01-31 19:25 | Inpatient (IN) | payer OTHER, MEDICARE, SELFPAY ==
[2024-01-31 19:28] VITALS: BP 151/69; PULSE 108; RESP 18; TEMP 37.3; O2SAT 94
--- NOTE | 2024-01-31 19:50 | CTR_ITS ---
PROCEDURE INFORMATION: Exam: CT Head Without Contrast Exam date and time: 01/31/2024 8:14 PM Age: 88 years old Clinical indication: Patient HX: C/O worsening general weakness. Multiple falls over last few weeks. ; Additional info: Gen weakness, falls TECHNIQUE: Imaging protocol: Computed tomography of the head without contrast. Radiation optimization: All CT scans at this facility use at least one of these dose optimization techniques: automated exposure control; mA and/or kV adjustment per patient size (includes targeted exams where dose is matched to clinical indication); or iterative reconstruction. COMPARISON: MR head wo con* [id number] 06/05/2022 9:47 AM RADIATION DOSE METRICS: Total DLP (mGy-cm): 1773.68 FINDINGS: Brain: No acute intracranial hemorrhage or mass effect. There is decreased attenuation in the periventricular white matter, likely from microvascular disease. No definite acute infarct by CT. MRI would be more sensitive/specific for detection, as clinically directed. Cerebral ventricles: Ventricle size is normal for age. Paranasal sinuses: Almost complete opacification of the ethmoid sinuses. Moderate mucosal thickening and fluid in the maxillary sinuses. Small amount of fluid in the frontal and sphenoid sinuses. Mastoid air cells: No significant acute finding. Bones: No definite acute skull fracture. Soft tissues: No significant acute finding. Vasculature: Vascular calcifications in the internal carotid and vertebral basilar systems. CT/CT head wo con* [id number] IMPRESSION: 1. No acute intracranial hemorrhage or mass effect. 2. Changes of microvascular disease. 3. No definite acute infarct by CT, see above. 4. Paranasal sinus findings as discussed above. 5. Other findings discussed above.
--- NOTE | 2024-01-31 19:50 | XRR_ITS ---
PROCEDURE INFORMATION: Exam: XR Chest Exam date and time: 01/31/2024 8:53 PM Age: 88 years old Clinical indication: Patient HX: Cough with general weakness; Additional info: Weakness cough TECHNIQUE: Imaging protocol: Radiologic exam of the chest. Views: 1 view. COMPARISON: CT chest wo con [id number] 01/28/2024 8:43 AM FINDINGS: Lungs: No CHF/pulmonary edema. Poor inspiration somewhat limits evaluation, especially of the lung bases. Mild bilateral lower lung opacities could represent atelectasis/scarring, pneumonitis is also possible. Please correlate clinically. Visible lungs otherwise appear essentially clear. Pleural spaces: No visible pneumothorax. No definite pleural fluid. Heart/Mediastinum: Mild cardiomegaly. Bones/joints: No significant acute finding. XR/XR chest 1V portable [id number] IMPRESSION: 1. Mild bilateral lower lung opacities, see above discussion. 2. Other findings discussed above.
--- NOTE | 2024-01-31 19:52 | ECG_ITS ---
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 Measurements Intervals [place] Rate: 104 P: 44 [place]: 164 QRS: -40 QRSD: 92 T: 78 QT: 318 QTc: 420 Interpretive Statements SINUS TACHYCARDIA POSSIBLE LEFT ATRIAL ENLARGEMENT [-0.1mV P-WAVE IN V1/V2] LEFT AXIS DEVIATION [QRS AXIS < -30] No previous ECG available for comparison Electronically Signed On 02-01-2024 14:09:24 CDT by Billy Jason M.D. [email or web address]
[2024-01-31] MEDS: sodium chloride 0.9% 1,000 ML 999 ML IV (20:24)
[2024-01-31 20:37] VITALS: PULSE 96; RESP 18; O2SAT 94
--- NOTE | 2024-01-31 20:41 | W.ED.WEAKNES ---
HPI - Weakness General: Chief complaint: Weakness Stated complaint: SOB Time Seen by Provider: 01/31/24 19:34 History of Present Illness: 88-year-old gentleman who has been generally weak, had a cough and fever. He states that he has been on 3 different antibiotics over the last 3 weeks or so. He was first seen in urgent care, told he did not have pneumonia, and has had 2 subsequent chest x-rays at the [facility] showing worsening pneumonia evidently. He states that his fever was up to 102 today. He has a history of chronic vertigo which he says he has been managing well, until he got sick. He had 2 falls today related to worsening vertigo which she says is because of his weakness. He was short of breath on EMS arrival. He received a breathing treatment with improvement in his shortness of breath. He is on room air. He does not use oxygen at home. He denies any other stroke symptoms such as language problems, focal weakness, etc. He has not been overly confused. [facility] ED PFSH: Medical History History of nonmelanoma skin cancer Urinary retention BPH (benign prostatic hyperplasia) Nephrolithiasis Surgical History History of hernia repair History of appendectomy Family History Father , AT AGE 67 CAD (coronary artery disease) Mother , AT AGE 67 Cancer Social History Smoking and tobacco/nicotine status: never used tobacco/nicotine Alcohol intake: never Marital status: Single Current occupational status: retired Physical Exam Const: GENERAL APPEARANCE: cooperative and frail appearing ORIENTATION/CONSCIOUSNESS: Yes awake, Yes oriented to person, Yes oriented to place and Yes oriented to time HENMT: COMMON NORMALS: normocephalic, atraumatic and Normal external nose present HEAD & SCALP: normocephalic and atraumatic FACE & SINUS: normal facial exam and face symmetric NOSE: Normal external nose present Eye: COMMON NORMALS: Equal, round and reactive pupils present and EOMs intact bilaterally PUPIL: Yes Equal, round and reactive pupils present Neck/C-Spine: GENERAL: Yes trachea midline Chest: CHEST: Yes Symmetrical chest wall rise Resp: COMMON NORMALS: normal respiratory effort, No retractions and clear to auscultation bilaterally AUSCULTATION: clear to auscultation bilaterally and diminished lung sounds Cardio: COMMON NORMALS: regular rate and regular rhythm RATE: regular rate RHYTHM: regular rhythm GI: COMMON NORMALS: Normal to inspection, nondistended, normoactive bowel sounds present Extremity: COMMON NORMALS: no pedal edema Neuro: RICHARD COMA SCALE: document GCS findings Richard coma scale eye opening: Spontaneous [place] coma scale verbal response: Orientated [place] coma scale motor response: Obey commands Richard coma scale total score: 15 SENSORIUM/ORIENTATION: Yes oriented to person, Yes oriented to place and Yes oriented to time SENSORY EXAM: Yes extremities (intact) Psych: COMMON NORMALS: speech normal SPEECH: Yes normal speech Skin: COMMON NORMALS: no rashes or lesions noted NARRATIVE SKIN EXAM: Ecchymosis to left elbow with an abrasion from fall. GENERAL SKIN EXAM: no rashes or lesions noted Course Vital Signs: Vital signs: Vital Signs Temperature 99.1 F 01/31/24 19:28 Pulse Rate 94 01/31/24 23:30 Respiratory Rate 20 H 01/31/24 23:10 Blood Pressure 133/61 01/31/24 23:30 Pulse Oximetry 95 01/31/24 23:30 Oxygen Delivery Me thod Nasal Cannula 01/31/24 23:30 Oxygen Flow Rate 2 01/31/24 23:30 MDM - Weakness Medical Decision Making 88-year-old gentleman with a consistent with cough. Temperature on arrival was 99.1. White blood cell count is 14.5. Hemoglobin 10.4. Creatinine 1.1. Chest x-ray shows mild bilateral lower lung infiltrates. Head CT done because of vertiginous symptoms, shows no acute findings. He does have some paranasal sinus disease.Due to the infiltrates, the patient was given Rocephin and Zithromax. During coughing spells, the patient sinks to mid 80s in terms of saturations. He does this with any activity as well. He is placed on 2 L here. Spoke with hospitalist. Have agreed to observe the patient. Recommendations from him are D-dimer, with chest CT as needed following. D-dimer is 17, so we will proceed with CTA of the chest. He will be admitted following Lab Data 01/31/24 20:32 01/31/24 20:32 Radiology Impressions Chest X-Ray 01/31/24 19:50 IMPRESSION: 1. Mild bilateral lower lung opacities, see above discussion. 2. Other findings discussed above. Head CT 01/31/24 19:50 IMPRESSION: 1. No acute intracranial hemorrhage or mass effect. 2. Changes of microvascular disease. 3. No definite acute infarct by CT, see above. 4. Paranasal sinus findings as discussed above. 5. Other findings discussed above. Laboratory Results WBC 14.52 10^3/uL (3.29-11.43) H 01/31/24 20:32 RBC 3.76 10^6/uL (3.85-5.65) L 01/31/24 20:32 Hgb 10.40 g/dL (11.27-16.99) L 01/31/24 20:32 Hct 32.7 % (37-53) L 01/31/24 20:32 MCV 87.0 fl (82-101) 01/31/24 20:32 MCH 27.7 pg (27-33) 01/31/24 20:32 MCHC 31.8 g/dL (30-55) 01/31/24 20:32 RDW 15.5 % (12.1-15.1) H 01/31/24 20:32 Plt Count 217 10^3/cmm (157-399) 01/31/24 20:32 MPV 9.6 fL (7.4-10.4) 01/31/24 20:32 Neut % (Auto) 92.6 % 01/31/24 20:32 Lymph % (Auto) 2.8 % 01/31/24 20:32 [place] % (Auto) 3.9 % 01/31/24 20:32 Eos % (Auto) 0.0 % 01/31/24 20:32 Baso % (Auto) 0.1 % 01/31/24 20:32 Neut # (Auto) 13.46 10^3/uL (1.8-7.7) H 01/31/24 20:32 Lymph # (Auto) 0.4 10^3/uL (0.8-4.8) L 01/31/24 20:32 [place] # (Auto) 0.6 10^3/uL (0.2-0.9) 01/31/24 20:32 Eos # (Auto) 0.0 10^3/uL (0.0-0.8) 01/31/24 20:32 Baso # (Auto) 0.0 10^3/uL (0.0-0.1) 01/31/24 20:32 Nucleated RBC % (auto) 0 % 01/31/24 20:32 Nucleated RBCs # 0.0 /100WBC 01/31/24 20:32 D-Dimer 17.16 ug/mLFEU (0-0.59) H 01/31/24 20:32 Sodium 132 mmol/L (136-145) L 01/31/24 20:32 Potassium 4.0 mmol/L (3.5-5.1) 01/31/24 20:32 Chloride 99 mmol/L (98-107) 01/31/24 20:32 Carbon Dioxide 21 mmol/L (22-29) L 01/31/24 20:32 Anion Gap 16.0 (5-19) 01/31/24 20:32 BUN 17 mg/dL (8-23) 01/31/24 20:32 Creatinine 1.1 mg/dL (0.7-1.2) 01/31/24 20:32 GFR Calculation Not Reportable 01/31/24 20:32 Glucose 115 mg/dL (65-115) 01/31/24 20:32 Calculated Osmolality 276 mOsm/kg (285-295) L 01/31/24 20:32 Lactic Acid 1.4 mmol/L (0.5-2.2) 01/31/24 20:32 Calcium 8.5 mg/dL (8.5-10.5) 01/31/24 20:32 Magnesium 1.6 mg/dL (1.7-2.3) L 01/31/24 20:32 Total Bilirubin 0.6 mg/dL (0.15-1.2) 01/31/24 20:32 AST 23 U/L (0-40) 01/31/24 20:32 ALT 16 U/L (0-41) 01/31/24 20:32 Alkaline Phosphatase 89 U/L (40-130) 01/31/24 20:32 Troponin T Baseline 53 ng/L (0-15) H 01/31/24 20:32 Troponin T 120 Minute 54.41 ng/L (0-15) H 01/31/24 22:05 Delta Troponin T 1.41 ABS# (0-10) 01/31/24 22:05 C-Reactive Protein 114.3 mg/L (0.0-4.9) H 01/31/24 20:32 NT-Pro-B Natriuret Pep 940 pg/mL (0-450) H 01/31/24 20: Total Protein 6.6 g/dL (6.6-8.7) 01/31/24 20: Albumin 3.7 g/dL (3.5-5.2) 01/31/24 20: Globulin 2.9 g/dL (1.3-4.6) 01/31/24 20: Urine Color Yellow (Yellow) 01/31/24 20: Urine Appearance Clear (CLEAR) 01/31/24 20: Urine pH 6.0 (5-7) 01/31/24 20: Ur Specific [place] 1.016 (1.005-1.030) 01/31/24 20: Urine Protein 1+ (Negative) A 01/31/24 20: Urine Glucose (UA) Negative (Normal) 01/31/24: Urine Ketones Negative (Negative) 01/31/24: Urine Blood 1+ (Negative) A 01/31/24 20: Urine Nitrate Negative (Negative) 01/31/24 20: Urine Bilirubin Negative (Negative) 01/31/24 20: Urine Urobilinogen 0.2 mg/dL (Negative) 01/31/24 20: Ur Leukocyte Esterase Negative (Negative) 01/31/24 20: Urine RBC 6-10 /hpf (0-2) 01/31/24 20: Urine WBC 0-5 /hpf (0-5) 01/31/24 20: Ur Squamous Epith Cells 0-5 /hpf (0-5) 01/31/24 20: Amorphous Sediment Not Reportable 01/31/24 20: Urine Bacteria None seen /hpf (NONE) 01/31/24 20: Hyaline Casts 1.21 /lpf 01/31/24 20: Coronavirus (PCR) Negative (Negative) 01/31/24 20:31 Influenza A (PCR) Negative (Negative) 01/31/24 20:31 Influenza Type B (PCR) Negative (Negative) 01/31/24 20:31 RSV (PCR) Negative (Negative) 01/31/24 20:31 All radiology interpretation(s) finalized by discharge Discharge Plan Discharge Patient Disposition: Placed in Observation Admit Provider: Benoit Zhu Clinical Impression: Pneumonia, Chest pain Condition: Stable Coding Level of Care Code ED Fabrication Department Supervisor for Chg Fwd Related Data Home Medications Medication Instructions Recorded Confirmed calcium carbonate (Calcium 600) 600 mg PO DAILY@12 11/30/19 11/25/22 finasteride 5 mg tablet (Proscar) 5 mg PO BEDTIME 11/30/19 11/25/22 fluticasone propionate 50 1 spray intranasal BEDTIME 11/30/19 11/25/22 mcg/actuation nasal spray,suspension (Flonase Allergy Relief) ibuprofen 200 mg tablet 200 mg PO BEDTIME PRN Pain 11/30/19 11/25/22 latanoprost 0.005 % eye drops 1 drp ophthalmic (eye) BEDTIME 11/30/19 11/25/22 losartan 50 mg tablet 25 mg PO QAM 11/30/19 11/25/22 omega 2-ujj-eos-fish oil 1,000 mg 1 cap PO DAILY@12 11/30/19 11/25/22 (120 mg-180 mg) capsule (Fish Oil) omeprazole 20 mg capsule,delayed 20 mg PO DAILY@12 11/30/19 11/25/22 release tamsulosin 0.4 mg capsule 0.8 mg PO BEDTIME 11/30/19 11/25/22 calcitonin (salmon) 200 1 spray intranasal (ALT) QAM 02/22/21 11/25/22 unit/actuation nasal spray multivitamin 1 tab PO DAILY@12 02/22/21 11/25/22 acetaminophen 500 mg tablet 500 mg PO BEDTIME PRN Pain 11/25/22 11/25/22 ammonium lactate 12 % topical cream 1 applic topical DAILY PRN unknown 11/25/22 11/25/22 xqckmfzsace-jyv-hkticzbvf-hrb 1 tab PO DAILY@12 11/25/22 11/25/22 149-hyalur 500 mg-500 mg-66.7 mg tablet (Waibpbjalrs-Tfoexmdtvda-UYF (with antiox)) ondansetron 4 mg disintegrating 4 mg PO Q6H PRN Nausea And Vomiting 11/25/22 11/25/22 tablet Previous Rx's Medication Instructions Recorded cane #1 ea 06/17/22 citalopram 20 mg tablet 20 mg PO DAILY 1 month #90 tabs 11/04/22 benzonatate 100 mg capsule 100 mg PO TID PRN cough #20 caps 12/22/23 Allergies Allergy/AdvReac Type Severity Reaction Status Date / Time No Known Allergies Allergy Verified 01/31/24 19:45
[2024-01-31 20:43] LABS: Basophils % 0.1 %; Hematocrit 32.7 % (37-53); Lymphocytes # 0.4 10^3/uL (0.8-4.8); Lymphocytes % 2.8 %; Mean Corpuscular HGB Conc 31.8 g/dL (30-55); Mean Corpuscular Hemoglobin 27.7 pg (27-33); Mean Platelet Volume 9.6 fL (7.4-10.4); Monocytes # 0.6 10^3/uL (0.2-0.9); Monocytes % 3.9 %; Neutrophils # 13.46 10^3/uL (1.8-7.7); Neutrophils % 92.6 %; Nucleated Red Blood Cells % 0 %; Platelet Count 217 10^3/cmm (157-399); Red Blood Count 3.76 10^6/uL (3.85-5.65); Red Cell Distribution Width 15.5 % (12.1-15.1); White Blood Count 14.52 10^3/uL (3.29-11.43)
[2024-01-31 21:03] LABS: Lactic Sepsis W/Reflex 1.4 mmol/L (0.5-2.2)
[2024-01-31 21:05] LABS: Troponin(5th) Baseline 53 ng/L (0-15)
[2024-01-31 21:13] LABS: Alanine Aminotransferase 16 U/L (0-41); Albumin Level 3.7 g/dL (3.5-5.2); Alkaline Phosphatase 89 U/L (40-130); Aspartate Amino Transferase 23 U/L (0-40); Blood Urea Nitrogen 17 mg/dL (8-23); C Reactive Protein 114.3 mg/L (0.0-4.9); Calcium 8.5 mg/dL (8.5-10.5); Carbon Dioxide 21 mmol/L (22-29); Chloride 99 mmol/L (98-107); Globulin 2.9 g/dL (1.3-4.6); Glucose 115 mg/dL (65-115); Magnesium 1.6 mg/dL (1.7-2.3); NT Pro B Type Natriuretic Pept 940 pg/mL (0-450); Osmolality Calculated 276 mOsm/kg (285-295); Sodium 132 mmol/L (136-145); Total Bilirubin 0.6 mg/dL (0.15-1.2); Total Protein 6.6 g/dL (6.6-8.7)
[2024-01-31 21:18] LABS: Bilirubin Urine Negative (Negative); Blood Urine 1+ (Negative); Glucose Urine UA Negative (Normal); Ketones Urine Negative (Negative); Leukocyte Esterase Urine Negative (Negative); Nitrate Urine Negative (Negative); Protein Urine 1+ (Negative); Specific Gravity, Urine 1.016 (1.005-1.030); Urine Appearance Clear (CLEAR); Urine Color Yellow (Yellow); Urobilinogen Urine 0.2 mg/dL (Negative)
[2024-01-31 21:20] LABS: Add Urine Microscopic? YES; Bacteria Urine None Seen /hpf; Hyaline Casts Urine 1.21 /lpf; Squamous Epithelial Cell Urine 0-5 /hpf (0-5); WBC Urine 0-5 /hpf (0-5)
[2024-01-31 21:21] VITALS: BP 140/64; PULSE 96; RESP 16; O2SAT 92
[2024-01-31 21:53] LABS: Covid PCR NEGATIVE (Negative); Influenza A NEGATIVE (Negative); Influenza B NEGATIVE (Negative); Respiratory Syncytial Virus Ce NEGATIVE (Negative)
--- NOTE | 2024-01-31 21:55 | ECG_ITS ---
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 Measurements Intervals [place] Rate: 100 P: 60 AR: 194 QRS: -33 QRSD: 86 T: 71 QT: 344 QTc: 445 Interpretive Statements SINUS TACHYCARDIA WITH OCCASIONAL ECTOPIC PREMATURE COMPLEXES LEFT AXIS DEVIATION [QRS AXIS < -30] Compared to ECG 01/31/2024 19:35:57 No significant changes Electronically Signed On 02-01-2024 14:15:19 CDT by Billy Jason M.D. [email or web address]
[2024-01-31] MEDS: cefTRIAXone 1,000 mg SDV 1000 MG IVP (22:03)
[2024-01-31] MEDS: azithromycin 500 MG in sodium chloride 0.9% 250 ML 250 MG IV (22:03)
[2024-01-31 22:26] LABS: Troponin 5 2HR 54.41 ng/L (0-15); Troponin 5 2HR Delta 1.41 ABS# (0-10)
[2024-01-31] MEDS: guaiFENesin-codeine UDC 10 mL 5 ML PO (23:06)
[2024-01-31 23:10] VITALS: BP 131/82; PULSE 98; RESP 20; O2SAT 93
[2024-01-31 23:30] VITALS: BP 133/61; PULSE 94; O2SAT 95
[2024-01-31 23:48] LABS: D Dimer 17.16 ug/mLFEU (0-0.59)
--- NOTE | 2024-01-31 23:50 | CTR_ITS ---
PROCEDURE INFORMATION: Exam: CTA Chest With Contrast Exam date and time: 02/01/2024 12:24 AM Age: 88 years old Clinical indication: Abnormal findings; Abnormal diagnostic tests; Elevated d-dimer; Cough and shortness of breath; Patient HX: Cough with SOB. Dimer 17. ; Additional info: Chest pain TECHNIQUE: Imaging protocol: Computed tomographic angiography of the chest with contrast. Exam focused on the arteries. 3D rendering (Not supervised by radiologist): MIP and/or 3D reconstructed images were created by the technologist. Radiation optimization: All CT scans at this facility use at least one of these dose optimization techniques: automated exposure control; mA and/or kV adjustment per patient size (includes targeted exams where dose is matched to clinical indication); or iterative reconstruction. Contrast material: OMNI 350; Contrast volume: 60 ml; Contrast route: INTRAVENOUS (IV); COMPARISON: CT chest wo con [id number] 01/28/2024 8:43 AM RADIATION DOSE METRICS: Total DLP (mGy-cm): 243.34 FINDINGS: Pulmonary arteries: No detectable pulmonary embolus. Aorta: Dilated ascending aorta measuring 4 cm diameter, similar to recent exam. Lungs: New multifocal infiltrates predominantly in bilateral lower lobes compared to 01/28/2024. Diffuse peribronchial thickening and scattered foci of endobronchial plugging are noted in both lower lobes. Mild bronchiectasis. Pleural spaces: No pneumothorax. No pleural effusion. Heart: No pericardial effusion. Lymph nodes: No new mediastinal or new hilar adenopathy compared to recent exam. Hilar lymph nodes containing granulomatous calcifications are noted. Spleen: Granulomatous calcifications within the spleen. Bones/joints: No new osseous abnormality compared to the recent exam. Midthoracic vertebral compression deformity is again evident. Soft tissues: Other than stated elsewhere, no acute abnormality. CT/CT angio chest PE protcl [id number] IMPRESSION: 1. No detectable pulmonary embolus. 2. Significant worsening of pulmonary infiltrates and endobronchial plugging compared to 01/28/2024. Consider aspiration and/or infection. 3. Chronic bronchiectasis. Prior granulomatous disease.
[2024-01-31] MEDS: haloperidol inj 5 mg/mL INJ 1 mL 2 MG IVP (23:51)
[2024-02-01] VITALS (10 sets, daily range): BP systolic 135–170; BP diastolic 63–86; PULSE 85–101; RESP 16–20; TEMP 36.7–37.2; O2SAT 93–96; BMI 19.3
--- NOTE | 2024-02-01 00:26 | P.HP_ITS ---
Providers/Chief Complaint 2 Admitting Physician: Benoit Zhu Primary Care Provider: Sarah Roberts APRN Chief Complaint: SOB History of Present Illness Pleasant 88-year-old gentleman who has been dealing with cough for over a months duration, has been on different antibiotic courses including amoxicillin, doxycycline, Augmentin and Levaquin as well as steroid Dosepak with methylprednisolone. Also had a prescription for Tessalon Perles, fluticasone. Hydroxyzine. He still having productive cough, he feels like there is phlegm there which comes up about half-way but he cannot get it out. He spiked a fever 102 Fahrenheit last night bringing him to the ER. Here temp 99.1. Leukocytosis 14.52, neutrophilic, 13.46. Some lymphopenia 0.4. Some paranasal sinusitis noted on CT of the head with moderate mucosal thickening and fluid in the maxillary sinuses. Small mount of fluid in the frontal and sphenoid sinuses. Chest x-ray with bilateral lower lung opacities. She has grown generally weak, has lost weight with poor appetite. Denies any drenching night sweats. Denies exposure to anyone with TB or incarceration, or personal TB history. Review of Systems 2 Const: Reports: fever(s), change in appetite, change in weight, fatigue and malaise ENMT: Denies: throat pain or ear or mastoid pain Card: Denies: chest pain, edema, pre-syncope or dyspnea on exertion Resp: Reports: dyspnea and productive cough; Denies: change in phlegm color or hemoptysis GI: Denies: abdominal pain, nausea, vomiting, diarrhea, constipation, hematochezia or melena : Denies: flank pain, difficulty urinating, urinary frequency or hematuria Musc: Denies: back pain, joint swelling or joint redness Skin/Breast: Denies: rash or new lesions Neuro: Denies: headache(s) or confusion Medications/Allergies Home Medications Medication Instructions Recorded Confirmed Last Taken Type calcium carbonate (Calcium 600) 600 mg PO DAILY@12 11/30/19 11/25/22 11/25/22 History finasteride 5 mg tablet (Proscar) 5 mg PO BEDTIME 11/30/19 11/25/22 11/24/22 History fluticasone propionate 50 1 spray intranasal BEDTIME 08/04/0811/25/22 11/24/22 History mcg/actuation nasal spray,suspension (Flonase Allergy Relief) ibuprofen 200 mg tablet 200 mg PO BEDTIME PRN Pain 11/30/19 11/25/22 11/21/20 History latanoprost 0.005 % eye drops 1 drp ophthalmic (eye) BEDTIME 11/30/19 11/25/22 11/24/22 History losartan 50 mg tablet 25 mg PO QAM 11/30/19 11/25/22 11/25/22 History omega 2-xhx-hjm-fish oil 1,000 mg 1 cap PO DAILY@12 11/30/19 11/25/22 11/25/22 History (120 mg-180 mg) capsule (Fish Oil) omeprazole 20 mg capsule,delayed 20 mg PO DAILY@12 11/30/19 11/25/22 11/25/22 History release tamsulosin 0.4 mg capsule 0.8 mg PO BEDTIME 11/30/19 11/25/22 11/24/22 History calcitonin (salmon) 200 1 spray intranasal (ALT) QA 02/22/21 11/25/22 11/25/22 History unit/actuation nasal spray right nostril multivitamin 1 tab PO DAILY@12 02/22/21 11/25/22 11/25/22 History cane #1 ea 06/17/22 11/25/22 Unknown Rx acetaminophen 500 mg tablet 500 mg PO BEDTIME PRN Pain 11/25/22 11/25/22 Unknown History ammonium lactate 12 % topical cream 1 applic topical DAILY PRN unknown 11/25/22 11/25/22 Unknown History ondansetron 4 mg disintegrating 4 mg PO Q6H PRN Nausea And Vomiting 11/25/22 11/25/22 1 Week Ago History tablet ~11/18/22 albuterol sulfate 90 mcg/actuation inhalation 02/01/24 02/01/24 Unknown History aerosol inhaler hydroxyzine HCl 25 mg tablet 25 mg PO PRN PRN Insomnia 02/01/24 02/01/24 Unknown History ipratropium 0.5 mg-albuterol 3 mg 3 ml inhalation QID 02/01/24 02/01/24 01/31/24 History (2.5 mg base)/3 mL nebulization soln Allergies Allergy/AdvReac Type Severity Reaction Status Date / Time No Known Allergies Allergy Verified 01/31/24 19:45 PFSH Acute 2 PFSH: Medical History History of nonmelanoma skin cancer Urinary retention BPH (benign prostatic hyperplasia) Nephrolithiasis Surgical History History of hernia repair History of appendectomy Family History Father , AT AGE 67 CAD (coronary artery disease) Mother , AT AGE 67 Cancer Social History Smoking and tobacco/nicotine status: never used tobacco/nicotine Alcohol intake: never Marital status: Single Current occupational status: retired Vitals/I&O/Wt Last Vital Signs Temp 99.1 F 01/31/24 19:28 Pulse 94 01/31/24 23:30 Resp 20 H 01/31/24 23:10 BP 133/61 01/31/24 23:30 Pulse Ox 95 01/31/24 23:30 O2 Del Method Nasal Cannula 01/31/24 23:30 O2 Flow Rate 2 01/31/24 23:30 01/31/24 01/31/24 02/01/24 14:59 22:59 06:59 Intake Total 1000 / 1000 250 / 1250 Balance 1000 / 1000 250 / 1250 Physical Exam 2 Const: COMMON NORMALS: patient oriented x3 and alert GENERAL APPEARANCE: c ooperative and frail appearing ORIENTATION/CONSCIOUSNESS: Yes awake HENMT: COMMON NORMALS: oropharynx normal Neck/C-Spine: COMMON NORMALS: no JVD Resp: AUSCULTATION: rhonchi Cardio: COMMON NORMALS: no JVD, regular rhythm, S1 normal heart sound present, S2 normal heart sound present and No murmurs present (Cardio) RHYTHM: regular rhythm HEART SOUNDS: S1 normal heart sound present and S2 normal heart sound present GI: COMMON NORMALS: Normal to inspection, nondistended, normoactive bowel sounds present, Soft to palpation and non-tender PALPATION: Yes Soft to palpation Extremity: COMMON NORMALS: no joint enlargement and no pedal edema Neuro: COMMON NORMALS: patient oriented x3 and moves all extremities S ENSORIUM/ORIENTATION: Yes alert Skin: COMMON NORMALS: no rashes or lesions noted GENERAL SKIN EXAM: no rashes or lesions noted OTHER: Thin, fragile skin. Data 01/31/24 20:32 01/31/24 20:32 Micro: Microbiology 01/31/24 20:32 Blood Culture - Preliminary Blood SPECIMEN COLLECTED 01/31/24 20:33 Blood Culture - Preliminary Blood SPECIMEN COLLECTED A&P Assessment and plan (1) Persistent pneumonia: Has had protracted cough for over a month and possibly longer, recently with nonresolving pneumonia with fever 102 Fahrenheit at home last night, persistent productive cough, feels like sputum comes up about half-way but cannot bring it up, mild bilateral lower lung opacities. Respiratory 22. Sinus tachycardia 98. Persistent nonresolving pneumonia is associated also with significant generalized weakness, physical deconditioning, during my visit he has trouble scooting up in bed by himself, with appetite, weight loss. Reviewed vitals, CBC, CMP, magnesium, troponin, CRP, NT proBNP, UA, COVID, influenza, RSV PCR, chest x-ray, head CT, EKG on my titration with sinus rhythm, without evidence of ischemia, pending official read. Reviewed ER documentation and aortic pressures from prior visit in December, discussed with ER provider. D-dimer is requested, reviewed, noted elevated 17.16. CTA has been requested and pending. Unclear cause of persistent pneumonia with failed outpatient treatment. On review of noncontrast CT done on January 27 is noted to have severe emphysema, stable pleural-based scar right upper lobe, new areas of tree-in-bud airspace disease and scattered reticular nodular opacifications. Likely representing mild endobronchial pneumonia. No dense area of lobar consolidation. No effusions. Mild ectatic atherosclerotic ascending thoracic aorta. With significant elevated D-dimer assess CTA to assess for possibility of contributory PE. Certainly if his edema and undiagnosed COPD may be contributing, although with endobronchial pneumonia, and he also on further questioning reports that his cough is worse when he is lying down, additionally on review of chest CT from 06/02 noted small amount of fluid in the distal esophagus, may have symptomatic reflux causing recurrent chemical pneumonitis with aspiration pneumonia, versus oropharyngeal dysphagia causing recurrent aspiration contributing to same. This may benefit from further assessment, additionally he denies exposure to TB, never incarcerated, no drenching night sweats, has had poor appetite and weight loss likely due to the current condition. CRP is elevated. Will obtain QuantiFERON gold, will start collection of sputum for AFB with RT induced sputum every 8 hours x 3, empirically on airborne isolation for now although suspicion for TB is lower. Will also request induction for fungal culture. Blood culture has been collected, follow-up. Additionally obtain modified barium swallow, start dysphagia diet for now empirically, start PPI. Elevate head of bed. NT-proBNP elevated at 950, however, may be related to lung disease rather than the heart. He otherwise is not exhibiting signs of decompensated congestive heart failure. With protracted symptoms, cough, dyspnea, will assess echocardiogram to assess for any contributory valvular heart disease, last echo in 2021 with normal ejection fraction, mild mitral regurgitation, assess for possible progression. Oxygen support as needed. Collect sputum culture, collect urine bacterial antigens, urine Legionella antigen, MRSA PCR. With possibility of resistant organism not responding to antibiotic treatment so far with amoxicillin, doxycycline, Augmentin, Levaquin, will empirically cover with vancomycin, with possible aspiration pneumonia responding to the above well also Zosyn. Monitor for risk of acute kidney injury with the antibiotic combination. Monitor oxygenation. Eosinophils are not elevated. Flutter valve, incentive parameter. Mucinex. DuoNebs. He will benefit from subsequent follow-up with pulmonology. Additionally with maxillary and other sinusitis, consideration of persistent postnasal drip contributing to recurrent pulmonary symptoms. Continue intranasal steroids. Has received a course of Medrol Dosepak. Please refer for follow-up with ENT. (2) Chronic cough: As above (3) Shortness of breath: As above (4) Generalized weakness: As above. Would benefit from rehabilitation. (5) Physical deconditioning: Further assess and manage possible underlying causes as above. PT assessment. Case management consultation. Would benefit from rehabilitation. (6) Elevated d-dimer: Additional assessment with CTA. Will obtain lower extremity duplex to assess for DVT. (7) Hypomagnesemia: Replace magnesium. Recheck level. (8) Elevated brain natriuretic peptide (BNP) level: Additional assessment with echo. Prior mitral regurgitation which was mild, assess for severe disease could possibly contribute to his chronic cough and dyspnea. Possibly related to chronic pulmonary issue. (9) Elevated C-reactive protein (CRP): Suspect may be related to his chronic pulmonary issues above. Will need follow- up. Plan Past lacunar CVA Cervical spinal stenosis Anxiety BPH: Continue Flomax Other medical problems Requesting to confirm home medications, please review and resume as appropriate once they are available. Attestations 2 Medical Necessity Statement*: Place in observation for additional assessment management of persistent pneumonia with failed outpatient treatment, further assessment of etiology, assessment of possible aspiration, atypical causes including mycobacteria, in a gentleman of advanced age. and High MDM includes amount and/or complexity of data reviewed/ordered [ previous or external records, resulted lab(s)/test(s), ordered lab(s)/test(s), independent test interpretation and other healthcare professional discussion] and described risk of complication, morbidity or mortality of management as documented Diagnoses Persistent pneumonia J18.9 Chronic cough R05.3 Shortness of breath R06.02 Generalized weakness R53.1 Physical deconditioning R53.81 Elevated d-dimer R79.89 Hypomagnesemia E83.42 Elevated brain natriuretic peptide (BNP) level R79.89 Elevated C-reactive protein (CRP) R79.82
[2024-02-01] MEDS: iohexol 350 mg/mL 500 mL Btl (per mL) IV (00:34)
--- NOTE | 2024-02-01 01:26 | USCV_ITS ---
Yusuf Hayes Age: 88 Gender: M : 1935 Exam Date: 02/01/2024 13:04 Ordering Phys: Benoit Zhu MD Technologist: Exam Location: [facility] [place] Indication: post mi cath BP: 130 / 76 HR: 248 Rhythm: Sinus Technical Quality: Adequate MEASUREMENTS (Male / Female) Normal Values 2D ECHO LV Diastolic Diameter PLAX 3.6 cm 4.2 - 5.9 / 3.9 - 5.3 cm IVS Diastolic Thickness 1.1 cm 0.6 - 1.0 / 0.6 - 0.9 cm IVS Systolic Thickness 1.5 cm LVPW Diastolic Thickness 1.1 cm 0.6 - 1.0 / 0.6 - 0.9 cm LVPW Systolic Thickness 1.3 cm LVOT Diameter 1.9 cm LV Ejection Fraction 2D Teich 66.2 % LV Ejection Fraction MOD 4C 50.3 % LV Ejection Fraction MOD 2C 63.1 % LV Ejection Fraction 2C AL 64.2 % LA Diameter 3.0 cm RA Systolic Volume 4C AL 35.8 ml RA Systolic Volume 4C MOD 34.8 ml Aorta at Sinotubular Diameter 3.2 cm M-MODE LA Ao Ratio MM 1.1 AV Cusp Separation MM 1.8 cm DOPPLER AV Peak Velocity 90.0 cm/s LVOT Peak Velocity 104.0 cm/s AV Area Cont Eq vti 4.0 cm squared AV Area Cont Eq pk 3.3 cm squared MV Peak Velocity 105.0 cm/s MV Area PHT 3.7 cm squared Mitral E to A Ratio 1.0 TR Peak Velocity 252.0 cm/s TR Peak Gradient 25.4 mmHg TV Peak E Velocity 114.0 cm/s Right Atrial Pressure 3.0 mmHg Pulmonary Artery Systolic Pressu 28.4 mmHg PV Peak Velocity 117.0 cm/s FINDINGS Left Ventricle Normal left ventricular size, systolic function and wall thickness, with no regional wall motion abnormalities. Left ventricular ejection fraction is estimated at 60%. Grade I/IV diastolic dysfunction (abnormal relaxation filling pattern), normal to mildly elevated filling pressures. Right Ventricle The right ventricle is normal in size and function. Right Atrium The right atrium is normal in size. Left Atrium The left atrium is normal in size. Mitral Valve Structurally normal mitral valve without significant stenosis or prolapse. There is no mitral regurgitation. Aortic Valve Structurally normal aortic valve without significant sclerosis or stenosis. There is trace aortic regurgitation. Tricuspid Valve Structurally normal tricuspid valve without significant stenosis or regurgitation. Pulmonary artery systolic pressure is normal. Pulmonic Valve Structurally normal pulmonic valve without significant stenosis. There is no pulmonic regurgitation. Pericardium Normal pericardium without effusion. Aorta Normal ascending aorta dimension. IVC The inferior vena cava appears normal. CONCLUSIONS Normal left ventricular size, systolic function and wall thickness, with no regional wall motion abnormalities. Left ventricular ejection fraction is estimated at 60%. Grade I/IV diastolic dysfunction (abnormal relaxation filling pattern), normal to mildly elevated filling pressures. There is trace aortic valve regurgitation. There is no pericardial effusion. Pulmonary artery systolic pressure is within normal limits. Right atrial pressure is around 5 mm of mercury. Tracy Vera MD (Electronically Signed) Final Date: 01 February 2024 14:20 S
--- NOTE | 2024-02-01 01:34 | USCV_ITS ---
Yusuf Hayes Age: 88 Gender: M : 1935 Exam Date: 02/01/2024 09:02 Ordering Phys: Benoit Zhu MD Technologist: JADIEL [place]am [place] [facility] [place]ication: Stasis HISTORY: Stasis PROCEDURES: Venous duplex imaging was performed in bilateral lower extremities. The following venous structures were evaluated: common femoral vein, profunda vein, proximal portion of the greater saphenous vein, superficial femoral vein, and the popliteal vein. In addition, the posterior tibial and peroneal trunk were evaluated. FINDINGS: Normal 2-D Doppler and augmentation and compressibility throughout the lower extremity venous structures. Additional imaging through the proximal calf veins also reveals no thrombus. Limited evaluation of the greater saphenous vein is patent with no thrombus. CONCLUSIONS No DVT bilateral lower extremities. Dr. Gwen Esposito DO (Electronically Signed) Final Date: 01 February 2024 09:39 S
--- NOTE | 2024-02-01 01:52 | ECG_ITS ---
[email or web address] Test Date: 2024-02-01 Pat Name: Yusuf Hayes Department: Room: 254 Gender: Male Tube Station Attendant: : 1935 Requested By: Tobias Laguerre Order Number: [id number] Casanova MD: Billy Jason M.D. Measurements Intervals [place] Rate: 87 P: 63 NE: 193 QRS: -24 QRSD: 84 T: 73 QT: 354 QTc: 428 Interpretive Statements SINUS RHYTHM BORDERLINE LEFT AXIS DEVIATION [QRS AXIS < -20] Compared to ECG 01/31/2024 21:55:29 Sinus tachycardia no longer present Electronically Signed On 02-01-2024 14:14:16 CDT by Billy Jason M.D. [id number]
[2024-02-01] MEDS: enoxaparin 40 mg/0.4 mL Syringe SUBCUT (01:53)
[2024-02-01] MEDS: pantoprazole DR 40 mg Tablet PO ×3 (01:54→18:07)
[2024-02-01] MEDS: vancomycin 1,000 MG in sodium chloride 0.9% 250 ML 250 MG IV (01:54)
[2024-02-01 02:21] LABS: Troponin 5 6HR 60.22 ng/L (0-15); Troponin 5 6HR Delta 7.22 ng/L (0-12)
[2024-02-01 03:20] LABS: MRSA PCR OZH (swab) NOT DETECTED (Negative)
[2024-02-01] MEDS: piperacillin-tazobactam 3.375 GM in sodium chloride 0.9% (plus) 50 ML IV ×3 (03:26→18:06)
[2024-02-01] MEDS: ipratropium-albuterol 3 mL Neb INHALATION ×3 (07:44→21:22)
--- NOTE | 2024-02-01 08:15 | P.PHAVANC_ITS ---
Vancomycin Goal - Goal Vancomycin Goal:: 15-20 mg/L Vancomycin Indication:: Pneumonia - Therapy Current therapy:: Azithromycin, Pip/Tazo Day of therpy:: Day 1 of [] Actual body weight (kg): 122 lb 11.2 oz [place] body weight: 66 kg Dosing weight (kg): 55.7kg - Data Labs: WBC 14.52 10^3/uL (3.29-11.43) H 01/31/24 20:32 RBC 3.76 10^6/uL (3.85-5.65) L 01/31/24 20:32 Hgb 10.40 g/dL (11.27-16.99) L 01/31/24 20:32 Hct 32.7 % (37-53) L 01/31/24 20:32 MCV 87.0 fl (82-101) 01/31/24 20:32 MCH 27.7 pg (27-33) 01/31/24 20:32 MCHC 31.8 g/dL (30-55) 01/31/24 20:32 RDW 15.5 % (12.1-15.1) H 01/31/24 20:32 Sodium 132 mmol/L (136-145) L 01/31/24 20:32 Potassium 4.0 mmol/L (3.5-5.1) 01/31/24 20:32 Chloride 99 mmol/L (98-107) 01/31/24 20:32 Carbon Dioxide 21 mmol/L (22-29) L 01/31/24 20:32 Anion Gap 16.0 (5-19) 01/31/24 20:32 BUN 17 mg/dL (8-23) 01/31/24 20:32 Creatinine 1.1 mg/dL (0.7-1.2) 01/31/24 20:32 GFR Calculation Not Reportable 01/31/24 20:32 Last dialysis session:: N/A Treatment plan:: new consult Regimen:: Initial dose per telepharmacy: 1000 mg IV Q24hr (infused over 1 hr) AUC/MIRANDA 574 mcg*hr/mL (goal 400 to 600 mcg*hr/mL) Peak 30.1 mcg/mL Trough 18.6 mcg/m. Follow up:: WILL OBTAIN TROUGH BEFORE 4TH DOSE AND CONTINUE TO MONITOR AND FOLLOW UP DAILY.
--- NOTE | 2024-02-01 08:51 | W.PM.EVENTAC ---
Event Note Event Note: History and physical reviewed. Patient seen. Discussed with patient the plan. Currently in the hospital for recurrent pneumonia failing outpatient treatment. Requiring 2 L of oxygen currently. Concern for underlying aspiration as well. Add budesonide today, continue antibiotics, lab tomorrow, speech therapy and modified barium swallow.
[2024-02-01] MEDS: guaiFENesin 600 mg Tablet 1200 MG PO ×2 (09:16→18:07)
[2024-02-01] MEDS: fluticasone nasal spray 16gm Btl 2 SPRAY NASAL (09:17)
--- NOTE | 2024-02-01 13:09 | PC.SLP ---
Speech Therapy evaluation on hold this date due to no one available until 02/02/24 for MBSS.
[2024-02-01] MEDS: budesonide 0.5 mg/2 mL Neb INHALATION (21:22)
--- NOTE | 2024-02-01 22:09 | PC.NURSE ---
[facility]al[facility]an [facility] Unknown if pharmacy has in stock becue pharmacy is not [place] at [place]. Patient states he has them at home, but not with him. Unable to administer them at this time.
[2024-02-01] MEDS: finasteride 5 mg Tablet PO (22:12)
[2024-02-01] MEDS: tamsulosin 0.4 mg Capsule 0.8 MG PO (22:12)
[2024-02-01] MEDS: azithromycin 500 MG in sodium chloride 0.9% 250 ML 250 MG IV (22:13)
[2024-02-01] MEDS: acetaminophen 325 mg Tablet 650 MG PO (22:22)
[2024-02-02] VITALS (18 sets, daily range): BP systolic 112–138; BP diastolic 46–64; PULSE 74–138; RESP 16–22; TEMP 36.6–39.2; O2SAT 88–96
--- NOTE | 2024-02-02 01:03 | FL_ITS ---
WS: [id number] MODIFIED BARIUM SWALLOW TECHNIQUE: Modified barium swallow with speech therapy using multiple consistencies. FLUOROSCOPY TIME: 3min [id number] # of spot films: CLINICAL INFORMATION: Oropharyngeal dysphagia COMPARISON: None. FINDINGS: Multiple consistencies utilized. No evidence of aspiration or penetration. Delayed oropharyngeal phas e. Slight pooling in the vallecula. Slightly delayed transit with the barium tablet in the midesophag us which cleared with additional liquid. Esophageal dysmotility with delayed emptying. Standing colum n of contrast visualized in the esophagus with reflux visualized to the upper esophagus. Patient risk for aspiration. FL/FL barium swallow modifd [id number] IMPRESSION: 1. No evidence of alonzo aspiration or penetration. 2. Delayed oropharyngeal phase. 3. Moderate esophageal dysmotility with delayed emptying and standing column o f contrast in the thoracic esophagus. Reflux also visualized to the mid and upp er esophagus. Patient risk for aspiration. Consider follow-up with endoscopy. 4. Small esophageal hiatal hernia
[2024-02-02] MEDS: ipratropium-albuterol 3 mL Neb INHALATION ×4 (01:36→19:55)
[2024-02-02] MEDS: enoxaparin 40 mg/0.4 mL Syringe SUBCUT (01:49)
[2024-02-02] MEDS: vancomycin 1,000 MG in sodium chloride 0.9% 250 ML 250 MG IV (01:49)
--- NOTE | 2024-02-02 01:56 | PC.NURSE ---
While I was at patient's bedside, RT gave patient specimen cup and educated patient that we need a specimen sample. Patient unable to provide one at this time, but specimen cup was left at bedside and patient verbalized understanding of education.
[2024-02-02] MEDS: piperacillin-tazobactam 3.375 GM in sodium chloride 0.9% (plus) 50 ML IV ×3 (02:54→23:34)
[2024-02-02] MEDS: guaiFENesin 100 mg/5 mL UDC 10 mL 200 MG PO (05:33)
[2024-02-02 06:02] LABS: Basophils % 0.2 %; Eosinophils # 0.1 10^3/uL (0.0-0.8); Eosinophils % 0.9 %; Hematocrit 31.5 % (37-53); Lymphocytes # 0.7 10^3/uL (0.8-4.8); Lymphocytes % 6.1 %; Mean Corpuscular HGB Conc 31.7 g/dL (30-55); Mean Corpuscular Hemoglobin 27.9 pg (27-33); Mean Corpuscular Volume 87.7 fl (82-101); Mean Platelet Volume 9.9 fL (7.4-10.4); Monocytes # 0.6 10^3/uL (0.2-0.9); Monocytes % 5.2 %; Neutrophils # 9.47 10^3/uL (1.8-7.7); Nucleated Red Blood Cells % 0 %; Platelet Count 212 10^3/cmm (157-399); Red Blood Count 3.59 10^6/uL (3.85-5.65); Red Cell Distribution Width 15.6 % (12.1-15.1); White Blood Count 10.88 10^3/uL (3.29-11.43)
[2024-02-02 06:24] LABS: Anion Gap 13.7 (5-19); Blood Urea Nitrogen 14 mg/dL (8-23); Calcium 8.3 mg/dL (8.5-10.5); Carbon Dioxide 24 mmol/L (22-29); Chloride 101 mmol/L (98-107); Creatinine Clr Calc Pharmacy 35.5227; Glucose 102 mg/dL (65-115); Osmolality Calculated 281 mOsm/kg (285-295); Potassium 3.7 mmol/L (3.5-5.1); Sodium 135 mmol/L (136-145)
[2024-02-02] MEDS: budesonide 0.5 mg/2 mL Neb INHALATION ×2 (08:20→19:55)
--- NOTE | 2024-02-02 09:15 | P.PN_ITS ---
Documented by User: DEEP Page STDNT 02/02/24 09:54 Subjective 2 Subjective: Patient is doing well, has been having some dry coughing fits at times without being able to produce a sputum sample. Patient does have chest pain in the center of his chest when coughing, but not at rest. Currently on 2L via nasal cannula. Patient denies headache, abdominal pain, or worsening SOB. Vitals/I&O/Wt Last Vital Signs Temp 99.4 F 02/02/24 07:38 Pulse 93 02/02/24 08:21 Resp 16 02/02/24 08:21 BP 132/64 02/02/24 07:38 Pulse Ox 95 02/02/24 08:21 O2 Del Method Nasal Cannula 02/02/24 08:21 O2 Flow Rate 2 02/02/24 08:21 02/01/24 02/02/24 02/02/24 22:59 06:59 14:59 Intake Total 340 / 990 670 / 1660 120 / 120 Output Total 775 / 1750 750 / 2500 250 / 250 Balance -435 / -760 -80 / -840 -130 / -130 Weight last 48 hrs Weight 120 lb 11.2 oz Weight 122 lb 11.2 oz Weight 120 lb Physical Exam 2 Const: OTHER: Frail elderly male Neck/C-Spine: OTHER: Supple Resp: OTHER: Bilateral coarseness with some wheezing, this has improved. normal chest wall expansion Cardio: OTHER: Normal rate and rhythm without murmurs, rubs, or gallops. GI: OTHER: Soft, nondistended, nontender with bowel sounds Extremity: OTHER: No edema or cyanosis Data 02/02/24 05:50 02/02/24 05:50 Micro: Microbiology 01/31/24 20:33 Blood Culture - Preliminary Blood NEGATIVE TO DATE 01/31/24 20:32 Blood Culture - Preliminary Blood NEGATIVE TO DATE 02/01/24 14:13 Gram Stain - Final Sputum - Expectorated Sputum 02/01/24 02:00 Legionella Urinary Antigen - Final Urine,Voided 02/01/24 02:00 Bacterial Antigens - Final Urine,Voided A&P Assessment and plan (1) Persistent pneumonia: Patient with persistent pneumonia that has failed treatment outpatient Continue DuoNebs Continue Budesonide Continue Azithromycin, Zosyn MRSA PCR negative, stop vanc Sputum culture will be obtained TB testing pending Urine Ag panel negative Legionella Ag negative Blood culture negative to date Continue Mucinex, Flonase Incentive spirometry Continue O2 support as needed Speech therapy for possible aspiration assessment Barium Swallow study ordered (2) Physical deconditioning: Generalized weakness. PT assessment. Case management consultation Possibly benefit from rehab Plan Limited Resuscitation Lovenox for DVT ppx Dysphagia diet Mg was low on admit, was given supplementation on 01/30, continue to monitor levels BPH: continue flomax and Proscar Elevated d-dimer: venous duplex was negative for DVT. CTA showed signs of pulmonary infiltrates and endobronchial plugging suggestive of possible aspiration and/or infection. Chronic bronchiectasis. Elevated BNP: Echo showed EF 60% with mild aortic regurg and grade 1/4 diastolic dysfunction. Elevation likely related to chronic pulmonary disease Coding Level of Care Code 90144 Diagnoses Persistent pneumonia J18.9 Physical deconditioning R53.81 Time Spent (min) 25 Documented by User: Yuriy Berry MD 02/02/24 10:05 Subjective 2 Medications: Reviewed: Yes Data 02/02/24 05:50 02/02/24 05:50 A&P Assessment and plan (1) Persistent pneumonia: (2) Physical deconditioning: Generalized weakness. PT assessment. Case management consultation Possibly benefit from rehab. Patient refusing at this time. Attestations 2 Medical Necessity Statement*: Needs continued hospitalization for IV antibiotics for pneumonia failing outpatient treatment. Patient still requiring oxygen, low-grade temperature elevations. Diagnoses Persistent pneumonia J18.9 Physical deconditioning R53.81 Time Spent (min) 25
[2024-02-02] MEDS: pantoprazole DR 40 mg Tablet PO ×2 (09:16→16:15)
[2024-02-02] MEDS: guaiFENesin 600 mg Tablet 1200 MG PO ×2 (09:16→16:14)
--- NOTE | 2024-02-02 09:55 | PC.CHAP ---
Pastoral Care Encounter/Spiritual Assessment Type of Contact [] Declined bench worker binding visit [] Patient/Family/Request visit [] Outpatient visit [] Follow-up visit [] Physician referral [] Code/Alert [] Routine visit [] Staff referral [] Actively dying [] Patient sleeping [] Family support [] [] Out of room [] Palliative care [] [] Receiving care in room [] Pre-surgical visit [] Trauma [] Long length of stay [] ICU visit [x] Other:Contact precautions. No visit. Relational/Emotional Strength [] Patient feels connected with others/family/visitors/staff [] Distress [] Loneliness/isolation [] Abandonment Spirituality of Patient [] Person of Jeri [] Attends Hindu of their Jeri [] Believes in Prayer [] Reads Bible or Restorationist materials [] There are Spiritual issues to be addressed Claims Agent Right Of Way Interventions [] Prayer [] Active listening [] Non-anxious presence [] Spiritual/emotional support [] Crisis/trauma care [] Spiritual counseling [] Bereavement support [] Provided bereavement packet [] Provided Bible/devotional materials [] Provided toy/stuffed animal, coloring book to patient or family member [] Provided Communion [] Anointing/[place] [] Salvation [] Completed spiritual assessment [] Other: Impact on Illness or Injury [] Angry [] Fearful [] Anxious [] Often cries [] Exhaustion [] Unable to work [] Unable to attend religion [] Unable to walk/stand [] Unable to read [] Unable to drive [] Unable to eat/drink [] Unable to sleep [] Unable to be with family [] Patient intubated [] Other: Summary Time spent with patient
--- NOTE | 2024-02-02 15:13 | ECG_ITS ---
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 Measurements Intervals [place] Rate: 138 P: 0 W[place]: 0 QRS: -26 QRSD: 87 T: 80 QT: 268 QTc: 406 Interpretive Statements ATRIAL FIBRILLATION WITH RAPID VENTRICULAR RESPONSE BORDERLINE LEFT AXIS DEVIATION [QRS AXIS < -20] NONSPECIFIC T-WAVE ABNORMALITY ABNORMAL RHYTHM ECG Compared to ECG 02/01/2024 04:53:29 T-wave abnormality now present Sinus rhythm no longer present Electronically Signed On 02-04-2024 01:08:27 CDT by Naomi Linares M.D. [email or web address]
[2024-02-02] MEDS: enoxaparin 60 mg/0.6 mL Syringe 50 MG SUBCUT (16:14)
[2024-02-02] MEDS: acetaminophen 325 mg Tablet 650 MG PO (16:15)
[2024-02-02] MEDS: metoprolol tartrate 1 mg/1 mL SDV 5 mL 5 MG IVP (16:30)
--- NOTE | 2024-02-02 17:47 | PC.SLP ---
Unable to follow-up with the patient, as the patient has 102 degree temperature.
[2024-02-02] MEDS: azithromycin 500 MG in sodium chloride 0.9% 250 ML 250 MG IV (22:17)
[2024-02-02] MEDS: tamsulosin 0.4 mg Capsule 0.8 MG PO (22:18)
[2024-02-02] MEDS: finasteride 5 mg Tablet PO (22:18)
[2024-02-02] MEDS: latanoprost 0.005% Op Soln 2.5 mL Btl 1 DROP EYE-BOTH (22:18)
[2024-02-02] MEDS: metoprolol tartrate 25 mg Tablet PO (22:18)
[2024-02-03] VITALS (16 sets, daily range): BP systolic 116–161; BP diastolic 51–72; PULSE 72–110; RESP 16–23; TEMP 36.6–38.2; O2SAT 90–94
[2024-02-03] MEDS: ipratropium-albuterol 3 mL Neb INHALATION ×4 (02:48→20:30)
[2024-02-03] MEDS: lanolin oint 7 gm 1 APPLIC TOPICAL (03:38)
[2024-02-03] MEDS: enoxaparin 60 mg/0.6 mL Syringe 50 MG SUBCUT (03:42)
[2024-02-03] MEDS: acetaminophen 325 mg Tablet 650 MG PO ×3 (03:47→22:13)
[2024-02-03 05:53] LABS: Basophils % 0.2 %; Eosinophils # 0.1 10^3/uL (0.0-0.8); Hematocrit 27.4 % (37-53); Lymphocytes # 0.6 10^3/uL (0.8-4.8); Lymphocytes % 6.2 %; Mean Corpuscular HGB Conc 32.8 g/dL (30-55); Mean Corpuscular Hemoglobin 27.9 pg (27-33); Mean Corpuscular Volume 84.8 fl (82-101); Mean Platelet Volume 9.6 fL (7.4-10.4); Monocytes # 0.6 10^3/uL (0.2-0.9); Monocytes % 5.8 %; Neutrophils # 8.65 10^3/uL (1.8-7.7); Neutrophils % 86.3 %; Nucleated Red Blood Cells % 0 %; Platelet Count 194 10^3/cmm (157-399); Red Blood Count 3.23 10^6/uL (3.85-5.65); Red Cell Distribution Width 15.4 % (12.1-15.1); White Blood Count 10.02 10^3/uL (3.29-11.43)
[2024-02-03 06:15] LABS: Anion Gap 14.6 (5-19); Blood Urea Nitrogen 15 mg/dL (8-23); Calcium 7.8 mg/dL (8.5-10.5); Carbon Dioxide 22 mmol/L (22-29); Chloride 106 mmol/L (98-107); Glucose 100 mg/dL (65-115); Osmolality Calculated 289 mOsm/kg (285-295); Potassium 3.6 mmol/L (3.5-5.1); Sodium 139 mmol/L (136-145)
[2024-02-03 06:22] LABS: Magnesium 1.8 mg/dL (1.7-2.3)
[2024-02-03] MEDS: piperacillin-tazobactam 3.375 GM in sodium chloride 0.9% (plus) 50 ML IV (07:10)
[2024-02-03] MEDS: budesonide 0.5 mg/2 mL Neb INHALATION ×2 (08:59→20:30)
[2024-02-03] MEDS: guaiFENesin 600 mg Tablet 1200 MG PO ×2 (09:47→17:57)
[2024-02-03] MEDS: pantoprazole DR 40 mg Tablet PO ×2 (09:47→17:57)
[2024-02-03] MEDS: fluticasone nasal spray 16gm Btl 2 SPRAY NASAL (09:50)
[2024-02-03] MEDS: metoprolol tartrate 25 mg Tablet PO (09:52)
--- NOTE | 2024-02-03 10:31 | PC.CHAP ---
Pastoral Care Encounter/Spiritual Assessment Type of Contact [] Declined creative writer visit [] Patient/Family/Request visit [] Outpatient visit [] Follow-up visit [] Physician referral [] Code/Alert [] Routine visit [] Staff referral [] Actively dying [] Patient sleeping [] Family support [] [] Out of room [] Palliative care [] [] Receiving care in room [] Pre-surgical visit [] Trauma [] Long length of stay [] ICU visit [x] Other:Contact precautions. No visit. Relational/Emotional Strength [] Patient feels connected with others/family/visitors/staff [] Distress [] Loneliness/isolation [] Abandonment Spirituality of Patient [] Person of Jeri [] Attends Temple of their Jeri [] Believes in Prayer [] Reads Bible or Mormonism materials [] There are Spiritual issues to be addressed [employer] Interventions [] Prayer [] Active listening [] Non-anxious presence [] Spiritual/emotional support [] Crisis/trauma care [] Spiritual counseling [] Bereavement support [] Provided bereavement packet [] Provided Bible/devotional materials [] Provided toy/stuffed animal, coloring book to patient or family member [] Provided Communion [] Anointing/[place] [] Salvation [] Completed spiritual assessment [] Other: Impact on Illness or Injury [] Angry [] Fearful [] Anxious [] Often cries [] Exhaustion [] Unable to work [] Unable to attend mosque [] Unable to walk/stand [] Unable to read [] Unable to drive [] Unable to eat/drink [] Unable to sleep [] Unable to be with family [] Patient intubated [] Other: Summary Time spent with patient
--- NOTE | 2024-02-03 10:33 | P.PN_ITS ---
Subjective 2 Subjective: Patient reports he is doing okay. He has been able to wean off oxygen. He did have a temperature of 102.5 ?F yesterday. He states he is coughing less. He is currently on Zosyn and azithromycin. Yesterday he had an event of atrial fibrillation with rapid ventricular rate, for which full anticoagulation was started as well as metoprolol. He is currently sinus rhythm with a heart rate of 80. Medications: Reviewed: Yes Vitals/I&O/Wt Last Vital Signs Temp 99.0 F 02/03/24 07:27 Pulse 80 02/03/24 08:00 Resp 18 02/03/24 08:00 BP 116/51 02/03/24 07:27 Pulse Ox 93 02/03/24 08:00 O2 Del Method Room Air 02/03/24 08:00 O2 Flow Rate 2 02/03/24 00:00 02/02/24 02/03/24 02/03/24 22:59 06:59 14:59 Intake Total 50 / 530 300 / 830 120 / 120 Output Total 200 / 450 100 / 550 Balance -150 / 80 200 / 280 120 / 120 Weight last 48 hrs Weight 52.248 kg Weight 54.749 kg Physical Exam 2 Narrative: General Exam no distress Neck is supple Cardiovascular regular rate and rhythm Lungs coarse bilaterally Abdomen is soft Extremities no cyanosis clubbing edema Data 02/03/24 05:44 02/03/24 05:44 Micro: Microbiology 02/01/24 14:13 Gram Stain - Final Sputum - Expectorated Sputum Sputum Culture - Preliminary A&P Assessment and plan (1) Persistent pneumonia: Patient with persistent pneumonia that has failed treatment outpatient Continue DuoNebs Continue Budesonide Continue Azithromycin, Zosyn MRSA PCR negative, stop vanc Sputum culture final is still pending TB testing pending Urine Ag panel negative Legionella Ag negative Blood culture negative to date Continue Mucinex, Flonase Incentive spirometry Continue O2 support as needed Speech therapy for possible aspiration assessment Barium Swallow study ordered. Results show at risk for aspiration but no overt aspiration. Please see report. Continue minced and moist diet, mildly thick liquids. (2) Physical deconditioning: Generalized weakness. PT assessment. Case management consultation Possibly benefit from rehab. Patient refusing at this time. Plan Atrial fibrillation with rapid ventricular rate. Now is in sinus rhythm. Change Lovenox to Eliquis. Continue metoprolol. Limited Resuscitation Lovenox for DVT ppx Dysphagia diet Mg was low on admit, was given supplementation on 01/30, continue to monitor levels BPH: continue flomax and Proscar Elevated d-dimer: venous duplex was negative for DVT. CTA showed signs of pulmonary infiltrates and endobronchial plugging suggestive of possible aspiration and/or infection. Chronic bronchiectasis. Elevated BNP: Echo showed EF 60% with mild aortic regurg and grade 1/4 diastolic dysfunction. Elevation likely related to chronic pulmonary disease Attestations 2 Medical Necessity Statement*: Needs continued hospitalization for IV antibiotics, secondary to pneumonia. Has not yet even been 24 hours without high fever. Still awaiting cultures. Diagnoses Persistent pneumonia J18.9 Physical deconditioning R53.81 Time Spent (min) 24
[2024-02-03 12:39] LABS: Quantiferon Mitogen 0.76 IU/mL; Quantiferon Nil 0.04 IU/mL; Quantiferon Plus TB1 <0.00 IU/mL; Quantiferon Plus TB2 <0.00 IU/mL; Quantiferon TB Gold NEGATIVE (NEGATIVE)
[2024-02-03] MEDS: FUROsemide 10 mg/mL SDV 4mL 40 MG IVP (14:21)
[2024-02-03] MEDS: meropenem 1,000 mg SDV 1000 MG IVP ×2 (15:14→23:33)
--- NOTE | 2024-02-03 15:36 | PC.OT ---
OT TREATMENT ATTEMPTED. NURSING IN ROOM AND ASKS THERAPY TO HOLD AT THIS TIME.
--- NOTE | 2024-02-03 16:43 | ECG_ITS ---
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 Measurements Intervals Tower Rate: 91 P: 33 NM: 175 QRS: -23 QRSD: 87 T: 51 QT: 323 QTc: 399 Interpretive Statements SINUS RHYTHM WITH FREQUENT SUPRAVENTRICULAR PREMATURE COMPLEXES BORDERLINE LEFT AXIS DEVIATION [QRS AXIS < -20] MODERATE VOLTAGE CRITERIA FOR LVH, CONSIDER NORMAL VARIANT [MEETS CRITERIA IN ONE OF: R(aVL), S(V1), R(V5), R(V5/V6)+S(V1)] ABNORMAL RHYTHM ECG Compared to ECG 02/02/2024 15:16:17 Atrial fibrillation no longer present T-wave abnormality no longer present Electronically Signed On 02-03-2024 16:46:49 CDT by Naomi Linares M.D. [id number]
[2024-02-03] MEDS: azithromycin 500 MG in sodium chloride 0.9% 250 ML 250 MG IV (22:11)
[2024-02-03] MEDS: metoprolol tartrate 50 mg Tablet PO (22:12)
[2024-02-03] MEDS: finasteride 5 mg Tablet PO (22:13)
[2024-02-03] MEDS: apixaban 5 mg Tablet 2.5 MG PO (22:13)
[2024-02-03] MEDS: tamsulosin 0.4 mg Capsule 0.8 MG PO (22:13)
[2024-02-03] MEDS: latanoprost 0.005% Op Soln 2.5 mL Btl 1 DROP EYE-BOTH (22:18)
[2024-02-03] MEDS: guaiFENesin 100 mg/5 mL UDC 10 mL 200 MG PO (22:18)
[2024-02-04] VITALS (12 sets, daily range): BP systolic 100–134; BP diastolic 50–58; PULSE 66–97; RESP 16–20; TEMP 36.6–37.8; O2SAT 87–97
[2024-02-04] MEDS: acetaminophen 325 mg Tablet 650 MG PO ×3 (04:51→20:12)
[2024-02-04] MEDS: guaiFENesin 100 mg/5 mL UDC 10 mL 200 MG PO (04:51)
--- NOTE | 2024-02-04 05:03 | PM.CONSULT ---
Providers/Reason For Consult Attending Physician: Yuriy Berry MD Primary Care Provider: Sarah Roberts APRN History of Present Illness History of Present Illness Yusuf Hayes is a 88 year old male Medications/Allergies Home Medications Medication Instructions Recorded Confirmed Last Taken Type calcium carbonate (Calcium 600) 600 mg PO DAILY@12 11/30/19 02/01/24 01/31/24 History finasteride 5 mg tablet (Proscar) 5 mg PO BEDTIME 11/30/19 02/01/24 01/31/24 History fluticasone propionate 50 1 spray intranasal BEDTIME 11/30/19 02/01/24 01/31/24 History mcg/actuation nasal spray,suspension (Flonase Allergy Relief) ibuprofen 200 mg tablet 200 mg PO BEDTIME PRN Pain 11/30/19 02/01/24 01/31/24 History latanoprost 0.005 % eye drops 1 drp ophthalmic (eye) BEDTIME 11/30/19 02/01/24 01/31/24 History losartan 50 mg tablet 25 mg PO QAM 11/30/19 02/01/24 01/31/24 History omega 2-ggs-abt-fish oil 1,000 mg 1 cap PO DAILY@12 11/30/19 02/01/24 01/31/24 History (120 mg-180 mg) capsule (Fish Oil) omeprazole 20 mg capsule,delayed 20 mg PO DAILY@12 11/30/19 02/01/24 01/31/24 History release tamsulosin 0.4 mg capsule 0.8 mg PO BEDTIME 11/30/19 02/01/24 01/31/24 History calcitonin (salmon) 200 1 spray intranasal (ALT) QAM 02/22/21 02/01/24 01/31/24 History unit/actuation nasal spray multivitamin 1 tab PO DAILY@12 02/22/21 02/01/24 01/31/24 History acetaminophen 500 mg tablet 500 mg PO BEDTIME PRN Pain 11/25/22 02/01/24 01/31/24 History ammonium lactate 12 % topical cream 1 applic topical DAILY PRN unknown 11/25/22 02/01/24 01/31/24 History ondansetron 4 mg disintegrating 4 mg PO Q6H PRN Nausea And Vomiting 11/25/22 02/01/24 01/31/24 History tablet albuterol sulfate 90 mcg/actuation 90 mcg inhalation DIRECTED 02/01/24 02/01/24 01/31/24 History aerosol inhaler hydroxyzine HCl 25 mg tablet 25 mg PO PRN PRN Insomnia 02/01/24 02/01/24 01/31/24 History ipratropium 0.5 mg-albuterol 3 mg 3 ml inhalation QID 02/01/24 02/01/24 01/31/24 History (2.5 mg base)/3 mL nebulization soln Allergies Allergy/AdvReac Type Severity Reaction Status Date / Time No Known Allergies Allergy Verified 01/31/24 19:45 Current Medications Generic Name Dose Route Start Last Admin Trade Name Freq PRN Reason Stop Dose Admin Acetaminophen 650 mg 02/01/24 01:07 02/04/24 04:51 Acetaminophen 325 Mg Tablet PO 650 mg Q6H PRN Administration Mild/Mod Pain Or Temp >/= 101 Albuterol/Ipratropium 3 ml 02/01/24 02:00 02/04/24 04:52 Ipratropium-Albuterol 3 Ml Neb INHALATION Not Given Q6H.RESP JUICE Apixaban 2.5 mg 02/03/24 21:00 02/03/24 22:13 Apixaban 5 Mg Tablet PO 2.5 mg BID@0900,2100 JUICE Administration Budesonide 0.5 mg 02/01/24 20:00 02/03/24 20:30 Budesonide 0.5 Mg/2 Ml Neb INHALATION 0.5 mg BID.RESPIRATORY JUICE Administration Finasteride 5 mg 02/01/24 21:00 02/03/24 22:13 Finasteride 5 Mg Tablet PO 5 mg BEDTIME JUICE Administration Fluticasone Propionate 2 spray 02/01/24 09:00 02/03/24 09:50 Fluticasone Nasal [place] 16gm Btl NASAL 2 spray DAILY JUICE Administration Guaifenesin 1,200 mg 02/01/24 09:00 02/03/24 17:57 Guaifenesin 600 Mg Tablet PO 1,200 mg BID JUICE Administration Guaifenesin 200 mg 02/02/24 05:22 02/04/24 04:51 Guaifenesin 100 Mg/5 Ml Udc 10 Ml PO 200 mg Q6H PRN Administration COUGH AND CONGESTION Azithromycin 500 mg/ Sodium 250 mls @ 250 mls/hr 02/01/24 21:00 02/03/24 23:25 Chloride IV Infused Q24H JUICE Infusion Protocol Lanolin 1 applic 02/02/24 23:38 02/03/24 03:38 Lanolin Oint 7 Gm TOPICAL 1 applic PRN PRN Administration DRYNESS Latanoprost 1 drop 02/01/24 21:00 02/03/24 22:18 Latanoprost 0.005% Op Soln 2.5 Ml Btl EYE-BOTH 1 drop BEDTIME JUICE Administration Meropenem 1,000 mg 02/03/24 15:00 02/03/24 23:33 Meropenem 1,000 Mg Sdv IVP 1,000 mg Q8H JUICE Administration Protocol Metoprolol Tartrate 50 mg 02/03/24 21:00 02/03/24 22:12 Metoprolol Tartrate 50 Mg Tablet PO 50 mg BID@0900,2100 JUICE Administration Pantoprazole Sodium 40 mg 02/01/24 01:10 02/03/24 17:[address] 40 Mg Tablet PO 40 mg BID JUICE Administration Tamsulosin HCl 0.8 mg 02/01/24 21:00 02/03/24 22:13 Tamsulosin 0.4 Mg Capsule PO 0.8 mg BEDTIME JUICE Administration PFSH Acute PFSH: Medical History History of nonmelanoma skin cancer Urinary retention BPH (benign prostatic hyperplasia) Nephrolithiasis Surgical History History of hernia repair History of appendectomy Family History Father , AT AGE 67 CAD (coronary artery disease) Mother , AT AGE 67 Cancer Social History Smoking and tobacco/nicotine status: never used tobacco/nicotine Alcohol intake: never Marital status: Single Current occupational status: retired Vitals/I&O/Wt Last Vital Signs Temp 100.0 F H 02/04/24 00:00 Pulse 83 02/04/24 00:00 Resp 17 02/04/24 00:00 BP 110/58 02/04/24 00:00 Pulse Ox 97 02/04/24 00:00 O2 Del Method Nasal Cannula 02/03/24 20:30 O2 Flow Rate 3 02/03/24 20:30 02/03/24 02/03/24 02/04/24 14:59 22:59 06:59 Intake Total 290 / 290 360 / 650 250 / 900 Output Total 200 / 200 1200 / 1400 Balance 90 / 90 -840 / -750 250 / -500 Weight last 48 hrs Weight 52.248 kg Data 02/03/24 05:44 02/03/24 05:44 Micro: Microbiology 02/01/24 14:13 Gram Stain - Final Sputum - Expectorated Sputum Sputum Culture - Final Coding Level of Care Code Acute Code for Chg Jeanne
[2024-02-04 06:45] LABS: Anion Gap 16.6 (5-19); Blood Urea Nitrogen 18 mg/dL (8-23); Calcium 8.6 mg/dL (8.5-10.5); Carbon Dioxide 24 mmol/L (22-29); Chloride 100 mmol/L (98-107); Creatinine Clr Calc Pharmacy 35.3619; Glucose 101 mg/dL (65-115); Magnesium 1.8 mg/dL (1.7-2.3); Osmolality Calculated 286 mOsm/kg (285-295); Potassium 3.6 mmol/L (3.5-5.1); Sodium 137 mmol/L (136-145)
[2024-02-04 06:50] LABS: Basophils % 0.1 %; Eosinophils # 0.1 10^3/uL (0.0-0.8); Eosinophils % 1.1 %; Hematocrit 30.1 % (37-53); Lymphocytes # 0.5 10^3/uL (0.8-4.8); Lymphocytes % 4.6 %; Mean Corpuscular HGB Conc 32.6 g/dL (30-55); Mean Corpuscular Hemoglobin 28.1 pg (27-33); Mean Corpuscular Volume 86.2 fl (82-101); Mean Platelet Volume 9.7 fL (7.4-10.4); Monocytes # 0.8 10^3/uL (0.2-0.9); Monocytes % 7.9 %; Neutrophils # 9.07 10^3/uL (1.8-7.7); Neutrophils % 85.7 %; Nucleated Red Blood Cells % 0 %; Platelet Count 271 10^3/cmm (157-399); Red Blood Count 3.49 10^6/uL (3.85-5.65); Red Cell Distribution Width 15.3 % (12.1-15.1); White Blood Count 10.59 10^3/uL (3.29-11.43)
[2024-02-04] MEDS: linezolid 600 mg Tablet PO ×2 (07:10→18:18)
[2024-02-04] MEDS: meropenem 1,000 mg SDV 1000 MG IVP ×2 (07:11→18:18)
--- NOTE | 2024-02-04 07:59 | P.PN_ITS ---
Documented by User: DEEP Page STD 02/04/24 10:08 Subjective 2 Subjective: Patient reports he is doing okay, but is cold. He spiked a fever of 100 last night which has resolved. Overnight physician has ordered a respiratory panel and C diff to evaluate for infection and placed patient on linezolid empirically. Patient is still struggling to cough up sputum, but feels that his coughing has improved. He still has coughing fits triggered by talking and breathing in deep. Patient reports chest pain triggered by deep breathing and back pain triggered by coughing. Patient is currently on nasal cannula 3L and is eager to work with PT today. Vitals/I&O/Wt Last Vital Signs Temp 98.5 F 02/04/24 07:50 Pulse 73 02/04/24 07:50 Resp 18 02/04/24 07:50 BP 100/56 02/04/24 07:50 Pulse Ox 93 02/04/24 07:50 O2 Del Method Nasal Cannula 02/04/24 07:50 O2 Flow Rate 3 02/03/24 20:30 02/03/24 02/04/24 02/04/24 22:59 06:59 14:59 Intake Total 360 / 650 370 / 1020 Output Total 1200 / 1400 Balance -840 / -750 370 / -380 Weight last 48 hrs Weight 119 lb 3.2 oz Weight 115 lb 3 oz Physical Exam 2 Const: OTHER: Small and frail elderly male Neck/C-Spine: OTHER: Supple Resp: OTHER: Bilateral coarse crackles in lower lobes. Normal chest wall expansion. Cardio: OTHER: Normal rate and rhythm without murmurs, gallops, or rubs GI: OTHER: Soft, nondistended, nontender with bowel sounds Extremity: OTHER: No edema or cyanosis Data 02/04/24 05:39 02/04/24 05:39 Micro: Microbiology 02/01/24 14:13 Gram Stain - Final Sputum - Expectorated Sputum Sputum Culture - Final A&P Assessment and plan (1) Persistent pneumonia: Patient with persistent pneumonia that has failed treatment outpatient Patient has been spiking fevers off and on, last night had a fever of 100 that has resolved, Respiratory panel and C. diff was ordered and patient was started on linezolid empirically by overnight physician. Continue DuoNebs Continue Budesonide Continue Azithromycin, Meropenem MRSA PCR negative, TB testing was negative, Urine Ag panel negative, Legionella Ag negative Sputum culture was negative, still pending on sputum fungal smear and mycobacterium culture Blood culture negative to date Continue Mucinex, Flonase Incentive spirometry Continue O2 support as needed. Patient may benefit from a flutter valve to aid in expectoration. Wean as tolerated Speech therapy for aspiration assessment Barium Swallow study ordered. Results show at risk for aspiration but no overt aspiration. Please see report. Continue minced and moist diet, mildly thick liquids. (2) Physical deconditioning: Generalized weakness. PT assessment, patient is eager to work with PT today Case management consultation Possibly benefit from rehab. Patient refusing at this time. Plan Atrial fibrillation with rapid ventricular rate. In sinus rhythm since yesterday. Continue metoprolol and Eliquis Limited Resuscitation Lovenox for DVT ppx Dysphagia diet Mg was low on admit, was given supplementation on 01/30, continue to monitor levels BPH: continue flomax and Proscar Elevated d-dimer: venous duplex was negative for DVT. CTA showed signs of pulmonary infiltrates and endobronchial plugging suggestive of possible aspiration and/or infection. Chronic bronchiectasis. Elevated BNP: Echo showed EF 60% with mild aortic regurg and grade 1/4 diastolic dysfunction. Elevation likely related to chronic pulmonary disease Coding Level of Care Code 23679 Diagnoses Persistent pneumonia J18.9 Physical deconditioning R53.81 Time Spent (min) 24 Documented by User: Yuriy Berry MD 02/04/24 10:09 Subjective 2 Medications: Reviewed: Yes Physical Exam 2 Narrative: Tmax 100.8. Data 02/04/24 05:39 02/04/24 05:39 A&P Assessment and plan (1) Persistent pneumonia: Patient with persistent pneumonia that has failed treatment outpatient Patient has been spiking fevers off and on, last night had a fever of 100 that has resolved, Respiratory panel and C. diff was ordered and patient was started on linezolid empirically by overnight physician. Continue DuoNebs Continue Budesonide Continue Meropenem. Linezolid added by infectious disease MRSA PCR negative, TB testing was negative, Urine Ag panel negative, Legionella Ag negative Sputum culture was negative, still pending on sputum fungal smear and mycobacterium culture Blood culture negative to date Continue Mucinex, Flonase Incentive spirometry Continue O2 support as needed. Patient may benefit from a flutter valve to aid in expectoration. Wean as tolerated Speech therapy for aspiration assessment Barium Swallow study ordered. Results show at risk for aspiration but no overt aspiration. Please see report. Continue minced and moist diet, mildly thick liquids. Respiratory panel ordered by ID, negative (2) Physical deconditioning: Attestations 2 Medical Necessity Statement*: Needs continued hospitalization secondary needed for IV antibiotics with community-acquired pneumonia, failing outpatient treatment. Diagnoses Persistent pneumonia J18.9 Physical deconditioning R53.81 Time Spent (min) 24
[2024-02-04] MEDS: budesonide 0.5 mg/2 mL Neb INHALATION ×2 (08:33→20:21)
[2024-02-04] MEDS: ipratropium-albuterol 3 mL Neb INHALATION ×3 (08:33→20:21)
[2024-02-04] MEDS: metoprolol tartrate 50 mg Tablet PO ×2 (09:17→20:12)
[2024-02-04] MEDS: guaiFENesin 600 mg Tablet 1200 MG PO ×2 (09:17→18:18)
[2024-02-04] MEDS: pantoprazole DR 40 mg Tablet PO ×2 (09:17→18:18)
[2024-02-04] MEDS: apixaban 5 mg Tablet 2.5 MG PO ×2 (09:17→20:12)
[2024-02-04] MEDS: fluticasone nasal spray 16gm Btl 2 SPRAY NASAL (09:18)
[2024-02-04 09:49] LABS: Adenovirus Not Detected (NOT DETECT); Chlamydia Pneumoniae Not Detected (NOT DETECT); Coronavirus 229E,HKU1,NL63,OC4 Not Detected (NOT DETECT); Human Metapneumovirus Not Detected (NOT DETECT); Human Rhinovirus/Enterovirus Not Detected (NOT DETECT); Influenza A Not Detected (NOT DETECT); Influenza A H1 Not Detected (NOT DETECT); Influenza A H1-2009 Not Detected (NOT DETECT); Influenza A H3 Not Detected (NOT DETECT); Influenza B Not Detected (NOT DETECT); Mycoplasma Pneumoniae Not Detected (NOT DETECT); Parainfluenza Virus Type 1 Not Detected (NOT DETECT); Parainfluenza Virus Type 2 Not Detected (NOT DETECT); Parainfluenza Virus Type 3 Not Detected (NOT DETECT); Parainfluenza Virus Type 4 Not Detected (NOT DETECT); Respiratory Syncytial Virus A Not Detected (NOT DETECT); Respiratory Syncytial Virus B Not Detected (NOT DETECT); SARS-COV-2 Not Detected (NOT DETECT)
[2024-02-04 14:12] LABS: C.Diff PCR (Lab) NEGATIVE (Negative)
[2024-02-04] MEDS: latanoprost 0.005% Op Soln 2.5 mL Btl 1 DROP EYE-BOTH (20:11)
[2024-02-04] MEDS: finasteride 5 mg Tablet PO (20:12)
[2024-02-04] MEDS: tamsulosin 0.4 mg Capsule 0.8 MG PO (20:12)
[2024-02-05] VITALS (9 sets, daily range): BP systolic 101–115; BP diastolic 49–59; PULSE 69–78; RESP 16–18; TEMP 36.4–37.3; O2SAT 86–96
[2024-02-05] MEDS: acetaminophen 325 mg Tablet 650 MG PO ×2 (02:29→08:42)
[2024-02-05] MEDS: ipratropium-albuterol 3 mL Neb INHALATION ×2 (03:41→08:39)
[2024-02-05 05:48] LABS: Basophils % 0.1 %; Eosinophils # 0.1 10^3/uL (0.0-0.8); Eosinophils % 1.2 %; Hematocrit 28.1 % (37-53); Lymphocytes # 0.7 10^3/uL (0.8-4.8); Lymphocytes % 6.4 %; Mean Corpuscular HGB Conc 32.4 g/dL (30-55); Mean Corpuscular Hemoglobin 27.7 pg (27-33); Mean Corpuscular Volume 85.4 fl (82-101); Mean Platelet Volume 9.8 fL (7.4-10.4); Monocytes # 0.9 10^3/uL (0.2-0.9); Monocytes % 8.4 %; Neutrophils % 83.2 %; Nucleated Red Blood Cells % 0 %; Platelet Count 260 10^3/cmm (157-399); Red Blood Count 3.29 10^6/uL (3.85-5.65); Red Cell Distribution Width 15.2 % (12.1-15.1); White Blood Count 10.21 10^3/uL (3.29-11.43)
[2024-02-05 06:09] LABS: Anion Gap 13.6 (5-19); Blood Urea Nitrogen 24 mg/dL (8-23); Calcium 8.2 mg/dL (8.5-10.5); Carbon Dioxide 25 mmol/L (22-29); Chloride 103 mmol/L (98-107); Creatinine Clr Calc Pharmacy 32.4491; Glucose 109 mg/dL (65-115); Osmolality Calculated 291 mOsm/kg (285-295); Potassium 3.6 mmol/L (3.5-5.1); Sodium 138 mmol/L (136-145)
[2024-02-05] MEDS: meropenem 1,000 mg SDV 1000 MG IVP (06:17)
[2024-02-05] MEDS: linezolid 600 mg Tablet PO (06:17)
--- NOTE | 2024-02-05 06:50 | P.PN_ITS ---
Subjective 2 Subjective: Patient is doing well. He states that his cough has decreased and has gotten up several times on his own. Patient continues to need O2 supplementation since O2 sats have been dropping to the high 80s on room air. Patient currently on 4L via nasal cannula. Patient did not have any reported fevers overnight. Vitals/I&O/Wt Last Vital Signs Temp 99.2 F 02/05/24 04:00 Pulse 76 02/05/24 04:00 Resp 16 02/05/24 04:00 BP 114/49 02/05/24 04:00 Pulse Ox 90 02/05/24 04:00 O2 Del Method Room Air 02/05/24 04:00 O2 Flow Rate 2 02/04/24 20:00 02/04/24 02/04/24 02/05/24 14:59 22:59 06:59 Intake Total 240 / 240 240 / 480 480 / 960 Output Total 300 / 300 250 / 550 Balance -60 / -60 -10 / -70 480 / 410 Weight last 48 hrs Weight 117 lb 4 oz Weight 119 lb 3.2 oz Physical Exam 2 Const: OTHER: Small and frail elderly male. Neck/C-Spine: OTHER: Supple without thyromegaly Resp: OTHER: Bilateral coarse crackles in lower lobes. Normal chest wall expansion. Cardio: OTHER: Normal rate and rhythm without murmurs, gallops, or rubs GI: OTHER: Soft, nondistended, nontender with bowel sounds Extremity: OTHER: No edema or cyanosis Data 02/05/24 05:32 02/05/24 05:32 Coding Level of Care Code Acute Code for Chg Fwd
--- NOTE | 2024-02-05 07:03 | PM.PN ---
Vitals/I&O/Wt Last Vital Signs Temp 99.2 F 02/05/24 04:00 Pulse 76 02/05/24 04:00 Resp 16 02/05/24 04:00 BP 114/49 02/05/24 04:00 Pulse Ox 90 02/05/24 04:00 O2 Del Method Room Air 02/05/24 04:00 O2 Flow Rate 2 02/04/24 20:00 02/04/24 02/05/24 02/05/24 22:59 06:59 14:59 Intake Total 240 / 480 480 / 960 Output Total 250 / 550 Balance - 480 / 410 Weight last 48 hrs Weight 53.184 kg Weight 54.068 kg Data 02/05/24 05:32 02/05/24 05:32 Coding Level of Care Code Acute Code for Chg Fwd
[2024-02-05] MEDS: budesonide 0.5 mg/2 mL Neb INHALATION (08:38)
[2024-02-05] MEDS: apixaban 5 mg Tablet 2.5 MG PO (08:41)
[2024-02-05] MEDS: metoprolol tartrate 50 mg Tablet PO (08:41)
[2024-02-05] MEDS: fluticasone nasal spray 16gm Btl 2 SPRAY NASAL (08:41)
[2024-02-05] MEDS: pantoprazole DR 40 mg Tablet PO (08:41)
[2024-02-05] MEDS: guaiFENesin 600 mg Tablet 1200 MG PO (08:41)
--- NOTE | 2024-02-05 09:55 | PM.DCS ---
Discharge Providers Date of Admission: 02/02/24 07:37 Date of Discharge: February 05, 2024 Attending Provider at Admission: Benoit Zhu Attending Provider at Discharge: Yuriy Berry MD Primary Care Provider: Sarah Roberts APRN Diagnoses at Discharge Discharge Diagnosis (1) Persistent pneumonia: Status: Acute (2) Physical deconditioning: Status: Acute Reason for Visit Reason for Visit: SOB Hospital Course Hospital Course Patient is an 88-year-old white male who presented with fever, coughing, and an extensive outpatient course of antibiotics over the last month for concerns of pneumonia. He was found on CT did not have any pulmonary embolism, but to have bilateral pneumonia. He was placed on Zithromax, vancomycin, Zosyn. He needed oxygen intermittently. Throughout his hospital course he gradually improved. Vancomycin was discontinued as his MRSA PCR was negative. He did have some recurrent fevers and Zosyn was changed to meropenem. ID consult was obtained, and linezolid was added to his regimen. By 02/04 he had been afebrile for over 24 hours, and it was thought he could discharge. Antibiotic regimens as an outpatient were reviewed by ID, and the belief was that he did not have resistant pneumonia. He likely had a viral process, initially and then developed pneumonia. Therefore he will discharge on linezolid, cefdinir for 7 days. He was given opportunity ask questions and agreed with the plan. He had already received atypical coverage with Zithromax 3 days earlier in the hospital course. Cultures at discharge were all negative. He also had a gold TB test that was negative. Blood cultures were negative. He did have an episode of A-fib with RVR while in the hospital. He was placed on metoprolol, which he will discharge with. I also placed him on apixaban, adjusted for age and weight at 2.5 mg twice daily. Risks and benefits were discussed including bleeding. He elected to take. [id number] score over 2. Physical Exam Narrative: General Exam no distress Neck is supple Cardiovascular regular rate and rhythm Lungs occasional wheeze Abdomen is soft Extremities no cyanosis clubbing or edema Discharge Data Studies Completed and Pending Completed Studies During Hospitalization Category Date Time Status CT angio chest PE protcl 62398 Urgent Cat Scan 01/31/24 23:[address] head wo con* [id number] Stat Cat Scan 01/31/24 19:50 Completed FL barium swallow modifd [id number] Routine Exams 02/02/24 01:03 Completed XR chest 1V portable [id number] Stat Exams 01/31/24 19:50 [place] [id number] Routine Ultrasound 02/01/24 01:34 Completed CV. echo complete* [id number] Routine Ultrasound 02/01/24 01:26 Completed Pending at discharge Category Date Time Status AFB [Mycobacteria, Culture w/Fluor] Q8H Lab 02/01/24 01:13 Received AFB [Mycobacteria, Culture w/Fluor] Q8H Lab 02/01/24 09:13 Ordered AFB [Mycobacteria, Culture w/Fluor] Q8H Lab 02/01/24 17:13 Ordered Blood Culture Stat Lab 01/31/24 20:32 Results Fungal Culture not HR/SK/BL Routine Lab 02/01/24 14:13 Received Radiology Impressions Chest X-Ray 01/31/24 19:50 IMPRESSION: 1. Mild bilateral lower lung opacities, see above discussion. 2. Other findings discussed above. Head CT 01/31/24 19:50 IMPRESSION: 1. No acute intracranial hemorrhage or mass effect. 2. Changes of microvascular disease. 3. No definite acute infarct by CT, see above. 4. Paranasal sinus findings as discussed above. 5. Other findings discussed above. Chest CTA 01/31/24 23:50 IMPRESSION: 1. No detectable pulmonary embolus. 2. Significant worsening of pulmonary infiltrates and endobronchial plugging compared to 01/28/2024. Consider aspiration and/or infection. 3. Chronic bronchiectasis. Prior granulomatous disease. Modified Barium Swallow 02/02/24 01:03 IMPRESSION: 1. No evidence of alonzo aspiration or penetration. 2. Delayed oropharyngeal phase. 3. Moderate esophageal dysmotility with delayed emptying and standing column of contrast in the thoracic esophagus. Reflux also visualized to the mid and upper esophagus. Patient risk for aspiration. Consider follow-up with endoscopy. 4. Small esophageal hiatal hernia Laboratory Results WBC 10.21 10^3/uL (3.29-11.43) 02/05/24 05:32 RBC 3.29 10^6/uL (3.85-5.65) L 02/05/24 05:32 Hgb 9.10 g/dL (11.27-16.99) L 02/05/24 05:32 Hct 28.1 % (37-53) L 02/05/24 05:32 MCV 85.4 fl (82-101) 02/05/24 05:32 MCH 27.7 pg (27-33) 02/05/24 05:32 MCHC 32.4 g/dL (30-55) 02/05/24 05:32 RDW 15.2 % (12.1-15.1) H 02/05/24 05:32 Plt Count 260 10^3/cmm (157-399) 02/05/24 05:32 MPV 9.8 fL (7.4-10.4) 02/05/24 05:32 Neut % (Auto) 83.2 % 02/05/24 05:32 Lymph % (Auto) 6.4 % 02/05/24 05:32 [place] % (Auto) 8.4 % 02/05/24 05:32 Eos % (Auto) 1.2 % 02/05/24 05:32 Baso % (Auto) 0.1 % 02/05/24 05:32 Neut # (Auto) 8.50 10^3/uL (1.8-7.7) H 02/05/24 05:32 Lymph # (Auto) 0.7 10^3/uL (0.8-4.8) L 02/05/24 05:32 [place] # (Auto) 0.9 10^3/uL (0.2-0.9) 02/05/24 05:32 Eos # (Auto) 0.1 10^3/uL (0.0-0.8) 02/05/24 05:32 Baso # (Auto) 0.0 10^3/uL (0.0-0.1) 02/05/24 05:32 Nucleated RBC % (auto) 0 % 02/05/24 05:32 Nucleated RBCs # 0.0 /100WBC 02/05/24 05:32 D-Dimer 17.16 ug/mLFEU (0-0.59) H 01/31/24 20:32 Sodium 138 mmol/L (136-145) 02/05/24 05:32 Potassium 3.6 mmol/L (3.5-5.1) 02/05/24 05:32 Chloride 103 mmol/L (98-107) 02/05/24 05:32 Carbon Dioxide 25 mmol/L (22-29) 02/05/24 05:32 Anion Gap 13.6 (5-19) 02/05/24 05:32 BUN 24 mg/dL (8-23) H 02/05/24 05:32 Creatinine 1.3 mg/dL (0.7-1.2) H 02/05/24 05:32 GFR Calculation Not Reportable 02/05/24 05:32 Glucose 109 mg/dL (65-115) 02/05/24 05:32 Calculated Osmolality 291 mOsm/kg (285-295) 02/05/24 05:32 Lactic Acid 1.4 mmol/L (0.5-2.2) 01/31/24 20:32 Calcium 8.2 mg/dL (8.5-10.5) L 02/05/24 05:32 Magnesium 1.8 mg/dL (1.7-2.3) 02/04/24 05:39 Total Bilirubin 0.6 mg/dL (0.15-1.2) 01/31/24 20:32 AST 23 U/L (0-40) 01/31/24 20:32 ALT 16 U/L (0-41) 01/31/24 20:32 Alkaline Phosphatase 89 U/L (40-130) 01/31/24 20:32 Troponin T Baseline 53 ng/L (0-15) H 01/31/24 20:32 Troponin T 120 Minute 54.41 ng/L (0-15) H 01/31/24 22:05 Delta Troponin T 1.41 ABS# (0-10) 01/31/24 22:05 Troponin T Hi Sens 6Hr 60.22 ng/L (0-15) H 02/01/24 01:55 Troponin T Hi Sens 6Hr Delta 7.22 ng/L (0-12) 02/01/24 01:55 C-Reactive Protein 114.3 mg/L (0.0-4.9) H 01/31/24 20:32 NT-Pro-B Natriuret Pep 940 pg/mL (0-450) H 01/31/24 20:32 Total Protein 6.6 g/dL (6.6-8.7) 01/31/24 20:32 Albumin 3.7 g/dL (3.5-5.2) 01/31/24 20:32 Globulin 2.9 g/dL (1.3-4.6) 01/31/24 20:32 Urine Color Yellow (Yellow) 01/31/24 20:31 Urine Appearance Clear (CLEAR) 01/31/24 20: Urine pH 6.0 (5-7) 01/31/24 20:31 Ur Specific [place] 1.016 (1.005-1.030) 01/31/24 20: Urine Protein 1+ (Negative) A 01/31/24 20: Urine Glucose (UA) Negative (Normal) 01/31/24 20: Urine Ketones Negative (Negative) 01/31/24 20: Urine Blood 1+ (Negative) A 01/31/24 20: Urine Nitrate Negative (Negative) 01/31/24 20: Urine Bilirubin Negative (Negative) 01/31/24 20: Urine Urobilinogen 0.2 mg/dL (Negative) 01/31/24 20: Ur Leukocyte Esterase Negative (Negative) 01/31/24 20: Urine RBC 6-10 /hpf (0-2) 01/31/24 20:31 Urine WBC 0-5 /hpf (0-5) 01/31/24 20:31 Ur Squamous Epith Cells 0-5 /hpf (0-5) 01/31/24 20:31 Amorphous Sediment Not Reportable 01/31/24 20:31 Urine Bacteria None seen /hpf (NONE) 01/31/24 20: Hyaline Casts 1.21 /lpf 01/31/24 20:31 Nasal MRSA (PCR) Not detected (Negative) 02/01/24 02:00 Adenovirus (PCR) Not detected (NOT DETECT) 02/04/24 07:50 C. pneumoniae DNA (PCR) Not detected (NOT DETECT) 02/04/24 07:50 C. difficile (PCR) Negative (Negative) 02/04/24 12:20 Coronavirus (PCR) Negative (Negative) 01/31/24 20:31 Coronavirus 229E (PCR) Not detected (NOT DETECT) 02/04/24 07:50 Human Metapneumovir PCR Not detected (NOT DETECT) 02/04/24 07:50 Influenza A (H1) PCR Not detected (NOT DETECT) 02/04/24 07:50 Influenza A (PCR) Negative (Negative) 01/31/24 20:31 Influ A (H1/09) PCR Not detected (NOT DETECT) 02/04/24 07:50 Influenza A (H3) PCR Not detected (NOT DETECT) 02/04/24 07:50 Influenza Type A (PCR) Not detected (NOT DETECT) 02/04/24 07:50 Influenza Type B (PCR) Not detected (NOT DETECT) 02/04/24 07:50 M. pneumoniae (PCR) Not detected (NOT DETECT) 02/04/24 07:50 Parainfluenza 1 (PCR) Not detected (NOT DETECT) 02/04/24 07:50 Parainfluenza 2 (PCR) Not detected (NOT DETECT) 02/04/24 07:50 Parainfluenza 3 (PCR) Not detected (NOT DETECT) 02/04/24 07:50 Parainfluenza 4 (PCR) Not detected (NOT DETECT) 02/04/24 07:50 RSV (PCR) Negative (Negative) 01/31/24 20:31 RSV Type A (PCR) Not detected (NOT DETECT) 02/04/24 07:50 RSV Type B (PCR) Not detected (NOT DETECT) 02/04/24 07:50 Entero/Rhino (PCR) Not detected (NOT DETECT) 02/04/24 07:50 SARS-CoV-2 (PCR) Not detected (NOT DETECT) 02/04/24 07:50 TB (QFT) Gold In Tube Negative (NEGATIVE) 02/01/24 09:20 TB Test (QFT) Nil 0.04 IU/mL 02/01/24 09:20 TB Test (QFT) Mitogen 0.76 IU/mL 02/01/24 09:20 TB Test Mitogen - Nil <0.00 IU/mL 02/01/24 09:20 TB Test TB -Nil <0.00 IU/mL 02/01/24 09:20 Vitals Last Vital Signs Temp 97.5 F L 02/05/24 07:54 Pulse 76 02/05/24 08:20 Resp 18 02/05/24 08:20 BP 107/58 02/05/24 07:54 Pulse Ox 92 02/05/24 09:01 O2 Del Method Room Air 02/05/24 08:20 O2 Flow Rate 2 02/04/24 20:00 Discharge Plan Discharge Patient Disposition: Home Health Service Condition: Stable Prescriptions: New metoprolol tartrate 50 mg Tablet 50 mg PO BID@0900,2100 Qty: 60 0RF guaifenesin [Mucinex] 600 mg Tablet Extended Release 12hr 1,200 mg PO BID Qty: 14 0RF Eliquis 5 mg Tablet 2.5 mg PO BID@0900,2100 Qty: 30 0RF linezolid 600 mg Tablet 600 mg PO Q12H Qty: 14 0RF cefdinir 300 mg capsule 300 mg PO BID 7 Days Qty: 14 0RF Continued latanoprost 0.005 % drops 1 drp ophthalmic (eye) BEDTIME Rx Instructions: both eyes calcium carbonate [Calcium 600] 600 mg calcium (1,500 mg) Tablet 600 mg PO DAILY@12 omeprazole 20 mg Capsule,Delayed Release(Dr/Ec) 20 mg PO DAILY@12 fluticasone propionate [Flonase Allergy Relief] 50 mcg/actuation Martin,Suspension 1 spray INTRANASAL BEDTIME finasteride [Proscar] 5 mg Tablet 5 mg PO BEDTIME omega 4-giz-lxt-fish oil [Fish Oil] 1,000 mg (120 mg-180 mg) Capsule 1 cap PO DAILY@12 tamsulosin 0.4 mg capsule 0.8 mg PO BEDTIME multivitamin Tablet 1 tab PO DAILY@12 calcitonin (salmon) 200 unit/actuation Martin,Non-Aerosol 1 spray INTRANASAL (ALT) QAM albuterol sulfate 90 mcg/actuation HFA aerosol inhaler 90 mcg INHALATION DIRECTED ipratropium-albuterol 0.5 mg-3 mg(2.5 mg base)/3 mL solution for nebulization 3 ml INHALATION QID acetaminophen [Tylenol Ex Str Rapid Release] 500 mg Tablet 500 mg PO BEDTIME PRN (Reason: Pain) ondansetron 4 mg tablet,disintegrating 4 mg PO Q6H PRN (Reason: Nausea And Vomiting) ammonium lactate 12 % cream 1 applic topical DAILY PRN (Reason: unknown) Rx Instructions: Apply neck down daily Discontinued losartan 50 mg Tablet 25 mg PO QAM ibuprofen 200 mg Tablet 200 mg PO BEDTIME PRN (Reason: Pain) hydroxyzine HCl 25 mg tablet 25 mg PO PRN PRN (Reason: Insomnia) Discharge Orders: Discharge Order (Routine); Ordered 02/05/24 Ordered By: Yuriy Berry Other Ambulatory Orders: DME: Oxygen (Order) Location: None Selected Ordered By: Yuriy Berry DME: Walker (Order) Location: None Selected Ordered By: Yuriy Berry Referrals: [facility] [Outside] Discharge Diet: As Directed Discharge Activity: Increase activity as tolerated Patient Instructions: Opioid Safety, Apixaban (By mouth), A-fib (Atrial Fibrillation) (DC) Activity Restrictions/Additional Instructions: Instructed on dysphagia level 6 diet, aspiration precautions Follow-up with primary care provider 3 to 5 days Return for any concerns Take medicine as prescribed Discharge Attestations Time Spent in Discharge Care*: greater than 30 min Quality Metrics Clinical Quality Measures [ No reported AMI, CVA or VTE this stay] Coding Level of Care Code 19099 Total time (in minutes) for Discharge: 35 Diagnoses Persistent pneumonia J18.9 Physical deconditioning R53.81
--- NOTE | 2024-02-05 11:27 | PC.OT ---
Pt seen for OT treatment prior to discharge; pt declines OT treatment at this time due to discharge status.
--- NOTE | 2024-02-05 12:10 | PC.SOCIAL ---
IMM Updated Updated pt on IMM. No questions voiced. Provided pt a copy. Initialed, dated, & timed a copy & placed in chart.
== END 2024-02-05 13:12 | disposition home health service (06) | DRG 195 ==
LOC: ER 23:46 → MEDSURG 23:49
PROVIDERS: Student in an Organized Health Care Education/Training Program; Admitting Provider Internal Medicine; Emergency Provider Emergency Medicine; PCP Nurse Practitioner Family; Visit Provider Internal Medicine
DX: J18.9 Pneumonia, unspecified organism (principal); N40.1 Benign prostatic hyperplasia with lower urinary tract symptoms; R33.8 Other retention of urine; E83.42 Hypomagnesemia; R79.82 Elevated C-reactive protein (CRP); M48.02 Spinal stenosis, cervical region; F41.9 Anxiety disorder, unspecified; J47.9 Bronchiectasis, uncomplicated; I48.91 Unspecified atrial fibrillation; R13.10 Dysphagia, unspecified; Z11.52 Encounter for screening for COVID-19; Z79.51 Long term (current) use of inhaled steroids; Z85.828 Personal history of other malignant neoplasm of skin; Z87.442 Personal history of urinary calculi; Z86.73 Personal history of transient ischemic attack (TIA), and cerebral infarction without residual deficits; Z87.01 Personal history of pneumonia (recurrent)
CPT/HCPCS: 0241U; 36415; 70450; 71045; 71275; 74230; 80048; 80053; 81001; 83605; 83735; 83880; 84484; 85025; 85378; 86140; 86403; 86480; 87015; 87040; 87070; 87102; 87116; 87205; 87206; 87449; 87486; 87493; 87581; 87633; 87801; 92610; 92611; 93005; 93306; 93970; 94640; 94760; 96365; 96372; 96375; 97116; 97161; 97165; 97535; 99285; G0378; J0456; J0696; J1630; J1650; J1940; J2185; J2543; J3370; J3490; J7030; J7050; J7626

== ENCOUNTER 2024-06-23 14:17 | Outpatient (CLI) | payer OTHER, SELFPAY ==
[2024-06-23 14:59] LABS: Basophils % 0.4 %; Eosinophils # 0.1 10^3/uL (0.0-0.8); Hematocrit 40.6 % (37-53); Lymphocytes # 1.1 10^3/uL (0.8-4.8); Lymphocytes % 16.1 %; Mean Corpuscular HGB Conc 29.6 g/dL (30-55); Mean Corpuscular Hemoglobin 27.3 pg (27-33); Mean Corpuscular Volume 92.5 fl (82-101); Mean Platelet Volume 10.2 fL (7.4-10.4); Monocytes # 0.7 10^3/uL (0.2-0.9); Monocytes % 10.6 %; Neutrophils # 4.92 10^3/uL (1.8-7.7); Neutrophils % 71.6 %; Nucleated Red Blood Cells % 0 %; Platelet Count 264 10^3/cmm (157-399); Red Blood Count 4.39 10^6/uL (3.85-5.65); Red Cell Distribution Width 14.8 % (12.1-15.1); White Blood Count 6.88 10^3/uL (3.29-11.43)
[2024-06-23 15:19] LABS: Albumin Level 3.7 g/dL (3.5-5.2); Blood Urea Nitrogen 21 mg/dL (8-23); Calcium 9.4 mg/dL (8.5-10.5); Carbon Dioxide 25 mmol/L (22-29); Chloride 102 mmol/L (98-107); Glucose 121 mg/dL (65-115); Sodium 138 mmol/L (136-145)
[2024-06-23 15:26] LABS: Parathyroid Hormone 39.6 pg/mL (15-65)
[2024-06-23 15:28] LABS: Anion Gap 15.5 (5-19); Potassium 4.5 mmol/L (3.5-5.1)
== END 2024-06-23 14:18 | disposition home or self-care (01) ==
LOC: LAB 14:25
PROVIDERS: PCP Nurse Practitioner Family; Visit Provider Registered Nurse
DX: N18.2 Chronic kidney disease, stage 2 (mild) (principal)
CPT/HCPCS: 36415; 80069; 82310; 83970; 85025